=== PATIENT | female | born 1970 | race Caucasian/White ===

== ENCOUNTER 2017-11-09 02:40 | Emergency (ER) | payer SELFPAY ==
[2017-11-09 02:41] VITALS: BP 195/107; PULSE 84; RESP 16; TEMP 36.7; O2SAT 97; BMI 30.9
[2017-11-09 02:45] VITALS: BP 187/108
--- NOTE | 2017-11-09 02:47 | CT_ITS ---
STUDY: CT ABDOMEN AND PELVIS WITHOUT CONTRAST REASON FOR EXAM: Female, 47 years old. Increasing right flank and abdominal pain, with hematuria for 3 days. RADIATION DOSAGE (If Supplied By Facility): CTDIvol = ( 10.94 ) mGy, DLP = ( 544.12 ) mGycm TECHNIQUE: Transaxial images were obtained from the dome of the diaphragm to the symphysis pubis without oral contrast, and without intravenous contrast. Sagittal and coronal images were reconstructed. Individualized dose optimization techniques were used for this CT. COMPARISON: None. FINDINGS: The visualized lung bases are unremarkable. The visualized portions of the heart are within normal limits. Normal liver. There are several small gallstones. Normal spleen. Normal pancreas. 1.5 x 1.3 cm right adrenal nodule, attenuation -8 Hounsfield units compatible with an adrenal adenoma. Normal left adrenal gland. Normal right kidney. Normal left kidney. No hydronephrosis or urinary tract stones. Normal visualized stomach. Normal small intestine. Normal colon. There is non-visualization of the appendix. No secondary signs of acute appendicitis. Evaluation of the right lower quadrant is limited by streak artifact. Normal abdominal aorta. Normal inferior vena cava. Normal retroperitoneum. No intra-abdominal free air. Normal urinary bladder. Uterus grossly normal. No adnexal masses seen. Multiple vascular structures in the inguinal region bilaterally left greater than right suggestive of varices. Minimal degenerative changes of the lumbar spine. Mild convex left lumbar curvature. CT/Abdomen/Pelvis without Cont IMPRESSION: No acute findings in the abdomen or pelvis. No hydronephrosis or urinary tract stones. Minimal cholelithiasis. Right adrenal adenoma. Multiple vascular structures in the inguinal region bilaterally left greater than right suggestive of varices. This may be secondary to deep venous thrombus in the pelvic veins among other etiologies. No pelvic masses are identified. Consider follow-up abdomen and pelvis with intravenous contrast with delayed images of the pelvis including the inguinal regions. Electronically Signed: Hilario Trevino MD at 3:38 EST , Service support ,
[2017-11-09 02:55] LABS: Bacteria 0 SEEN /hpf (None Seen); Mucous, Urine 0 SEEN /hpf (<or=2+); Red Blood Cells-Urine 0 SEEN /hpf (0-5); White Blood Cells 0 SEEN /hpf (0-5)
[2017-11-09 02:58] LABS: Color, Urine Straw (Yellow); Glucose, Dipstick Normal (Normal); Ketone-Dipstick Negative (Negative); Leukocyte Esterase-Dipstick Negative /ul (Negative); Nitrite-Dipstick Negative (Negative); Occult Blood-Urine 25 /ul (Negative); Protein-Dipstick Negative (Negative); Specific Gravity, Urine 1.005 (1.002-1.030); Urine Bilirubin Dipstick Negative (Negative); Urine Clarity Clear (Clear); Urine Urobilinogen Normal (Normal)
[2017-11-09 03:00] VITALS: BP 168/103
[2017-11-09] MEDS: 0.9% Normal Saline 1,000 ML 250 ML IV (03:00)
[2017-11-09] MEDS: Ketorolac 30 MG/ML Syringe IV (03:00)
[2017-11-09] MEDS: Ondansetron 4 MG/2 ML Vial IV (03:00)
[2017-11-09 03:05] LABS: Squamous Epithelial Cells - UA 0-5 SEEN /hpf (5-10)
[2017-11-09 03:11] LABS: Absolute Lymphocyte Count 2.13 X10^3/ul (0.83-4.51); Absolute Neutrophil Count 4.9 X10^3/uL (2.0-7.7); Basophil# 0.03 X10^3/uL; Basophil% 0.4 % (0-1); Eosinophil# 0.05 X10^3/uL; Eosinophils% 0.7 % (0-5); Hematocrit 40.3 % (37-47); Hemoglobin 14.3 g/dl (12.0-15.0); Lymphocyte # 2.13 X10^3/ul (4.0); Lymphocyte % 27.7 % (19-41); Mean Corp Hgb Conc 35.5 g/gl (32-36); Mean Corpuscular Hgb 30.3 pg (27.0-32.0); Mean Corpuscular Volume 85.4 fL (81-99); Mean Platelet Vol. 10.3 fl (6.2-12.0); Monocyte# 0.52 X10^3/uL; Monocyte% 6.8 % (0-10); Neutrophil # 4.93 X10^3/uL (2.7-7.7); Neutrophil % 64.1 % (47-70); POSITIVE COUNT NO; POSITIVE DIFFERENTIAL NO; POSITIVE MORPHOLOGY NO; Platelet Count 249 K/mm3 (150-450); RBC Distribution Width CV 12.6 % (11.6-14.6); RBC Distribution Width SD 38.9 fl (35.1-43.9); Red Blood Count 4.72 M/mm3 (4.2-5.4); White Blood Count 7.7 K/mm3 (4.4-11.0)
[2017-11-09 03:30] LABS: AST(SGOT) 17 U/L (15-37); Alanine Aminotransfer ALT/SGPT 34 U/L (13-56); Albumin, Serum 3.7 g/dL (3.2-5.0); Alkaline Phosphatase 88 U/L (45-117); Anion Gap 9 (5-15); BUN 5 mg/dL (7-18); BUN/Creat Ratio 7.8 RATIO (10-20); Bilirubin, Direct 0.13 mg/dL (0.00-0.30); Calcium,Total 9.2 mg/dL (8.5-10.1); Chloride 106 mmol/L (98-107); Creatinine, Serum 0.64 mg/dL (0.55-1.02); EST Glomerular Filtration Rate 106 mL/min (>60); Est Glom Filt Rate - Afr Amer 128 mL/min (>60); Estimated Creatinine Clearance 94.85 ml/min; Globulin 4.2 g/dL (2.2-4.2); Glucose 119 mg/dL (70-110); Lipase 116 U/L (73-393); Potassium 3.4 mmol/L (3.5-5.1); Protein, Total 7.9 g/dL (6.4-8.2); Sodium Level 139 mmol/L (136-145)
[2017-11-09] MEDS: Dicyclomine 20 MG/2 ML Vial IM (04:03)
--- NOTE | 2017-11-09 04:09 | CT_ITS ---
STUDY: CT ABDOMEN AND PELVIS WITH CONTRAST REASON FOR EXAM: Female, 47 years old. Right-sided pain with hematuria for [address] Possible inguinal varices. RADIATION DOSAGE (If Supplied By Facility): CTDIvol = ( 15.06 ) mGy, DLP = ( 1778.82 ) mGycm TECHNIQUE: Transaxial images were obtained from the dome of the diaphragm to the symphysis pubis without oral contrast. 100ML ml of Isovue 300 contrast was administered. Sagittal and coronal images were reconstructed. Individualized dose optimization techniques were used for this CT. COMPARISON: Contrast CT abdomen and pelvis November 09, 2017 at 3:05 AM. FINDINGS: The visualized lung bases are unremarkable. The visualized portions of the heart are within normal limits. Normal liver. There are a few small gallstones noted previously. Normal spleen. Normal pancreas. Normal bilateral adrenal glands. Normal right kidney. Normal left kidney. Normal visualized stomach. Normal small intestine. Normal colon. There is non-visualization of the appendix. Normal abdominal aorta. Normal inferior vena cava. Normal retroperitoneum. Normal urinary bladder. Uterus grossly normal. No adnexal masses seen. Thinning of the anterior pelvic wall in the midline unchanged. Normal osseous structures. There are numerous varices within the inguinal region left much greater than right and along the anterior and medial margin of the thigh bilaterally. The inferior vena cava is visualized and appears patent. Deep venous thrombus is not seen within the pelvic veins although evaluation is limited as the contrast bolus is not within the pelvic veins. No pelvic sidewall lymphadenopathy. Masses identified within the pelvis. CT/Abdomen/Pelvis W IV Cont ONLY IMPRESSION: Multiple varices involving the inguinal region bilaterally left greater than right, as well as the periphery of the upper thigh, most likely secondary to venous insufficiency. This can be evaluated with ultrasound tailored for evaluation of venous insufficiency. Minimal cholelithiasis. No acute findings in the abdomen or pelvis.. Electronically Signed: Hilario Trevino MD at 5:38 EST , Service support ,
--- NOTE | 2017-11-09 05:45 | ED.DCSUM_ITS ---
- ER Visit Summary Date of Service: 11/09/17 Chief Complaint: Abdominal pain, hematuria History of Present Illness: The patient is a 47 F who presents with the above symptoms. She has had this for 2 days. She states that she started having some gross hematuria but now that the better but she still notices some blood in her urine. She denies dysuria. No history of kidney stones in the past. She denies any suprapubic abdominal pain but has abdominal pain higher in her abdomen. She has had no nausea or vomiting. It radiates up into her chest. She denies a fever. She took aspirin at home for her symptoms. Physical Examination: Vital signs reviewed. HEENT exam unremarkable. Heart is regular rate and rhythm without murmurs. Lungs are clear to auscultation. Abdomen is soft with mild diffuse tenderness to palpation. Extremities reveal no edema. Skin exam normal. Neurologic exam normal. Test Results: Laboratory studies are normal except for potassium 3.4 and glucose of 119. Urinalysis shows no blood or infection. Emergency Department Course and Treatment: Patient was given Toradol and Zofran. She was still having pain so she was given morphine and Bentyl. CAT scan without contrast reveals some questionable varices versus venous thrombosis down in the pelvis. Radiologist recommended a scan with IV contrast. This was obtained and it shows confirmation of the varices which is likely due to venous insufficiency. Patient currently feels better. Treatment Plan: She will be discharged home with Bentyl. I am unclear the etiology of her symptoms. Solid organs, appendix, gallbladder all seem to be unremarkable. No signs of kidney stones or UTI Disposition: Discharge Impression: Abdominal pain This note was generated with [employer] dictation software. It may contain incorrect words, spelling, and punctuation that were not noted in review of the chart prior to signing ED Disposition - Plan for ED Patient: Chief Complaint: Flank Pain Referrals: Jeffrey Marie MD [Primary Care Provider] -
--- NOTE | 2017-11-09 05:45 | ED.DEP ---
ED Disposition - Plan for ED Patient: Disposition: Home or Assisted Living Chief Complaint: Flank Pain Instructions: ED Flank Pain Uncertain Cause Prescriptions: Dicyclomine HCl [Bentyl] 20 mg PO TIDAC #20 cap Referrals: Jeffrey Marie MD [Primary Care Provider] -
[2017-11-09 07:10] VITALS: BP 172/101
[2017-11-09 07:22] VITALS: BP 153/101; PULSE 79; RESP 26; O2SAT 96
[2017-11-09 08:20] VITALS: BP 147/96; PULSE 76; RESP 21; O2SAT 93
== END 2017-11-09 08:21 | disposition home or self-care (01) ==
PROVIDERS: Emergency Provider Emergency Medicine; Family Provider Family Medicine; PCP Family Medicine
DX: R10.9 Unspecified abdominal pain (principal); R31.9 Hematuria, unspecified; I86.2 Pelvic varices
CPT/HCPCS: 74176; 80048; 80076; 81001; 83690; 84484; 85025; 96361; 96372; 96374; 96375; 99285; J7030; Q9967; J2405

== ENCOUNTER 2022-01-15 07:11 | Emergency (ER) | payer OTHER, SELFPAY ==
[2022-01-15 07:12] VITALS: BP 176/101; PULSE 83; RESP 16; TEMP 36.6; O2SAT 97; BMI 27.8
[2022-01-15 07:14] VITALS: BP 168/95; PULSE 83; RESP 16; TEMP 36.6; O2SAT 97
--- NOTE | 2022-01-15 07:27 | ED.VIS.GI ---
HPI HPI - GI History of Present Illness Chief Complaint: Abd Pain Informant: patient Abdominal Pain/Flank Pain Onset: Weeks (1) Context: Gradual Onset Timing: Continuous Quality: Aching Location: Diffuse Worsened by: Food Relieved by: Nothing Nausea/Vomiting/Emesis GI Symptom: Positive for Nausea and Vomiting Quality: Positive for Nonbilious; Negative for Blood streaks, Coffee ground and Hematemesis Diarrhea/Melena/Hematochezia GI Symptom: Negative for Diarrhea, Melena and Hematochezia Associated Symptoms Associated Symptoms: Negative for Dysuria, Frequency and Hematuria Narrative Narrative: Patient presents with abdominal pain that has been getting progressively worse over the past week. Patient states her pain is diffuse across her abdomen. Patient states it is worse with eating. Patient states nothing seems to help with it. Patient admits to some nausea and vomiting. Patient denies any diarrhea, melena, or hematochezia. Patient states she has been constipated. Patient tried enemas at home with no improvement. Patient denies any urinary complaints. Patient denies any fevers or chills. PFSH PFSH Medical History no medical history no medical history Home Medications magnesium citrate 300 ml PO X1 #1 bottle 01/15/22 [Rx Last Taken Unknown] Allergy/AdvReac Type Severity Reaction Status Date / Time No Known Allergies Allergy Verified 01/15/22 07:15 Surgical History Hx of cholecystectomy Social History Smoking Status: Never smoker ROS ROS ED Constitutional Constitutional ED: Denies chills or fever(s) Eyes Eyes: Denies blurry vision or change in vision ENT ENT ED: Denies rhinorrhea or sore throat Cardiovascular Cardiovascular: Denies chest pain or palpitations Respiratory/Chest Respiratory/Chest: Denies cough or dyspnea Gastrointestinal Gastrointestinal: Reports abdominal pain, constipation, nausea and vomiting; Denies diarrhea or melena Genitourinary Genitourinary ED: Denies dysuria or hematuria Musculoskeletal Musculoskeletal: Denies back pain or neck pain Integumentary Denies abscess or rash Neurologic Neurologic: Reports headache(s); Denies weakness Allergic/Immunologic Allergic/Immunologic ED: Denies mouth swelling or urticaria EXAM Physical Exam Const Vital Signs: 01/15/22 07:12 01/15/22 07:14 01/15/22 10:53 Temperature 97.9 F 97.9 F 98.1 F Temperature Source Oral Oral Oral Pulse Rate 83 83 78 Respiratory Rate 16 16 16 Blood Pressure 176/101 H 168/95 H 156/98 H Blood Pressure Mean 126 119 117 Pulse Ox 97 97 98 Oxygen Delivery Method Room Air Room Air Room Air 01/15/22 11:21 Temperature 98.1 F Temperature Source Oral Pulse Rate 78 Respiratory Rate 16 Blood Pressure 156/98 H Blood Pressure Mean 117 Pulse Ox 98 Oxygen Delivery Method Room Air Positive well nourished and well developed General Appearance ED: well developed and NAD HEENT Reports moist mucous membranes Neck supple and no JVD Resp normal respiratory effort and clear to auscultation bilaterally Cardio regular rate and regular rhythm GI Inspection: abdominal distention Auscultation: hypoactive bowel sounds Palpation: soft and tender epigastric, LLQ, RLQ, LUQ, RUQ, periumbilical and suprapubic; Negative for guarding or rebound tenderness present Neuro CN's II-XII intact bilaterally, moves all extremities and no sensory deficits noted Sensorium / Orientation: alert, oriented to person, oriented to place, oriented to time and orientation impaired Motor Exam: strength 5/5 throughout Psych mental status grossly normal MDM MDM MDM Narrative Medical decision making narrative: Patient was given IV fluids, morphine, and Zofran. CBC was within normal limits. Comprehensive metabolic profile showed a mild hypokalemia of 3.0. Urinalysis does not show any evidence of urinary tract infection or hematuria. CT scan of the abdomen pelvis was obtained. There is a very large amount of fecal material seen throughout the entire colon. There is no evidence of bowel obstruction. This was interpreted by the radiologist and reviewed by myself. Patient was given a soapsuds enema with minimal improvement. Patient was advised of her findings. Patient was instructed to drink plenty of fluids. Patient was given a prescription for magnesium citrate. Patient was also instructed to get [id number] MiraLAX to take as needed for constipation. Patient was instructed to follow-up with her primary care physician in 5 to 7 days. Patient and family understood and were agreeable with the plan. All questions were answered. Lab Data Attestation: I reviewed the patient's lab results. Labs: Laboratory Results - last 24 hr 01/15/22 01/15/22 01/15/22 07:25 07:25 08:08 WBC 6.6 RBC 4.41 Hgb 12.7 Hct 36.6 L MCV 83.0 MCH 28.8 MCHC 34.7 RDW Std Deviation 41.5 RDW Coeff of Jameel 13.6 Plt Count 273 MPV 9.7 Immature Gran % (Auto) 0.300 Neut % (Auto) 68.4 Lymph % (Auto) 20.6 [place] % (Auto) 9.9 Eos % (Auto) 0.5 Baso % (Auto) 0.3 Absolute Neuts (auto) 4.5 Absolute Lymphs (auto) 1.35 Nucleated RBC % 0 Reactive Lymphocytes RARE Sodium 138 Potassium 3.0 L Chloride 106 Carbon Dioxide 26.0 Anion Gap 6 BUN 10 Creatinine 0.47 L Estim Creat Clear Calc 123.66 Est GFR (MDRD) Af Amer 180 Est GFR (MDRD) Non-Af 149 BUN/Creatinine Ratio 21.3 H Glucose 106 Calcium 8.5 Total Bilirubin 0.40 AST 16 ALT 23 Alkaline Phosphatase 120 H Total Protein 6.9 Albumin 3.2 Globulin 3.7 Albumin/Globulin Ratio 0.9 Lipase 40 L Urine Color Yellow Urine Clarity Clear Urine pH 6.5 Ur Specific [place] 1.015 Urine Protein Negative Urine Glucose (UA) Normal Urine Ketones 15 H Urine Occult Blood Negative Urine Nitrite Negative Urine Bilirubin Negative Urine Urobilinogen Normal Ur Leukocyte Esterase Negative Urine RBC 0-5 SEEN Urine WBC 0 SEEN Ur Squamous Epith Cells 0-5 SEEN Urine Bacteria RARE Urine Mucus 0 SEEN Radiography Diagnostic Testing: Clinical Impression(s) from Imaging Studies Abdomen/Pelvis CT 01/15/22 07:30 IMPRESSION: A very large amount of fecal material is seen throughout the colon. The patient is status post cholecystectomy Electronically Signed: Joel Mills MD at 9:48 EDT , Discharge Plan Triage Chief Complaint: Abd Pain ED Provider: Chester Foster Dx/Rx/DC Orders Clinical Impression: Constipation, Abdominal pain Instructions: ED Constipation (Adult) Prescriptions: New magnesium citrate Solution 300 ml PO X1 Qty: 1 RF: 0 Primary Care Provider: Jeffrey Marie Referrals: Jeffrey Marie DO [Primary Care Provider] - 3-5 Days Activity Restrictions/Additional Instructions: You may also take [id number] MiraLAX as needed for constipation. Disposition Disposition: Home, Self Care Discharge Date/Time: 01/15/22 12:36
--- NOTE | 2022-01-15 07:30 | CT_ITS ---
STUDY: CT ABDOMEN AND PELVIS WITH CONTRAST REASON FOR EXAM: Female, 51 years old. One-week history of constipation. RADIATION DOSAGE (If Supplied By Facility): CTDIvol = ( 10.19 ) mGy, DLP = ( 536.25 ) mGycm TECHNIQUE: Transaxial images were obtained from the dome of the diaphragm to the symphysis pubis with oral contrast. Oral and amp; IV Gastrografin and amp; 100mL Isovue-300 was administered. Sagittal and coronal images were reconstructed. Individualized dose optimization techniques were used for this CT. COMPARISON: Comparison is made with prior examination dated 11/09/2017. FINDINGS: Minimal increased markings at the lung bases suggests a mild degree of atelectasis. The visualized portions of the heart are within normal limits. Normal liver. The patient is status post cholecystectomy. Normal spleen. Normal pancreas. Normal bilateral adrenal glands. Normal right kidney. Normal left kidney. There is a small hiatal hernia. Normal small intestine. A very large amount of fecal material is seen throughout the entire colon down to the rectum. Scattered sigmoid diverticula. The appendix is visualized and appears normal. Normal abdominal aorta. Normal inferior vena cava. Normal retroperitoneum. The urinary bladder is distended. Normal abdominal wall. Normal osseous structures. CT/Abdomen/Pelvis WITH Contrast IMPRESSION: A very large amount of fecal material is seen throughout the colon. The patient is status post cholecystectomy Electronically Signed: Joel Mills MD at 9:48 EDT ,
[2022-01-15] MEDS: Ondansetron 4 MG/2 ML Vial IV (07:38)
[2022-01-15] MEDS: 0.9% Normal Saline 1,000 ML 1000 ML IV (07:38)
[2022-01-15 07:40] LABS: Absolute Lymphocyte Count 1.35 X10^3/uL (0.83-4.51); Absolute Neutrophil Count 4.5 X10^3/uL (2.0-7.7); Basophil# 0.02 X10^3/uL; Basophil% 0.3 % (0-1); Eosinophil# 0.03 X10^3/uL; Eosinophils% 0.5 % (0-5); Hematocrit 36.6 % (37-47); Hemoglobin 12.7 g/dL (12.0-15.0); Lymphocyte # 1.35 X10^3/ul (0.83-4.51); Lymphocyte % 20.6 % (19-41); Mean Corp Hgb Conc 34.7 g/dL (32-36); Mean Corpuscular Hgb 28.8 pg (27.0-32.0); Mean Platelet Vol. 9.7 fl (6.2-12.0); Monocyte# 0.65 X10^3/uL; Monocyte% 9.9 % (0-10); NRBC Flagged by Analyzer 0 % (0-5); Neutrophil # 4.49 X10^3/uL (2.7-7.7); Neutrophil % 68.4 % (47-70); POSITIVE MORPHOLOGY YES; Platelet Count 273 K/mm3 (150-450); RBC Distribution Width CV 13.6 % (11.6-14.6); RBC Distribution Width SD 41.5 fl (35.1-43.9); Red Blood Count 4.41 M/mm3 (4.2-5.4); White Blood Count 6.6 K/mm3 (4.4-11.0)
[2022-01-15 07:42] LABS: Differential Indicated SCAN CRITERIA MET
[2022-01-15 07:56] LABS: ALB/GLOB Ratio 0.9 RATIO (0.9-2.4); AST(SGOT) 16 U/L (15-37); Alanine Aminotransfer ALT/SGPT 23 U/L (13-56); Albumin, Serum 3.2 g/dL (3.2-5.0); Alkaline Phosphatase 120 U/L (45-117); Anion Gap 6 (5-15); BUN 10 mg/dL (7-18); BUN/Creat Ratio 21.3 RATIO (10-20); Calcium,Total 8.5 mg/dL (8.5-10.1); Chloride 106 mmol/L (98-107); Creatinine, Serum 0.47 mg/dL (0.55-1.02); EST Glomerular Filtration Rate 149 mL/min (>60); Est Glom Filt Rate - Afr Amer 180 mL/min (>60); Estimated Creatinine Clearance 123.66 ml/min; Globulin 3.7 g/dL (2.2-4.2); Glucose 106 mg/dL (74-106); Lipase 40 U/L (73-393); Protein, Total 6.9 g/dL (6.4-8.2); Sodium Level 138 mmol/L (136-145)
[2022-01-15 08:12] LABS: Mucous, Urine 0 SEEN /hpf (<or=2+); White Blood Cells 0 SEEN /hpf (0-5)
[2022-01-15 08:15] LABS: Color, Urine Yellow (Yellow); Glucose, Dipstick Normal (Normal); Ketone-Dipstick 15 mg/dl (Negative); Leukocyte Esterase-Dipstick Negative /ul (Negative); Nitrite-Dipstick Negative (Negative); Occult Blood-Urine Negative /ul (Negative); Protein-Dipstick Negative (Negative); Specific Gravity, Urine 1.015 (1.002-1.030); Urine Bilirubin Dipstick Negative (Negative); Urine Clarity Clear (Clear); Urine Urobilinogen Normal (Normal); Urine pH 6.5 (5.0 - 8.0)
[2022-01-15 08:21] LABS: Bacteria RARE /hpf (None Seen); Red Blood Cells-Urine 0-5 SEEN /hpf (0-5); Squamous Epithelial Cells - UA 0-5 SEEN /hpf (5-10)
[2022-01-15 08:41] LABS: Reactive Lymphocyte RARE
[2022-01-15 10:53] VITALS: BP 156/98; PULSE 78; RESP 16; TEMP 36.7; O2SAT 98
[2022-01-15 11:21] VITALS: BP 156/98; PULSE 78; RESP 16; TEMP 36.7; O2SAT 98
== END 2022-01-15 12:36 | disposition home or self-care (01) ==
PROVIDERS: Emergency Provider Emergency Medicine; PCP Family Medicine; Visit Provider Emergency Medicine
DX: K59.00 Constipation, unspecified (principal); R10.9 Unspecified abdominal pain; R11.2 Nausea with vomiting, unspecified; E87.6 Hypokalemia; Z90.49 Acquired absence of other specified parts of digestive tract
CPT/HCPCS: 74177; 80053; 81001; 83690; 85025; 96361; 96374; 99285; Q9967; A4216; J2405

== ENCOUNTER 2022-02-17 20:34 | Inpatient (IN) | payer OTHER, SELFPAY ==
[2022-02-17 20:35] VITALS: BP 136/98; PULSE 98; RESP 16; TEMP 36.7; O2SAT 94; BMI 26.5
--- NOTE | 2022-02-17 20:55 | CT_ITS ---
STUDY: CT ABDOMEN AND PELVIS WITH CONTRAST REASON FOR EXAM: Female, 51 years old. Abdominal pain, edema of the legs RADIATION DOSAGE (If Supplied By Facility): CTDIvol = ( 14.06 ) mGy, DLP = ( 906.91 ) mGycm TECHNIQUE: Transaxial images were obtained from the dome of the diaphragm to the symphysis pubis with oral contrast. 100 mm ISOVUE 300 was administered. Sagittal and coronal images were reconstructed. Individualized dose optimization techniques were used for this CT. COMPARISON: None. FINDINGS: The visualized lung bases are unremarkable. The visualized portions of the heart are within normal limits. Normal liver. There is non-visualization of the gallbladder, which may be secondary to either contraction or a prior cholecystectomy. Normal spleen. Normal pancreas. Normal bilateral adrenal glands. Normal right kidney. Normal left kidney. There is a small hiatal hernia. No dilated loops of small bowel although some fecal content identified in the distal bowel. Diffuse distention throughout the colon with significant fecal residue involving the cecum, transverse colon, descending colon and rectosigmoid colon. There is non-visualization of the appendix. Normal abdominal aorta. Flat/nondistended inferior vena cava. Normal retroperitoneum. Normal urinary bladder. Trace free fluid in the right lower quadrant (image 88 series 2) Normal abdominal wall. No destructive bony process. CT/Abdomen/Pelvis WITH Contrast IMPRESSION: 1. Significant diffuse colonic fecal material throughout the colon, extending to the rectosigmoid colon. 2. Trace right lower quadrant free fluid. Electronically Signed: Eyad Wilkins MD ([place]) at 23:01 EDT ,
[2022-02-17 21:12] LABS: Bacteria 0 SEEN /hpf (None Seen); Mucous, Urine 0 SEEN /hpf (<or=2+); Red Blood Cells-Urine 0 SEEN /hpf (0-5); Squamous Epithelial Cells - UA 0 SEEN /hpf (5-10); White Blood Cells 0 SEEN /hpf (0-5)
[2022-02-17 21:15] LABS: Absolute Lymphocyte Count 2.42 X10^3/uL (0.83-4.51); Absolute Neutrophil Count 3.8 X10^3/uL (2.0-7.7); Basophil# 0.03 X10^3/uL; Basophil% 0.4 % (0-1); Eosinophil# 0.05 X10^3/uL; Eosinophils% 0.7 % (0-5); Hematocrit 34.9 % (37-47); Hemoglobin 11.7 g/dL (12.0-15.0); Lymphocyte # 2.42 X10^3/ul (0.83-4.51); Lymphocyte % 34.5 % (19-41); Mean Corp Hgb Conc 33.5 g/dL (32-36); Mean Corpuscular Hgb 28.2 pg (27.0-32.0); Mean Corpuscular Volume 84.1 fL (81-99); Mean Platelet Vol. 8.9 fl (6.2-12.0); Monocyte# 0.74 X10^3/uL; Monocyte% 10.5 % (0-10); NRBC Flagged by Analyzer 0 % (0-5); Neutrophil # 3.76 X10^3/uL (2.7-7.7); Neutrophil % 53.6 % (47-70); POSITIVE MORPHOLOGY YES; Platelet Count 366 K/mm3 (150-450); RBC Distribution Width CV 13.8 % (11.6-14.6); RBC Distribution Width SD 42.3 fl (35.1-43.9); Red Blood Count 4.15 M/mm3 (4.2-5.4)
[2022-02-17 21:21] LABS: Differential Indicated SCAN CRITERIA MET
[2022-02-17 21:31] LABS: Color, Urine Yellow (Yellow); Glucose, Dipstick Normal (Normal); Ketone-Dipstick Negative (Negative); Leukocyte Esterase-Dipstick Negative /ul (Negative); Nitrite-Dipstick Negative (Negative); Occult Blood-Urine Negative /ul (Negative); Protein-Dipstick Negative (Negative); Specific Gravity, Urine 1.005 (1.002-1.030); Urine Bilirubin Dipstick Negative (Negative); Urine Clarity Clear (Clear); Urine Urobilinogen Normal (Normal)
[2022-02-17 21:42] LABS: ALB/GLOB Ratio 0.8 RATIO (0.9-2.4); AST(SGOT) 38 U/L (15-37); Alanine Aminotransfer ALT/SGPT 53 U/L (13-56); Albumin, Serum 2.6 g/dL (3.2-5.0); Alkaline Phosphatase 132 U/L (45-117); Anion Gap 5 (5-15); BUN 9 mg/dL (7-18); BUN/Creat Ratio 15.8 RATIO (10-20); Calcium,Total 8.3 mg/dL (8.5-10.1); Chloride 99 mmol/L (98-107); Creatinine, Serum 0.57 mg/dL (0.55-1.02); EST Glomerular Filtration Rate 119 mL/min (>60); Est Glom Filt Rate - Afr Amer 144 mL/min (>60); Estimated Creatinine Clearance 97.68 ml/min; Globulin 3.1 g/dL (2.2-4.2); Glucose 119 mg/dL (74-106); Lipase 96 U/L (73-393); Potassium 2.9 mmol/L (3.5-5.1); Protein, Total 5.7 g/dL (6.4-8.2); Sodium Level 138 mmol/L (136-145)
[2022-02-17 21:56] LABS: Differential Comment SCANNED
[2022-02-17 22:44] VITALS: BP 154/98; PULSE 74; RESP 17; TEMP 36.8; O2SAT 98
--- NOTE | 2022-02-17 23:04 | EDS_ITS ---
HPI History of Present Illness Chief Complaint: Edema Informant: patient Narrative Narrative: 51-year-old female presenting to the emergency room with abdominal distention bilateral feet swelling. Patient was seen in the emergency room in January and had a tremendous amount of stool burden. She states that she went home and was able to have bowel movements. Now she states that she is distended not passing much gas and having very little bowel movement. She states that she has battled constipation for most of her life. She is otherwise a healthy individual takes a ARB for hypertension. She does not recall any recent [id number] medications. She does not recall any severe diarrhea earlier in the year [facility] Medical History (Updated 02/17/22 @ 23:[address] Mark Redd DO) Hypertension Home Medications telmisartan 40 mg PO DAILY 02/17/22 [History Last Taken Unknown] Allergy/AdvReac Type Severity Reaction Status Date / Time No Known Allergies Allergy Verified 02/17/22 20:42 Surgical History Hx of cholecystectomy Social History (Updated 02/17/22 @ 23:[address] Mark Redd DO) Smoking Status: Never smoker substance use type: does not use ROS ROS ED Constitutional Constitutional ED: Denies chills or weight loss Eyes Eyes: Denies change in vision or diplopia ENT ENT ED: Denies ear pain, rhinorrhea or sore throat Cardiovascular Cardiovascular: Denies chest pain, orthopnea, palpitations or racing heartbeat Respiratory/Chest Respiratory/Chest: Denies cough, dyspnea or orthopnea Gastrointestinal Gastrointestinal: Denies abdominal pain, diarrhea, nausea or vomiting Genitourinary Genitourinary ED: Denies dysuria, hematuria or urinary frequency Musculoskeletal Musculoskeletal: Denies arthralgias or myalgias Integumentary Denies abscess or rash Neurologic Neurologic: Denies headache(s) or weakness Psychiatric Psychiatric: Denies anxiety, depression, suicidal ideation or suicidal thoughts Endocrine Endocrinology: Denies polydipsia, polyphagia or polyuria Allergic/Immunologic Allergic/Immunologic ED: Denies mouth swelling, tongue swelling or urticaria EXAM Physical Exam Const Vital Signs: 02/17/22 20:35 02/17/22 21:30 02/17/22 22:44 Temperature 98.0 F 98.2 F Temperature Source Temporal Temporal Pulse Rate 98 74 Respiratory Rate 16 17 Respiratory Effort Normal Respiratory Pattern Normal Blood Pressure 136/98 H 154/98 H Blood Pressure Mean 110 116 Pulse Ox 94 98 Oxygen Delivery Method Room Air Room Air Positive well nourished and well developed General Appearance ED: well developed HEENT Reports normocephalic, head/scalp atraumatic, TM's clear and moist mucous membranes Negative for trauma Tympanic Membrane ED: Yes TM's clear Eyes PERRL and EOMs intact bilaterally Neck no lymphadenopathy, supple and no JVD Resp normal respiratory effort and clear to auscultation bilaterally Cardio regular rate, regular rhythm and no murmurs GI non-tender Inspection: abdominal distention Auscultation: hypoactive bowel sounds Palpation: soft Back/Spine no CVA tenderness and normal ROM Extremity normal to inspection General Extremety ED: Negative for edema General Extremity: Negative for edema Neuro oriented x3 and CN's II-XII intact bilaterally Sensorium / Orientation: alert Motor Exam: strength 5/5 throughout Psych mental status grossly normal Mood & Affect: Negative for depressed or tearful Skin no rashes or lesions noted and no wounds MDM MDM MDM Narrative Medical decision making narrative: Patient's white count is 7 with a hemoglobin of 11.7. Potassium 2.9 creatinine 0.57. Urinalysis is normal. CT of the abdomen pelvis with oral and IV contrast was obtained. This demonstrates significant gaseous distention of the colon. I reviewed her abdominal CT from January. I am concerned about megacolon. Discussed the case with Dr. Pathak from gastroenterology and her hospitalist Dr. Martini. Lab Data Attestation: I reviewed the patient's lab results. Labs: Laboratory Results - last 24 hr 02/17/22 02/17/22 02/17/22 21:01 21:04 21:04 WBC 7.0 RBC 4.15 L Hgb 11.7 L Hct 34.9 L MCV 84.1 MCH 28.2 MCHC 33.5 RDW Std Deviation 42.3 RDW Coeff of Jameel 13.8 Plt Count 366 MPV 8.9 Immature Gran % (Auto) 0.300 Neut % (Auto) 53.6 Lymph % (Auto) 34.5 [place] % (Auto) 10.5 H Eos % (Auto) 0.7 Baso % (Auto) 0.4 Absolute Neuts (auto) 3.8 Absolute Lymphs (auto) 2.42 Nucleated RBC % 0 Differential Comment SCANNED Sodium 138 Potassium 2.9 L Chloride 99 Carbon Dioxide 34.0 H Anion Gap 5 BUN 9 Creatinine 0.57 Estim Creat Clear Calc 97.68 Est GFR (MDRD) Af Amer 144 Est GFR (MDRD) Non-Af 119 BUN/Creatinine Ratio 15.8 Glucose 119 H Calcium 8.3 L Total Bilirubin 0.50 AST 38 H ALT 53 Alkaline Phosphatase 132 H Total Protein 5.7 L Albumin 2.6 L Globulin 3.1 Albumin/Globulin Ratio 0.8 L Lipase 96 Urine Color Yellow Urine Clarity Clear Urine pH 7.0 Ur Specific [place] 1.005 Urine Protein Negative Urine Glucose (UA) Normal Urine Ketones Negative Urine Occult Blood Negative Urine Nitrite Negative Urine Bilirubin Negative Urine Urobilinogen Normal Ur Leukocyte Esterase Negative Urine RBC 0 SEEN Urine WBC 0 SEEN Ur Squamous Epith Cells 0 SEEN Urine Bacteria 0 SEEN Urine Mucus 0 SEEN Radiography Diagnostic Testing: Clinical Impression(s) from Imaging Studies Abdomen/Pelvis CT 02/17/22 20:55 IMPRESSION: 1. Significant diffuse colonic fecal material throughout the colon, extending to the rectosigmoid colon. 2. Trace right lower quadrant free fluid. Electronically Signed: Eyad Wilkins MD ([place]) at 23:01 EDT Reading Location ID and State: [facility] / [place] , Service support , Discharge Plan Dx/Rx/DC Orders Clinical Impression: Acquired megacolon, Acute hypokalemia Disposition Disposition: Acute Care Hospital [facility]
[2022-02-17 23:22] VITALS: BP 152/96; PULSE 74; RESP 15; TEMP 36.6; O2SAT 98
[2022-02-17] MEDS: Morphine 4 MG/ML Syringe IV (23:28)
[2022-02-17] MEDS: Ondansetron 4 MG/2 ML Vial IV (23:28)
[2022-02-17 23:31] LABS: Magnesium 2.7 mg/dL (1.6-2.6)
--- NOTE | 2022-02-17 23:40 | HP.PCM_ITS ---
Documented by User: FINA Chaney 02/18/22 00:01 HPI - General General Date of Admission: 02/17/22 Date of Service: 02/17/22 Chief Complaint: Abdominal distention, pain HPI Narrative KAYCEE NELSON, is a 51 F who presents with complaints of constipation and abdominal distention. Patient states that this has been ongoing for months with intermittent constipation but the abdominal distention has gotten worse over the past 2 weeks. Patient states that she has discomfort. Patient also states that she has had increased lower extremity edema. Patient reports that she has a medical history that includes hypertension and insomnia. [facility] Medical History Hypertension Home Medications telmisartan 40 mg PO DAILY 02/17/22 [History Last Taken Unknown] Allergy/AdvReac Type Severity Reaction Status Date / Time No Known Allergies Allergy Verified 02/17/22 20:42 Surgical History Hx of cholecystectomy Social History Smoking Status: Never smoker substance use type: does not use ROS Constitutional Constitutional: Reports poor appetite and weight gain; Denies anorexia, chills, fatigue, fever(s) or malaise Cardiovascular Cardiovascular: Reports edema; Denies chest pain, palpitations or syncope Respiratory/Chest Respiratory/Chest: Denies cough, shortness of breath at rest, shortness of breath with exertion or wheezing Gastrointestinal Gastrointestinal: Reports abdominal pain, constipation and weight changes Genitourinary Genitourinary: Denies dysuria Musculoskeletal Musculoskeletal: Denies back pain, extremity pain, joint pain, joint stiffness or joint swelling Integumentary Integumentary: Denies dry skin Neurologic Neurologic: Denies abnormal gait, abnormal speech, confusion or dizziness Psychiatric Psychiatric: Denies anxiety or depression Endocrine Endocrinology: Denies change in body appearance Hematologic/Lymphatic Hematologic/Lymphatic: Denies anemia Vital Signs Vital Signs Vital Signs: 02/17/22 20:35 02/17/22 21:30 02/17/22 22:44 Temperature 98.0 F 98.2 F Temperature Source Temporal Temporal Pulse Rate 98 74 Respiratory Rate 16 17 Respiratory Effort Normal Respiratory Pattern Normal Blood Pressure 136/98 H 154/98 H Blood Pressure Mean 110 116 Pulse Ox 94 98 Oxygen Delivery Method Room Air Room Air Weight Weight: 150 lb Body Mass Index (BMI) 26.5 Physical Exam Const alert, oriented x3 and no apparent distress General Appearance: cooperative HEENT normocephalic and head/scalp atraumatic Eyes conjunctivae normal and no scleral icterus Neck supple General: trachea midline Resp normal respiratory effort, normal air movement and clear to auscultation bilaterally Cardio regular rate, regular rhythm, S1 normal heart sound, S2 normal heart sound and peripheral pulses 2+ throughout GI Inspection: abdominal distention Auscultation: hypoactive bowel sounds Palpation: tender Extremity normal capillary refill General Extremity: edema bilateral lower extremity Details: moderate and no tenderness to palpation of joints or extremities Skin General Skin Exam: no breakdown and turgor normal Lesions: no lesions Rashes: no rashes Neuro no focal motor deficits and no sensory deficits noted Motor Exam: general weakness Psych thought process normal, cooperative and affect normal Appearance: appropriate Results Lab / Micro Data Result Diagrams: 02/17/22 21:04 02/17/22 21:04 Labs: Laboratory Results - last 24 hr 02/17/22 21:01: Urine Color Yellow, Urine Clarity Clear, Urine pH 7.0, Ur Specific [place] 1.005, Urine Protein Negative, Urine Glucose (UA) Normal, Urine Ketones Negative, Urine Occult Blood Negative, Urine Nitrite Negative, Urine Bilirubin Negative, Urine Urobilinogen Normal, Ur Leukocyte Esterase Negative, Urine RBC 0 SEEN, Urine WBC 0 SEEN, Ur Squamous Epith Cells 0 SEEN, Urine Bacteria 0 SEEN, Urine Mucus 0 SEEN 02/17/22 21:04: WBC 7.0, RBC 4.15 L, Hgb 11.7 L, Hct 34.9 L, MCV 84.1, MCH 28.2, MCHC 33.5, RDW Std Deviation 42.3, RDW Coeff of Jameel 13.8, Plt Count 366, MPV 8.9, Immature Gran % (Auto) 0.300, Neut % (Auto) 53.6, Lymph % (Auto) 34.5, [place] % (Auto) 10.5 H, Eos % (Auto) 0.7, Baso % (Auto) 0.4, Absolute Neuts (auto) 3.8, Absolute Lymphs (auto) 2.42, Nucleated RBC % 0, Differential Comment SCANNED 02/17/22 21:04: Sodium 138, Potassium 2.9 L, Chloride 99, Carbon Dioxide 34.0 H, Anion Gap 5, BUN 9, Creatinine 0.57, Estim Creat Clear Calc 97.68, Est GFR (MDRD) Af Amer 144, Est GFR (MDRD) Non-Af 119, BUN/Creatinine Ratio 15.8, Glucose 119 H, Calcium 8.3 L, Total Bilirubin 0.50, AST 38 H, ALT 53, Alkaline Phosphatase 132 H, Total Protein 5.7 L, Albumin 2.6 L, Globulin 3.1, Albumin/Globulin Ratio 0.8 L, Lipase 96 02/17/22 21:04: Magnesium 2.7 H Radiology Impression Abdomen/Pelvis CT 02/17/22 20:55 IMPRESSION: 1. Significant diffuse colonic fecal material throughout the colon, extending to the rectosigmoid colon. 2. Trace right lower quadrant free fluid. Electronically Signed: Eyad Wilkins MD ([place]) at 23:01 EDT , Assessment & Plan Assessment/Plan (1) Acquired megacolon: (2) Acute hypokalemia: PLAN: 1. Acquired megacolon -Admit to ICU, plans for patient to receive neostigmine -Consult Dr. Pathak, case discussed with Dr. Pathak by ER physician -N.p.o. after midnight -Consult nutrition as patient has ongoing chronic constipation per dietary recommendations -Daily weights -CBC and BMP ordered daily -As needed Zofran and morphine ordered 2. Acute hypokalemia -Potassium chloride 40 mEq IV ordered -LR at 75 mL/h -BMP daily 3. Hypertension -Continue telmisartan -Vital signs per protocol 4. Insomnia -Continue as needed Ambien DVT prophylaxis-subcu Lovenox This patient was seen by Batool Whiting NP-C under the supervision of Dr. Martini. 28 minutes spent in clinical coordination of patient's plan of care. Documented by User: Dr. Rehan Martini MD 02/18/22 00:27 HPI - General General Date of Admission: 02/17/22 [facility] Medical History Hypertension Home Medications telmisartan 40 mg PO DAILY 02/17/22 [History Last Taken Unknown] Allergy/AdvReac Type Severity Reaction Status Date / Time No Known Allergies Allergy Verified 02/17/22 20:42 Surgical History Hx of cholecystectomy Social History Smoking Status: Never smoker substance use type: does not use Results Lab / Micro Data Result Diagrams: 02/17/22 21:04 02/17/22 21:04 Charges/Coding Addendum Addendum: Patient was seen and examined independently. I agree with assessment and plan by Batool Whiting NP-Paola. Patient reports 1 month history of progressively worsening abdominal distention; and swelling of her bilateral legs. She reports a decrease in amount of stool volume. Last day her bowels moved was on the same day of presentation. She reports abdominal pain and abdominal pressure. She reports some nausea and vomiting. Because of a distention of her belly she has not been eating. Emergency department doctor on this presentation discussed the case with a GI doctor. Of note patient was at the ED on 01/15/2022. CT scan of the abdomen and pelvis was obtained at that time. CT scan of the abdomen and pelvis at that time revealed large amount of fecal material seen to the entire colon. Patient was given soapsuds enema with minimal improvement. She was instructed drink plenty of fluids and she was discharged home with a new prescription of magnesium citrate. Physical exam: General: Well-nourished, well-developed. Head: Normocephalic, atraumatic, no tenderness Eyes: Vision is grossly intact. EOMI ENT, no trauma, no rhinorrhea Neck: Nontender, full range of motion, no spinal tenderness, deformities, step- off CVS: Regular rate and rhythm. S1-S2 present. No murmur, gallop or rub. Respiratory : clear to auscultation bilaterally, chest wall nontender, no wheezing Abdomen: Soft, distended, normal bowel sounds. : Deferred Back: Nontender, no CVA tenderness, no midline spinal tenderness, deformities, step-offs Extremities: Nontender full range of motion, no trauma. 2+ edema bilateral legs. Skin: Normal color, no trauma, abrasions Neuro: Alert, oriented, cranial nerves II through XII grossly intact. Psychiatry: Normal mood. Normal affect. Not depressed. Not anxious. Acquired megacolon Abdomen and pelvis CT on this presentation was visualized; independently interpreted and compared with abdomen and pelvis CT on 01/15/2022. Extensive extension of bowel noted on abdomen and pelvis CT of both presentations.. Stool burden on this presentation compared with a stool burden on abdomen and pelvis CT on 01/15/2022 appears less. Review of CMP showed alkaline phosphatase of 132. Of note her alkaline phosphatase of 01/15/2022 was 120 and on 11/09/2017 was 88. ED doctor discussed the case with GI doctor on-call who will consider neostigmine. Will admit patient to the intensive care unit as patient may be a candidate of neostigmine. Will consult GI to help with further management. In the meantime patient will be kept n.p.o. except with meds. Lactated Ringer's ordered. Will trend CBC and BMP. Acute hypokalemia Review of CMP showed a potassium of 2.9 and magnesium of 2.7. Potassium of 2.9 on presentation. IV replacement ordered. Lactated Ringer's ordered. Trend BMP. Hypertension Blood pressure is not within goal Home blood pressure medication continued. Trend blood pressure and adjust blood pressure medications. Bilateral lower extremity edema Likely secondary to being: SHRUTHI hos[place]ustin ordered. Time spent at the bedside in evaluating patient and discussing case with patient and family was 30 minutes. Visit Charges Inpatient E&M: 67697 Init Hosp L3
[2022-02-18] VITALS (36 sets, daily range): BP systolic 106–161; BP diastolic 83–110; PULSE 73–104; RESP 15–28; TEMP 36.1–36.7; O2SAT 86–100; BMI 25.7
[2022-02-18] MEDS: Potassium Chloride 10mEq/100mL 10 MEQ/100 ML IV.SOLN. 100 MEQ IV BOLUS ×8 (01:02→08:53)
[2022-02-18] MEDS: Lactated Ringers 1,000 ML 75 ML IV ×3 (01:02→20:04)
[2022-02-18] MEDS: Acetaminophen 325 MG Tablet 650 MG PO (01:03)
[2022-02-18] MEDS: Zolpidem Tartrate 5 MG Tablet PO ×2 (02:07→22:16)
[2022-02-18 04:26] LABS: Absolute Lymphocyte Count 1.97 X10^3/uL (0.83-4.51); Absolute Neutrophil Count 2.5 X10^3/uL (2.0-7.7); Basophil# 0.02 X10^3/uL; Basophil% 0.4 % (0-1); Eosinophil# 0.07 X10^3/uL; Eosinophils% 1.3 % (0-5); Hemoglobin 10.4 g/dL (12.0-15.0); Lymphocyte # 1.97 X10^3/ul (0.83-4.51); Lymphocyte % 37.8 % (19-41); Mean Corp Hgb Conc 33.5 g/dL (32-36); Mean Corpuscular Volume 83.6 fL (81-99); Monocyte# 0.65 X10^3/uL; Monocyte% 12.5 % (0-10); NRBC Flagged by Analyzer 0 % (0-5); Neutrophil # 2.48 X10^3/uL (2.7-7.7); Neutrophil % 47.6 % (47-70); POSITIVE MORPHOLOGY YES; Platelet Count 308 K/mm3 (150-450); RBC Distribution Width CV 13.9 % (11.6-14.6); RBC Distribution Width SD 42.5 fl (35.1-43.9); Red Blood Count 3.71 M/mm3 (4.2-5.4); White Blood Count 5.2 K/mm3 (4.4-11.0)
[2022-02-18 04:30] LABS: Differential Indicated SCAN CRITERIA MET
[2022-02-18 04:43] LABS: Anion Gap 2 (5-15); BUN 8 mg/dL (7-18); BUN/Creat Ratio 20.7 RATIO (10-20); Calcium,Total 7.9 mg/dL (8.5-10.1); Chloride 103 mmol/L (98-107); Creatinine, Serum 0.39 mg/dL (0.55-1.02); EST Glomerular Filtration Rate 187 mL/min (>60); Est Glom Filt Rate - Afr Amer 226 mL/min (>60); Estimated Creatinine Clearance 142.76 ml/min; Glucose 91 mg/dL (74-106); Potassium 3.1 mmol/L (3.5-5.1); Sodium Level 140 mmol/L (136-145)
[2022-02-18 05:02] LABS: Differential Comment SCANNED; Reactive Lymphocyte 1+
--- NOTE | 2022-02-18 07:14 | PN.HOSP_ITS ---
Subjective Subjective Has been distended for past month. No similar events. Minimal flatus. +BMs. Objective Data Objective Data Vital Signs: Vital Signs Temp Pulse Resp BP Pulse Ox 36.7 C 76 18 126/88 H 98 02/18/22 04:00 02/18/22 06:00 02/18/22 06:00 02/18/22 06:00 02/18/22 06:00 Oxygen Flow Rate (L/min) 2 Oxygen Delivery Method Room Air Weight: 65.9 kg Body Mass Index (BMI) 25.7 Intake & Output: Intake and Output for Last 24 Hours 02/16/22 02/17/22 02/18/22 23:59 23:59 23:59 Intake Total 420 / 420 Output Total 0 / 0 Balance 420 / 420 Lab / Micro Data Result Diagrams: 02/18/22 04:05 02/18/22 04:05 Labs: Laboratory Results - last 24 hr 02/17/22 21:01: Urine Color Yellow, Urine Clarity Clear, Urine pH 7.0, Ur Specific [place] 1.005, Urine Protein Negative, Urine Glucose (UA) Normal, Urine Ketones Negative, Urine Occult Blood Negative, Urine Nitrite Negative, Urine Bilirubin Negative, Urine Urobilinogen Normal, Ur Leukocyte Esterase Negative, Urine RBC 0 SEEN, Urine WBC 0 SEEN, Ur Squamous Epith Cells 0 SEEN, Urine Bacteria 0 SEEN, Urine Mucus 0 SEEN 02/17/22 21:04: WBC 7.0, RBC 4.15 L, Hgb 11.7 L, Hct 34.9 L, MCV 84.1, MCH 28.2, MCHC 33.5, RDW Std Deviation 42.3, RDW Coeff of Jameel 13.8, Plt Count 366, MPV 8.9, Immature Gran % (Auto) 0.300, Neut % (Auto) 53.6, Lymph % (Auto) 34.5, [place] % (Auto) 10.5 H, Eos % (Auto) 0.7, Baso % (Auto) 0.4, Absolute Neuts (auto) 3.8, Absolute Lymphs (auto) 2.42, Nucleated RBC % 0, Differential Comment SCANNED 02/17/22 21:04: Sodium 138, Potassium 2.9 L, Chloride 99, Carbon Dioxide 34.0 H, Anion Gap 5, BUN 9, Creatinine 0.57, Estim Creat Clear Calc 97.68, Est GFR (MDRD) Af Amer 144, Est GFR (MDRD) Non-Af 119, BUN/Creatinine Ratio 15.8, Glucose 119 H, Calcium 8.3 L, Total Bilirubin 0.50, AST 38 H, ALT 53, Alkaline Phosphatase 132 H, Total Protein 5.7 L, Albumin 2.6 L, Globulin 3.1, Albumin/Globulin Ratio 0.8 L, Lipase 96 02/17/22 21:04: Magnesium 2.7 H 02/18/22 04:05: WBC 5.2, RBC 3.71 L, Hgb 10.4 L, Hct 31.0 L, MCV 83.6, MCH 28.0, MCHC 33.5, RDW Std Deviation 42.5, RDW Coeff of Jameel 13.9, Plt Count 308, MPV 9.0, Immature Gran % (Auto) 0.400, Neut % (Auto) 47.6, Lymph % (Auto) 37.8, [place] % (Auto) 12.5 H, Eos % (Auto) 1.3, Baso % (Auto) 0.4, Absolute Neuts (auto) 2.5, Absolute Lymphs (auto) 1.97, Nucleated RBC % 0, Differential Comment SCANNED, Reactive Lymphocytes 1+ 02/18/22 04:05: Sodium 140, Potassium 3.1 L, Chloride 103, Carbon Dioxide 35.0 H , Anion Gap 2 L, BUN 8, Creatinine 0.39 L, Estim Creat Clear Calc 142.76, Est GFR (MDRD) Af Amer 226, Est GFR (MDRD) Non-Af 187, BUN/Creatinine Ratio 20.7 H, Glucose 91, Calcium 7.9 L Radiography Diagnostic Testing: Radiology Impression Abdomen/Pelvis CT 02/17/22 20:55 IMPRESSION: 1. Significant diffuse colonic fecal material throughout the colon, extending to the rectosigmoid colon. 2. Trace right lower quadrant free fluid. Electronically Signed: Eyad Wilkins MD ([place]) at 23:01 EDT , Physical Exam Const alert and no apparent distress Resp normal respiratory effort, no retractions, no use of accessory muscles and clear to auscultation bilaterally Cardio regular rate, regular rhythm, S1 normal heart sound and S2 normal heart sound GI normal to inspection, nondistended, normoactive bowel sounds, soft to palpation, non-tender and non-distended Neuro Sensorium / Orientation: awake and alert Psych affect normal Assessment & Plan Assessment/Plan (1) Acquired megacolon: (2) Acute hypokalemia: PLAN: 1. diffuse colonic distention * noted diffuse colonic fecal material throughout the colon * etiology: colonic pseudoobstruction v volvulus * GI on consult. * FABIO Anthony Friend. May need flexible sigmoidoscopy. He recommends NGT. Hold on neostigmine at this time. * Continue IVF and NPO. 2. hypokalemia * ongoing * magnesium 2.7 * replace 3. HTN, * likely essential * essential * continue losartan when able to take oral. 4. VTE prophylaxis: LMWH FABIO pt's at bedside. Keep in ICU for now in case needs neostigmine. Charges/Coding Visit Charges Inpatient E&M: 83198 Subs Hosp L2
--- NOTE | 2022-02-18 09:10 | CASEMGMT ---
NEPTALI RODAS Assessment: Face to Face with pt for initial transition planning/care coordination assessment. RN ADRIANNA introduced self and role at [facility], pt voices understanding and consents to assessment. Pt is A/O x4 and answers all questions appropriately at this time. Pt sitting up in the chair in no distress with at bedside. Care providers, pharmacy, and demographics verified/updated. Admitting Dx: acquired megacolon PCP:Cynthia Specialists:Pt denies. Preferred Pharmacy: [facility] Retail Insurance: Self Pay Prescription Benefit: no LW/HPOA: Pt denies having a LW/DPOA and denies need for info regarding AD. LNOK: Juan Goldberg, Living Arrangements: Pt lives with and 8 children in a two story house with 3 steps to enter. Pt reports she is I in ADL's and denies concerns at home. Transportation: Pt hires drivers for transportation. DME/HHC/SNF: Pt has crutches and a cane at home. Pt does not use any AD. Pt denies hx of HHC or SNF stays. Pt states no concerns with going home at time of dc. Pt designates her to discuss dc planning with when he is present at the hospital as they have no phone. Pt does not currently have therapy ordered. Pt is aware that if she starts to feel weak to notify nurse mononitrotoluene operator CM. Pt states no further concerns/needs. CM to follow. Advised pt to ask CM if any further question/concerns/needs arise, voices understanding. Pt Goal: Home Plan: Home
[2022-02-18] MEDS: Losartan Potassium 50 MG Tablet PO (09:24)
--- NOTE | 2022-02-18 11:05 | RAD_ITS ---
STUDY: X-RAY - ABDOMEN/PELVIS REASON FOR EXAM: Female, 51 years old. NGT placement TECHNIQUE: AP supine and decubitus views of the abdomen and pelvis. COMPARISON: None. FINDINGS: The tip of the nasogastric tube is coiled in the body of the stomach. Gaseous distention of the colon. RAD/Abdomen Single View (Portable) IMPRESSION: The tip of the nasogastric tube is coiled in the body of the stomach. Gaseous distention of the colon. Electronically Signed: Joel Mills MD at 12:02 EDT ,
--- NOTE | 2022-02-18 12:00 | PCM.CONS.GEN ---
Assessment & Plan Assessment/Plan (1) Acquired megacolon: PLAN: The differential diagnosis does include a sigmoid stricture secondary to cancer, inflammatory stricture or chronic diverticulitis. I do not think she has Farwell syndrome or chronic intestinal pseudoobstruction. She has no history of inflammatory bowel disease. She should undergo a decompressive colonoscopy. She was explained alternatives, risk, benefits including not withstanding bleeding, infection, sepsis, perforation, need for emergent surgery . Should have an ASA of 1. HPI Consult Data Date of Consult: 02/18/22 HPI Narrative HPI Narrative: KAYCEE NELSON, is a 51 F who presented to the ED on 01/15/2022 with abdominal pain that has been getting progressively worse over a week. Patient states her pain is diffuse across her abdomen. Patient states it is worse with eating. Patient states nothing seems to help with it. Patient admits to some nausea and vomiting. Patient denies any diarrhea, melena, or hematochezia. Patient states she has been constipated. Patient tried enemas at home with no improvement. Patient denies any urinary complaints. Patient denies any fevers or chills. Comprehensive metabolic profile showed a mild hypokalemia of 3.0. Urinalysis does not show any evidence of urinary tract infection or hematuria. CT scan of the abdomen pelvis was obtained. There was a very large amount of fecal material seen throughout the entire colon. There is no evidence of bowel obstruction. This was interpreted by the radiologist and reviewed by myself. Patient was given a soapsuds enema with minimal improvement. Patient was advised of her findings. Patient was instructed to drink plenty of fluids. Patient was given a prescription for magnesium citrate. Patient was also instructed to get hsim-ssg-gooyjeh MiraLAX to take as needed for constipation. Patient was instructed to follow-up with her primary care physician in 5 to 7 days. She comes back into the hospital today with worsening abdominal distention and not had a bowel movement for several days. Her CT scan of the abdomen pelvis in the ED is very large and shows possible megacolon. She denies any recent infections. She has no history of C. difficile. She has no history of ulcerative colitis. Only past medical history is chronic idiopathic constipation in which she does take some bris-svg-njaunaj medicines for. [facility] Medical History Hypertension Home Medications telmisartan 40 mg PO DAILY 02/17/22 [History Last Taken Unknown] Allergy/AdvReac Type Severity Reaction Status Date / Time No Known Allergies Allergy Verified 02/17/22 20:42 Surgical History Hx of cholecystectomy Social History Smoking Status: Never smoker substance use type: does not use ROS Gastrointestinal Gastrointestinal: Reports abdominal pain and bloating Physical Exam Const alert General Appearance: cooperative Orientation / Consciousness: oriented to person HEENT hearing grossly normal bilaterally Head and Scalp: normal to inspection Face and Sinus: face symmetric Nose: external nose normal Mouth: oral and palatal mucosa normal Eyes conjunctivae normal General Eye: normal appearance of both eyes Neck full ROM General: normal visual inspection Lymph Lymphatic: no lymphadenopathy noted Chest inspection of chest normal and palpation of chest normal Chest: symmetrical chest wall rise Resp normal respiratory effort Effort and Inspection: able to speak in complete sentences Cardio regular rate GI non-distended GI Narrative: Severely distended abdomen Percussion: normal to percussion Rectal Exam: deferred Neuro Speech: speech normal Gait (Neuro): normal gait Medical Records Data Medical Nutrition Assessment Dietitian: Malnutrition Criteria Met Start: 02/18/22 10:47 Freq: Status: Active Protocol: Document 02/18/22 10:47 (Rec: 02/18/22 10:47 [id number]) Nutrition Malnutrition Evidence of Malnutrition Exists Yes Malnutrition (moderate): Acute Illness/Injury Evidenced By Suboptimal Energy Intake ( Moderate),Weight Loss ( Moderate) Clinical Problem Acute Disease or Injury Related Malnutrition Etiology moderate, acute malnutrition r /t inadequate energy intake d/ t GI dysfunction Signs/Symptoms as evidenced by estimated PO intake meeting <75% of estimated energy needs >7 days ; mild muscle wasting observed in clavicles, mild loss of body fat in orbital, triceps per physical exam Status Active Problem Recommendation Dietitian Recommendations/Changes recommend advance diet as tolerated to transitional; gradually increase fluids/ fiber as tolerated. Lab / Micro Data Result Diagrams: 02/18/22 04:05 02/18/22 04:05 Labs: Laboratory Results - last 24 hr 02/17/22 21:01: Urine Color Yellow, Urine Clarity Clear, Urine pH 7.0, Ur Specific [place] 1.005, Urine Protein Negative, Urine Glucose (UA) Normal, Urine Ketones Negative, Urine Occult Blood Negative, Urine Nitrite Negative, Urine Bilirubin Negative, Urine Urobilinogen Normal, Ur Leukocyte Esterase Negative, Urine RBC 0 SEEN, Urine WBC 0 SEEN, Ur Squamous Epith Cells 0 SEEN, Urine Bacteria 0 SEEN, Urine Mucus 0 SEEN 02/17/22 21:04: WBC 7.0, RBC 4.15 L, Hgb 11.7 L, Hct 34.9 L, MCV 84.1, MCH 28.2, MCHC 33.5, RDW Std Deviation 42.3, RDW Coeff of Jameel 13.8, Plt Count 366, MPV 8.9, Immature Gran % (Auto) 0.300, Neut % (Auto) 53.6, Lymph % (Auto) 34.5, [place] % (Auto) 10.5 H, Eos % (Auto) 0.7, Baso % (Auto) 0.4, Absolute Neuts (auto) 3.8, Absolute Lymphs (auto) 2.42, Nucleated RBC % 0, Differential Comment SCANNED 02/17/22 21:04: Sodium 138, Potassium 2.9 L, Chloride 99, Carbon Dioxide 34.0 H, Anion Gap 5, BUN 9, Creatinine 0.57, Estim Creat Clear Calc 97.68, Est GFR (MDRD) Af Amer 144, Est GFR (MDRD) Non-Af 119, BUN/Creatinine Ratio 15.8, Glucose 119 H, Calcium 8.3 L, Total Bilirubin 0.50, AST 38 H, ALT 53, Alkaline Phosphatase 132 H, Total Protein 5.7 L, Albumin 2.6 L, Globulin 3.1, Albumin/Globulin Ratio 0.8 L, Lipase 96 02/17/22 21:04: Magnesium 2.7 H 02/18/22 04:05: WBC 5.2, RBC 3.71 L, Hgb 10.4 L, Hct 31.0 L, MCV 83.6, MCH 28.0, MCHC 33.5, RDW Std Deviation 42.5, RDW Coeff of Jameel 13.9, Plt Count 308, MPV 9.0, Immature Gran % (Auto) 0.400, Neut % (Auto) 47.6, Lymph % (Auto) 37.8, [place] % (Auto) 12.5 H, Eos % (Auto) 1.3, Baso % (Auto) 0.4, Absolute Neuts (auto) 2.5, Absolute Lymphs (auto) 1.97, Nucleated RBC % 0, Differential Comment SCANNED, Reactive Lymphocytes 1+ 02/18/22 04:05: Sodium 140, Potassium 3.1 L, Chloride 103, Carbon Dioxide 35.0 H, Anion Gap 2 L, BUN 8, Creatinine 0.39 L, Estim Creat Clear Calc 142.76, Est GFR (MDRD) Af Amer 226, Est GFR (MDRD) Non-Af 187, BUN/Creatinine Ratio 20.7 H, Glucose 91, Calcium 7.9 L Micro: Microbiology 02/18/22 15:20 Nasal Secretion SARS-CoV-2 Antigen (Rapid) - Final Radiology Impression Abdomen/Pelvis CT 02/17/22 20:55 IMPRESSION: 1. Significant diffuse colonic fecal material throughout the colon, extending to the rectosigmoid colon. 2. Trace right lower quadrant free fluid. Electronically Signed: Eyad Wilkins MD ([place]) at 23:01 EDT , KUB X-Ray 02/18/22 11:05 IMPRESSION: The tip of the nasogastric tube is coiled in the body of the stomach. Gaseous distention of the colon. Electronically Signed: Joel Mills MD at 12:02 EDT , Charges/Coding Visit Charges Inpatient E&M: 03515 Init Hosp L2
--- NOTE | 2022-02-18 16:15 | NURSING ---
Patient left unit to endo for colonoscopy
--- NOTE | 2022-02-18 20:06 | OP.CCLET_ITS ---
07/10/2022 Jeffrey Marie Re : Colonoscopy procedure for Gisela Goldberg Dear Cynthia This procedure was performed on Friday, February 18, 2022. My impressions and recommendations are as follows: Impressions : - Preparation of the colon was poor. - Hemorrhoids found on perianal exam. - Stricture in the sigmoid colon. Dilated. - Stool in the entire examined colon. - No specimens collected. Recommendations : - Return patient to [facility] for [facility] care. - NPO. - Continue present medications. - Repeat colonoscopy in 2 days to evaluate the response to therapy. My findings are described in the full procedure note, which is enclosed. If I can be of further assistance, please feel free to contact me at . Sincerely, Malcom Pathak, 02/18/2022 8:06:24 PM This report has been signed electronically.
--- NOTE | 2022-02-18 20:06 | OP.COLON_ITS ---
Patient Name: Gisela Goldberg Procedure Date: 02/18/2022 6:35 PM Date of : 1970 Age: 51 Procedure: Colonoscopy Indications: Therapeutic procedure Providers: Malcom Pathak DO Medicines: Monitored Anesthesia Care Patient Profile: This is a 51 year old female. Refer to note in patient chart for documentation of history and physical. Last Colonoscopy: none. The patient's first colonoscopy is today. Complications: No immediate complications. Procedure: Pre-Anesthesia Assessment: - Prior to the procedure, a History and Physical was performed, and patient medications and allergies were reviewed. The risks and benefits of the procedure and the sedation options and risks were discussed with the patient. All questions were answered and informed consent was obtained. Patient identification and proposed procedure were verified by the physician in the pre-procedure area. Mental Status Examination: alert and oriented. Airway Examination: normal oropharyngeal airway and neck mobility. Respiratory Examination: clear to auscultation. CV Examination: normal. Prophylactic Antibiotics: The patient does not require prophylactic antibiotics. Prior Anticoagulants: The patient has taken no previous anticoagulant or antiplatelet agents. After reviewing the risks and benefits, the patient was deemed in satisfactory condition to undergo the procedure. The anesthesia plan was to use moderate sedation / analgesia (conscious sedation). Immediately prior to administration of medications, the patient was re-assessed for adequacy to receive sedatives. The heart rate, respiratory rate, oxygen saturations, blood pressure, adequacy of pulmonary ventilation, and response to care were monitored throughout the procedure. The physical status of the patient was re-assessed after the procedure. After I obtained informed consent, the scope was passed under direct vision. Throughout the procedure, the patient's blood pressure, pulse, and oxygen saturations were monitored continuously. The colonoscope was introduced through the anus and advanced to the cecum, identified by appendiceal orifice and ileocecal valve. The colonoscopy was performed with moderate difficulty due to bowel stenosis. The patient tolerated the procedure well. The quality of the bowel preparation was poor. Scope In: 6:59:11 PM Scope Out: 7:35:26 PM Total Procedure Duration Time 0 hours 36 minutes 15 seconds Findings: Hemorrhoids were found on perianal exam. An indeterminant stricture severe stenosis measuring 3 cm (in length) was found in the sigmoid colon and was traversed after dilation. A TTS dilator was passed through the scope. Dilation with an 18-19-20 mm colonic balloon dilator was performed. The dilation site was examined and showed complete resolution of luminal narrowing. Estimated blood loss was minimal. A large amount of stool was found in the entire colon, precluding visualization. A colonic decompression tube was placed. Impression: - Preparation of the colon was poor. - Hemorrhoids found on perianal exam. - Stricture in the sigmoid colon. Dilated. - Stool in the entire examined colon. - No specimens collected. Recommendation: - [facility]. - NPO. - Continue present medications. - Repeat colonoscopy in 2 days to evaluate the response to therapy. Procedure Code(s): --- Professional --- 29415, Colonoscopy, flexible; with decompression (for pathologic distention) (eg, volvulus, megacolon), including placement of decompression tube, when performed 15779, Colonoscopy, flexible; with transendoscopic balloon dilation CPT copyright 2017 [employer]. All rights reserved. The codes documented in this report are preliminary and upon health informatics advisor review may be revised to meet current compliance requirements. Malcom Pathak DO 02/18/2022 8:06:24 PM This report has been signed electronically. Number of Addenda: 1 Note Initiated On: 02/18/2022 6:35 PM Addendum Number: 1 Addendum Date: 07/10/2022 6:23:13 AM MAC was used as sedation for this procedure. Malcom Pathak DO 07/10/2022 6:23:17 AM This report has been signed electronically.
[2022-02-18] MEDS: 0.9% Saline Lock 10 ML Syringe IV (21:33)
[2022-02-18] MEDS: Morphine 2 MG/ML Syringe IV (21:34)
[2022-02-18] MEDS: Ondansetron 4 MG/2 ML Vial IV (21:34)
[2022-02-19] VITALS (15 sets, daily range): BP systolic 118–145; BP diastolic 90–109; PULSE 93–115; RESP 15–28; TEMP 36–36.7; O2SAT 94–100
[2022-02-19] MEDS: Morphine 2 MG/ML Syringe IV ×3 (01:49→14:04)
[2022-02-19 03:47] LABS: Absolute Lymphocyte Count 2.86 X10^3/uL (0.83-4.51); Absolute Neutrophil Count 5.5 X10^3/uL (2.0-7.7); Basophil# 0.04 X10^3/uL; Basophil% 0.4 % (0-1); Eosinophil# 0.05 X10^3/uL; Eosinophils% 0.5 % (0-5); Hematocrit 37.1 % (37-47); Hemoglobin 12.4 g/dL (12.0-15.0); Lymphocyte # 2.86 X10^3/ul (0.83-4.51); Lymphocyte % 30.8 % (19-41); Mean Corp Hgb Conc 33.4 g/dL (32-36); Mean Corpuscular Hgb 28.4 pg (27.0-32.0); Mean Corpuscular Volume 84.9 fL (81-99); Mean Platelet Vol. 9.1 fl (6.2-12.0); Monocyte# 0.79 X10^3/uL; Monocyte% 8.5 % (0-10); NRBC Flagged by Analyzer 0 % (0-5); Neutrophil # 5.53 X10^3/uL (2.7-7.7); Neutrophil % 59.6 % (47-70); Platelet Count 320 K/mm3 (150-450); RBC Distribution Width CV 14.4 % (11.6-14.6); RBC Distribution Width SD 44.7 fl (35.1-43.9); Red Blood Count 4.37 M/mm3 (4.2-5.4); White Blood Count 9.3 K/mm3 (4.4-11.0)
[2022-02-19 04:05] LABS: Anion Gap 9 (5-15); BUN 9 mg/dL (7-18); BUN/Creat Ratio 29.9 RATIO (10-20); Calcium,Total 8.3 mg/dL (8.5-10.1); Chloride 106 mmol/L (98-107); EST Glomerular Filtration Rate 249 mL/min (>60); Est Glom Filt Rate - Afr Amer 301 mL/min (>60); Estimated Creatinine Clearance 177.44 ml/min; Glucose 63 mg/dL (74-106); Potassium 3.2 mmol/L (3.5-5.1); Sodium Level 143 mmol/L (136-145)
[2022-02-19] MEDS: Potassium Chloride 10mEq/100mL 10 MEQ/100 ML IV.SOLN. 100 MEQ IV BOLUS ×4 (05:51→13:01)
[2022-02-19] MEDS: Dextrose 10%-Water 250 ML 999 ML IV (05:51)
[2022-02-19] MEDS: Potassium Chloride 40 MEQ in Dext 5%-0.45% NS 1,000 ML 75 MEQ IV ×2 (05:51→20:04)
[2022-02-19 06:40] LABS: Bedside Glucose 112 mg/dL (74-106)
--- NOTE | 2022-02-19 07:24 | PN.HOSP_ITS ---
Subjective Subjective Colonic stricture noted on colonoscopy yesterday. Rectal decompression started. Objective Data Objective Data Vital Signs: Vital Signs Temp Pulse Resp BP Pulse Ox 36.2 C L 94 23 H 137/97 H 96 02/19/22 04:00 02/19/22 07:00 02/19/22 07:00 02/19/22 07:00 02/19/22 07:00 Oxygen Flow Rate (L/min) 1 Oxygen Delivery Method Room Air Weight: 65.4 kg Body Mass Index (BMI) 25.7 Intake & Output: Intake and Output for Last 24 Hours 02/17/22 02/18/22 02/19/22 23:59 23:59 23:59 Intake Total 2721.25 / 3016.25 983.75 / 983.75 Output Total 0 / 0 Balance 2721.25 / 3016.25 958.75 / 958.75 Medical Nutrition Assessment Dietitian: Malnutrition Criteria Met Start: 02/18/22 10:47 Freq: Status: Active Protocol: Document 02/18/22 10:47 AG (Rec: 02/18/22 10:47 [id number]) Nutrition Malnutrition Evidence of Malnutrition Exists Yes Malnutrition (moderate): Acute Illness/Injury Evidenced By Suboptimal Energy Intake ( Moderate),Weight Loss ( Moderate) Clinical Problem Acute Disease or Injury Related Malnutrition Etiology moderate, acute malnutrition r /t inadequate energy intake d/ t GI dysfunction Signs/Symptoms as evidenced by estimated PO intake meeting <75% of estimated energy needs >7 days ; mild muscle wasting observed in clavicles, mild loss of body fat in orbital, triceps per physical exam Status Active Problem Recommendation Dietitian Recommendations/Changes recommend advance diet as tolerated to transitional; gradually increase fluids/ fiber as tolerated. Lab / Micro Data Result Diagrams: 02/19/22 03:30 02/19/22 03:30 Labs: Laboratory Results - last 24 hr 02/19/22 03:30: WBC 9.3, RBC 4.37, Hgb 12.4, Hct 37.1, MCV 84.9, MCH 28.4, MCHC 33.4, RDW Std Deviation 44.7 H, RDW Coeff of Jameel 14.4, Plt Count 320, MPV 9.1, Immature Gran % (Auto) 0.200, Neut % (Auto) 59.6, Lymph % (Auto) 30.8, Overton % (Auto) 8.5, Eos % (Auto) 0.5, Baso % (Auto) 0.4, Absolute Neuts (auto) 5.5, Absolute Lymphs (auto) 2.86, Nucleated RBC % 0 02/19/22 03:30: Sodium 143, Potassium 3.2 L, Chloride 106, Carbon Dioxide 28.0, Anion Gap 9, BUN 9, Creatinine 0.30 L, Estim Creat Clear Calc 177.44, Est GFR (MDRD) Af Amer 301, Est GFR (MDRD) Non-Af 249, BUN/Creatinine Ratio 29.9 H, Glucose 63 L, Calcium 8.3 L 02/19/22 06:26: POC Glucose 112 H Micro: Microbiology 02/18/22 15:20 Nasal Secretion SARS-CoV-2 Antigen (Rapid) - Final Radiography Diagnostic Testing: Radiology Impression KUB X-Ray 02/18/22 11:05 IMPRESSION: The tip of the nasogastric tube is coiled in the body of the stomach. Gaseous distention of the colon. Electronically Signed: Joel Mills MD at 12:02 EDT , Assessment & Plan Assessment/Plan (1) Acquired megacolon: (2) Acute hypokalemia: (3) Rectal stricture: PLAN: 1. rectal stricture causing diffuse colonic distention * noted diffuse colonic fecal material throughout the colon * FABIO Pathak. He initiated rectal decompression. He is unsure if this due to cancer or other etiology at present. He spoke with Dr. Leigh as patient may require collectomy. Since no pseudoobstruction, no neostigmine is needed. * Continue IVF and NPO. 2. hypokalemia * ongoing * magnesium 2.7 * replace 3. HTN, * likely essential * essential * resume losartan when able to take oral. 4. VTE prophylaxis: LMWH TF to GMF.
--- NOTE | 2022-02-19 11:13 | PCM.HP.STD ---
[facility] - General General Date of Admission: 02/17/22 Chief Complaint: Abdominal distention, pain HPI Narrative KAYCEE NELSON, is a 51 F who presents to [facility] with complaints of severe constipation, abdominal bloating, and abdominal pain. She was evaluated by gastroenterology out of concern for possible Fernanda's, but patient did not respond to medical therapies and was taken for unprepped colonoscopy yesterday. During this procedure, she was found to have an approximately 3 cm stricture of the sigmoid colon. A consult was placed to surgery during this procedure for consideration of partial colectomy. Patient presents a lifelong history of constipation, but this has been particularly worse over the last 2 years. She states that she has normally been able to achieve at least 1 small runny bowel movement today taking a number of promotility agents. Unfortunately, this discomfort has led to a decrease in her nutrition and a weight loss of approximately 30 pounds over this time. She denies any personal history of other GI diagnoses. She also denies any family history of colon cancer, inflammatory bowel disease, or diverticulitis. [facility] Medical History Hypertension Home Medications telmisartan 40 mg PO DAILY 02/17/22 [History Last Taken Unknown] Allergy/AdvReac Type Severity Reaction Status Date / Time No Known Allergies Allergy Verified 02/17/22 20:42 Surgical History Hx of cholecystectomy Social History Smoking Status: Never smoker substance use type: does not use Vital Signs Vital Signs Vital Signs: 02/18/22 12:00 02/18/22 13:00 02/18/22 14:00 Temperature 97.9 F Temperature Source Temporal Pulse Rate 88 84 83 Pulse Strength Respiratory Rate 20 H 25 H 28 H Respiratory Effort Normal Non-Labored Respiratory Depth Normal Respiratory Pattern Normal Blood Pressure 134/98 H Blood Pressure [BP] 147/98 H 140/99 H Blood Pressure Mean 110 Blood Pressure Mean [BP] 114 112 Blood Pressure Source Monitor Blood Pressure Source [BP] Monitor Monitor Blood Pressure Position Sitting Blood Pressure Position [BP] Sitting Sitting Blood Pressure Location Right Arm Blood Pressure Location [BP] Right Arm Right Arm Baseline BP Pulse Ox 97 98 98 Oxygen Delivery Method Room Air Room Air Room Air Oxygen Flow Rate (L/min) 02/18/22 15:00 02/18/22 15:47 02/18/22 16:00 Temperature 97.0 F L Temperature Source Temporal Pulse Rate 82 93 91 Pulse Strength Respiratory Rate 21 H 23 H 24 H Respiratory Effort Normal Non-Labored Respiratory Depth Normal Respiratory Pattern Normal Blood Pressure 141/102 H Blood Pressure [BP] 151/101 H 150/105 H Blood Pressure Mean 115 Blood Pressure Mean [BP] 117 120 Blood Pressure Source Monitor Blood Pressure Source [BP] Monitor Monitor Blood Pressure Position Sitting Blood Pressure Position [BP] Sitting Semi-Fowlers Blood Pressure Location Right Arm Blood Pressure Location [BP] Right Arm Right Arm Baseline BP Pulse Ox 98 94 99 Oxygen Delivery Method Room Air Room Air Room Air Oxygen Flow Rate (L/min) 02/18/22 19:58 02/18/22 20:05 02/18/22 20:10 Temperature 97.5 F L Temperature Source Temporal Pulse Rate 97 93 94 Pulse Strength Respiratory Rate 16 16 16 Respiratory Effort Respiratory Depth Respiratory Pattern Normal Blood Pressure 140/105 H 142/101 H 144/105 H Blood Pressure [BP] Blood Pressure Mean 116 114 118 Blood Pressure Mean [BP] Blood Pressure Source Monitor Monitor Monitor Blood Pressure Source [BP] Blood Pressure Position Semi-Fowlers Semi-Fowlers Semi-Fowlers Blood Pressure Position [BP] Blood Pressure Location Right Arm Right Arm Right Arm Blood Pressure Location [BP] Baseline BP 141/102 141/102 141/102 Pulse Ox 96 96 97 Oxygen Delivery Method Room Air Room Air Room Air Oxygen Flow Rate (L/min) 02/18/22 20:15 02/18/22 20:35 02/18/22 20:40 Temperature 97.3 F L 97.7 F L Temperature Source Temporal Temporal Pulse Rate 92 93 104 H Pulse Strength Respiratory Rate 16 21 H Respiratory Effort Normal Non-Labored Respiratory Depth Normal Respiratory Pattern Normal Blood Pressure 137/108 H Blood Pressure [BP] 138/110 H Blood Pressure Mean 117 Blood Pressure Mean [BP] 119 Blood Pressure Source Monitor Blood Pressure Source [BP] Monitor Blood Pressure Position Semi-Fowlers Blood Pressure Position [BP] Semi-Fowlers Blood Pressure Location Right Arm Blood Pressure Location [BP] Right Arm Baseline BP 141/102 Pulse Ox 97 94 Oxygen Delivery Method Room Air Room Air Oxygen Flow Rate (L/min) 02/18/22 21:00 02/18/22 21:45 02/18/22 22:00 Temperature Temperature Source Pulse Rate 101 H 91 Pulse Strength Normal (2+) Respiratory Rate 15 19 H Respiratory Effort Respiratory Depth Respiratory Pattern Blood Pressure Blood Pressure [BP] 152/101 H 137/105 H Blood Pressure Mean Blood Pressure Mean [BP] 118 115 Blood Pressure Source Blood Pressure Source [BP] Monitor Monitor Blood Pressure Position Blood Pressure Position [BP] Semi-Fowlers Semi-Fowlers Blood Pressure Location Blood Pressure Location [BP] Right Arm Right Arm Baseline BP Pulse Ox 99 86 100 Oxygen Delivery Method Room Air Room Air Nasal Cannula Oxygen Flow Rate (L/min) 2 02/18/22 23:00 02/19/22 00:00 02/19/22 01:00 Temperature 96.9 F L Temperature Source Temporal Pulse Rate 94 94 97 Pulse Strength Respiratory Rate 19 H 20 H 21 H Respiratory Effort Normal Non-Labored Respiratory Depth Normal Respiratory Pattern Normal Blood Pressure 118/94 H Blood Pressure [BP] 106/91 H 118/94 H 133/101 H Blood Pressure Mean 102 Blood Pressure Mean [BP] 96 102 111 Blood Pressure Source Monitor Blood Pressure Source [BP] Monitor Monitor Monitor Blood Pressure Position Semi-Fowlers Blood Pressure Position [BP] Semi-Fowlers Semi-Fowlers Semi-Fowlers Blood Pressure Location Right Arm Blood Pressure Location [BP] Right Arm Right Arm Right Arm Baseline BP Pulse Ox 99 99 96 Oxygen Delivery Method Nasal Cannula Nasal Cannula Nasal Cannula Oxygen Flow Rate (L/min) 2 1 1 02/19/22 02:00 02/19/22 03:00 02/19/22 04:00 Temperature 97.1 F L Temperature Source Temporal Pulse Rate 95 99 102 H Pulse Strength Respiratory Rate 22 H 15 28 H Respiratory Effort Normal Non-Labored Respiratory Depth Normal Respiratory Pattern Normal Blood Pressure Blood Pressure [BP] 122/90 H 139/109 H 145/106 H Blood Pressure Mean Blood Pressure Mean [BP] 100 119 119 Blood Pressure Source Blood Pressure Source [BP] Monitor Monitor Monitor Blood Pressure Position Blood Pressure Position [BP] Semi-Fowlers Semi-Fowlers Semi-Fowlers Blood Pressure Location Blood Pressure Location [BP] Right Arm Right Arm Right Arm Baseline BP Pulse Ox 96 97 96 Oxygen Delivery Method Room Air Room Air Room Air Oxygen Flow Rate (L/min) 02/19/22 05:00 02/19/22 06:00 02/19/22 07:00 Temperature Temperature Source Pulse Rate 95 95 94 Pulse Strength Respiratory Rate 19 H 21 H 23 H Respiratory Effort Respiratory Depth Respiratory Pattern Blood Pressure Blood Pressure [BP] 136/100 H 135/100 H 137/97 H Blood Pressure Mean Blood Pressure Mean [BP] 112 111 110 Blood Pressure Source Blood Pressure Source [BP] Monitor Monitor Monitor Blood Pressure Position Blood Pressure Position [BP] Semi-Fowlers Semi-Fowlers Semi-Fowlers Blood Pressure Location Blood Pressure Location [BP] Right Arm Right Arm Right Arm Baseline BP Pulse Ox 95 96 96 Oxygen Delivery Method Room Air Room Air Room Air Oxygen Flow Rate (L/min) 02/19/22 08:00 02/19/22 08:49 02/19/22 09:58 Temperature 96.8 F L 97.3 F L Temperature Source Temporal Temporal Pulse Rate 93 100 Pulse Strength Normal (2+) Respiratory Rate 26 H 20 H Respiratory Effort Normal Non-Labored Respiratory Depth Normal Respiratory Pattern Tachypnea Blood Pressure 128/99 H 145/100 H Blood Pressure [BP] Blood Pressure Mean 108 115 Blood Pressure Mean [BP] Blood Pressure Source Monitor Monitor Blood Pressure Source [BP] Blood Pressure Position Semi-Fowlers Sitting Blood Pressure Position [BP] Blood Pressure Location Right Arm Left Arm Blood Pressure Location [BP] Baseline BP Pulse Ox 94 95 Oxygen Delivery Method Room Air Room Air Oxygen Flow Rate (L/min) Weight Weight: 144 lb 2.917 oz Body Mass Index (BMI) 25.7 Results Medical Records Data Medical Nutrition Assessment Dietitian: Malnutrition Criteria Met Start: 02/18/22 10:47 Freq: Status: Active Protocol: Document 02/19/22 09:31 AG (Rec: 02/19/22 09:32 [id number]) Nutrition Malnutrition Evidence of Malnutrition Exists Yes Malnutrition (moderate): Acute Illness/Injury Evidenced By Suboptimal Energy Intake ( Moderate),Weight Loss ( Moderate) Clinical Problem Acute Disease or Injury Related Malnutrition Etiology moderate, acute malnutrition r /t inadequate energy intake d/ t GI dysfunction Signs/Symptoms as evidenced by estimated PO intake meeting <75% of estimated energy needs >7 days ; mild muscle wasting observed in clavicles, mild loss of body fat in orbital, triceps per physical exam Status Active Problem Recommendation Dietitian Recommendations/Changes recommend advance diet as tolerated to transitional; gradually increase fluids/ fiber as tolerated. Lab / Micro Data Result Diagrams: 02/19/22 03:30 02/19/22 03:30 Labs: Laboratory Results - last 24 hr 02/19/22 03:30: WBC 9.3, RBC 4.37, Hgb 12.4, Hct 37.1, MCV 84.9, MCH 28.4, MCHC 33.4, RDW Std Deviation 44.7 H, RDW Coeff of Jameel 14.4, Plt Count 320, MPV 9.1, Immature Gran % (Auto) 0.200, Neut % (Auto) 59.6, Lymph % (Auto) 30.8, Anderson % (Auto) 8.5, Eos % (Auto) 0.5, Baso % (Auto) 0.4, Absolute Neuts (auto) 5.5, Absolute Lymphs (auto) 2.86, Nucleated RBC % 0 02/19/22 03:30: Sodium 143, Potassium 3.2 L, Chloride 106, Carbon Dioxide 28.0, Anion Gap 9, BUN 9, Creatinine 0.30 L, Estim Creat Clear Calc 177.44, Est GFR (MDRD) Af Amer 301, Est GFR (MDRD) Non-Af 249, BUN/Creatinine Ratio 29.9 H, Glucose 63 L, Calcium 8.3 L 02/19/22 06:26: POC Glucose 112 H Micro: Microbiology 02/18/22 15:20 Nasal Secretion SARS-CoV-2 Antigen (Rapid) - Final Radiology Impression KUB X-Ray 02/18/22 11:05 IMPRESSION: The tip of the nasogastric tube is coiled in the body of the stomach. Gaseous distention of the colon. Electronically Signed: Joel Mills MD at 12:02 EDT ,
--- NOTE | 2022-02-19 11:39 | CON.PCM.SX_ITS ---
Assessment & Plan Assessment/Plan (1) Acquired megacolon: (2) Colonic stricture: PLAN: Patient is a 51-year-old female who was admitted with signs and symptoms of megacolon felt to be secondary to possible Fernanda's versus distal colonic obstruction. She was taken for emergent colonoscopy yesterday and found to have a distal colonic stricture. Surgery was consulted for consideration of possible resection. Unfortunately, given the inability to bowel prep the patient, little else was seen during the exam aside from the stricture. Following dilation of the stricture, patient had profuse diarrhea. She reports that she feels much better today. On exam, patient has persistent abdominal distention, but denies any significant tenderness. Given her age, history of unintentional weight loss, and unexplained stricture, I like to rule out a neoplastic etiology. I have woken with GI, and the plan will be to allow patient further colonic decompression before initiating a bowel prep and hopefully completing a full colonoscopy. Tentative plan would be to perform this investigation with biopsies of the strictured area and possible stent placement. Given the patient's premorbid malnutrition, it would be ideal to work to improve this issue before a bowel resection is undertaken. With these objectives, it may be best to undertake this definitive management on an outpatient basis. Plan has been discussed with patient as well and she is in agreement but wishes to have a discussion to include her . HPI Consult Data Date of Consult: 02/19/22 HPI Narrative HPI Narrative: KAYCEE NELSON, is a 51 F who presents to [facility] with complaints of severe constipation, abdominal bloating, and abdominal pain. She was evaluated by gastroenterology out of concern for possible Dundas's, but patient did not respond to medical therapies and was taken for unprepped colonoscopy yesterday. During this procedure, she was found to have an approximately 3 cm stricture of the sigmoid colon. A consult was placed to surgery during this procedure for consideration of partial colectomy. Patient presents a lifelong history of constipation, but this has been particularly worse over the last 2 years. She states that she has normally been able to achieve at least 1 small runny bowel movement today taking a number of promotility agents. Unfortunately, this discomfort has led to a decrease in her nutrition and a weight loss of approximately 30 pounds over this time. She denies any personal history of other GI diagnoses. She also denies any family history of colon cancer, inflammatory bowel disease, or diverticulitis. Patient's prior abdominal surgical history includes laparoscopic cholecystectomy. Additional pertinent history includes 10 childbirths. [facility] Medical History Hypertension Home Medications telmisartan 40 mg PO DAILY 02/17/22 [History Last Taken Unknown] Allergy/AdvReac Type Severity Reaction Status Date / Time No Known Allergies Allergy Verified 02/17/22 20:42 Surgical History Hx of cholecystectomy Social History Smoking Status: Never smoker substance use type: does not use Physical Exam Const alert, oriented x3 and no apparent distress HEENT HEENT Narrative: Nasogastric tube in place Resp normal respiratory effort GI GI Narrative: Distended, thin abdominal wall, no obvious herniation, but there is some eventration of the rectus muscles. It is possible to palpate patient's abdominal viscera through her abdominal wall. She has no tenderness with palpation. She is soft. Medical Records Data Medical Nutrition Assessment Dietitian: Malnutrition Criteria Met Start: 02/18/22 10:47 Freq: Status: Active Protocol: Document 02/19/22 09:31 (Rec: 02/19/22 09:32 [id number]) Nutrition Malnutrition Evidence of Malnutrition Exists Yes Malnutrition (moderate): Acute Illness/Injury Evidenced By Suboptimal Energy Intake ( Moderate),Weight Loss ( Moderate) Clinical Problem Acute Disease or Injury Related Malnutrition Etiology moderate, acute malnutrition r /t inadequate energy intake d/ t GI dysfunction Signs/Symptoms as evidenced by estimated PO intake meeting <75% of estimated energy needs >7 days ; mild muscle wasting observed in clavicles, mild loss of body fat in orbital, triceps per physical exam Status Active Problem Recommendation Dietitian Recommendations/Changes recommend advance diet as tolerated to transitional; gradually increase fluids/ fiber as tolerated. Lab / Micro Data Result Diagrams: 02/19/22 03:30 02/19/22 03:30 Labs: Laboratory Results - last 24 hr 02/19/22 03:30: WBC 9.3, RBC 4.37, Hgb 12.4, Hct 37.1, MCV 84.9, MCH 28.4, MCHC 33.4, RDW Std Deviation 44.7 H, RDW Coeff of Jameel 14.4, Plt Count 320, MPV 9.1, Immature Gran % (Auto) 0.200, Neut % (Auto) 59.6, Lymph % (Auto) 30.8, Mcpherson % (Auto) 8.5, Eos % (Auto) 0.5, Baso % (Auto) 0.4, Absolute Neuts (auto) 5.5, Absolute Lymphs (auto) 2.86, Nucleated RBC % 0 02/19/22 03:30: Sodium 143, Potassium 3.2 L, Chloride 106, Carbon Dioxide 28.0, Anion Gap 9, BUN 9, Creatinine 0.30 L, Estim Creat Clear Calc 177.44, Est GFR (MDRD) Af Amer 301, Est GFR (MDRD) Non-Af 249, BUN/Creatinine Ratio 29.9 H, Glucose 63 L, Calcium 8.3 L 02/19/22 06:26: POC Glucose 112 H Micro: Microbiology 02/18/22 15:20 Nasal Secretion SARS-CoV-2 Antigen (Rapid) - Final Radiology Impression KUB X-Ray 02/18/22 11:05 IMPRESSION: The tip of the nasogastric tube is coiled in the body of the stomach. Gaseous distention of the colon. Electronically Signed: Joel Mills MD at 12:02 EDT , Charges/Coding Visit Charges Inpatient E&M: 08497 Init Hosp L2
--- NOTE | 2022-02-19 11:52 | PCM.PN.HOSP ---
Documented by User: Chico JOSE 02/19/22 12:23 Subjective Subjective Patient is a 51-year-old female resting in a chair with NG tube inserted, alert and orient x3. Patient reports slight improvement in her distention, although distention is still pronounced. Does not appear in acute distress. Objective Data Objective Data Vital Signs: Vital Signs Temp Pulse Resp BP Pulse Ox 97.3 F L 100 20 H 145/100 H 95 02/19/22 09:58 02/19/22 09:58 02/19/22 09:58 02/19/22 09:58 02/19/22 09:58 Oxygen Flow Rate (L/min) 1 Oxygen Delivery Method Room Air Weight: 144 lb 2.917 oz Body Mass Index (BMI) 25.7 Intake & Output: Intake and Output for Last 24 Hours 02/17/22 02/18/22 02/19/22 23:59 23:59 23:59 Intake Total 2721.25 / 3016.25 1183.75 / 1183.75 Output Total 0 / 0 Balance 2721.25 / 3016.25 1158.75 / 1158.75 Medical Nutrition Assessment Dietitian: Malnutrition Criteria Met Start: 02/18/22 10:47 Freq: Status: Active Protocol: Document 02/19/22 09:31 AG (Rec: 02/19/22 09:32 [id number]) Nutrition Malnutrition Evidence of Malnutrition Exists Yes Malnutrition (moderate): Acute Illness/Injury Evidenced By Suboptimal Energy Intake ( Moderate),Weight Loss ( Moderate) Clinical Problem Acute Disease or Injury Related Malnutrition Etiology moderate, acute malnutrition r /t inadequate energy intake d/ t GI dysfunction Signs/Symptoms as evidenced by estimated PO intake meeting <75% of estimated energy needs >7 days ; mild muscle wasting observed in clavicles, mild loss of body fat in orbital, triceps per physical exam Status Active Problem Recommendation Dietitian Recommendations/Changes recommend advance diet as tolerated to transitional; gradually increase fluids/ fiber as tolerated. Lab / Micro Data Result Diagrams: 02/19/22 03:30 02/19/22 03:30 Labs: Laboratory Results - last 24 hr 02/19/22 03:30: WBC 9.3, RBC 4.37, Hgb 12.4, Hct 37.1, MCV 84.9, MCH 28.4, MCHC 33.4, RDW Std Deviation 44.7 H, RDW Coeff of Jameel 14.4, Plt Count 320, MPV 9.1, Immature Gran % (Auto) 0.200, Neut % (Auto) 59.6, Lymph % (Auto) 30.8, [place] % (Auto) 8.5, Eos % (Auto) 0.5, Baso % (Auto) 0.4, Absolute Neuts (auto) 5.5, Absolute Lymphs (auto) 2.86, Nucleated RBC % 0 02/19/22 03:30: Sodium 143, Potassium 3.2 L, Chloride 106, Carbon Dioxide 28.0, Anion Gap 9, BUN 9, Creatinine 0.30 L, Estim Creat Clear Calc 177.44, Est GFR (MDRD) Af Amer 301, Est GFR (MDRD) Non-Af 249, BUN/Creatinine Ratio 29.9 H, Glucose 63 L, Calcium 8.3 L 02/19/22 06:26: POC Glucose 112 H Micro: Microbiology 02/18/22 15:20 Nasal Secretion SARS-CoV-2 Antigen (Rapid) - Final Radiography Diagnostic Testing: Radiology Impression KUB X-Ray 02/18/22 11:05 IMPRESSION: The tip of the nasogastric tube is coiled in the body of the stomach. Gaseous distention of the colon. Electronically Signed: Joel Mills MD at 12:02 EDT , Physical Exam Const alert, oriented x3 and no apparent distress HEENT head/scalp atraumatic HEENT Narrative: NG tube inserted Head and Scalp: normocephalic Eyes PERRL, EOMs intact bilaterally and conjunctivae normal Neck no lymphadenopathy, supple and no JVD Resp normal air movement and no retractions Effort and Inspection: tachypneic and labored Cardio regular rate, regular rhythm and no JVD GI Inspection: abdominal distention Auscultation: absent bowel sounds Palpation: firm Extremity normal to inspection, full ROM and no clubbing, cyanosis or edema Skin no rashes or lesions noted, no wounds and skin turgor normal Neuro CN's II-XII intact bilaterally Psych affect normal Assessment & Plan Assessment/Plan (1) Acquired megacolon: (2) Acute hypokalemia: PLAN: Day 3 Discharge planning: To be determined. 1) diffuse colonic distention GI and general surgery are consulted. Patient was noted to have 3 cm stricture in the sigmoid colon on colonoscopy. Consult placed for general surgery for possible colectomy. Continue IV fluids and maintain n.p.o. status at this time. 2) hypokalemia Potassium currently 3.2, replaced, continue to monitor. 3) HTN Hold losartan due to n.p.o. status, IV metoprolol ordered with hold parameters. DVT prophylaxis - Lovenox. Patient seen by Chico Charles PA-C, under the supervision of Dr. Lennon. Time spent on patient care: 10 minutes. Documented by User: Dr. Chester Lennon, 02/19/22 12:33 Subjective Subjective Feeling better. Objective Data Lab / Micro Data Result Diagrams: 02/19/22 03:30 02/19/22 03:30 Physical Exam Const alert and no apparent distress Resp normal respiratory effort, no retractions, no use of accessory muscles and clear to auscultation bilaterally Cardio regular rate, regular rhythm, S1 normal heart sound and S2 normal heart sound GI normal to inspection, nondistended, normoactive bowel sounds GI Narrative: distended soft. Assessment & Plan Assessment/Plan (1) Colonic stricture: PLAN: 1. colonic stricture DW Dr. Pathak, recommends surgery consult NGT in place with decompressive rectal tube Greater than 30 minutes reviewing data, documents, discussing with patient and Gastroenterology. Charges/Coding Visit Charges Inpatient E&M: 27281 Subs Hosp L3
[2022-02-19] MEDS: Metoprolol Tartrate 5 MG/5 ML Vial IV ×2 (16:37→21:13)
[2022-02-19] MEDS: 0.9% Saline Lock 10 ML Syringe IV ×2 (16:37→21:14)
--- NOTE | 2022-02-19 18:55 | PCM.PROGNOTE ---
Subjective Subjective Toxic megacolon status post decompressive colonoscopy. NG tube remains in. She has had multiple bowel movements today. Objective Data Objective Data Vital Signs: Vital Signs Temp Pulse Resp BP Pulse Ox 97.8 F 115 H 16 124/92 H 100 02/19/22 16:35 02/19/22 16:37 02/19/22 16:35 02/19/22 16:37 02/19/22 16:51 Oxygen Flow Rate (L/min) 1 Oxygen Delivery Method Room Air Weight: 144 lb 2.917 oz Body Mass Index (BMI) 25.7 Intake & Output: Intake and Output for Last 24 Hours 02/17/22 02/18/22 02/19/22 23:59 23:59 23:59 Intake Total 2721.25 / 3016.25 1443.75 / 1443.75 Output Total 0 / 0 Balance 2721.25 / 3016.25 1418.75 / 1418.75 Medical Nutrition Assessment Dietitian: Malnutrition Criteria Met Start: 02/18/22 10:47 Freq: Status: Active Protocol: Document 02/19/22 09:31 AG (Rec: 02/19/22 09:32 [id number]) Nutrition Malnutrition Evidence of Malnutrition Exists Yes Malnutrition (moderate): Acute Illness/Injury Evidenced By Suboptimal Energy Intake ( Moderate),Weight Loss ( Moderate) Clinical Problem Acute Disease or Injury Related Malnutrition Etiology moderate, acute malnutrition r /t inadequate energy intake d/ t GI dysfunction Signs/Symptoms as evidenced by estimated PO intake meeting <75% of estimated energy needs >7 days ; mild muscle wasting observed in clavicles, mild loss of body fat in orbital, triceps per physical exam Status Active Problem Recommendation Dietitian Recommendations/Changes recommend advance diet as tolerated to transitional; gradually increase fluids/ fiber as tolerated. Lab / Micro Data Result Diagrams: 02/19/22 03:30 02/19/22 03:30 Labs: Laboratory Results - last 24 hr 02/19/22 03:30: WBC 9.3, RBC 4.37, Hgb 12.4, Hct 37.1, MCV 84.9, MCH 28.4, MCHC 33.4, RDW Std Deviation 44.7 H, RDW Coeff of Jameel 14.4, Plt Count 320, MPV 9.1, Immature Gran % (Auto) 0.200, Neut % (Auto) 59.6, Lymph % (Auto) 30.8, [place] % (Auto) 8.5, Eos % (Auto) 0.5, Baso % (Auto) 0.4, Absolute Neuts (auto) 5.5, Absolute Lymphs (auto) 2.86, Nucleated RBC % 0 02/19/22 03:30: Sodium 143, Potassium 3.2 L, Chloride 106, Carbon Dioxide 28.0, Anion Gap 9, BUN 9, Creatinine 0.30 L, Estim Creat Clear Calc 177.44, Est GFR (MDRD) Af Amer 301, Est GFR (MDRD) Non-Af 249, BUN/Creatinine Ratio 29.9 H, Glucose 63 L, Calcium 8.3 L 02/19/22 06:26: POC Glucose 112 H Micro: Microbiology 02/18/22 15:20 Nasal Secretion SARS-CoV-2 Antigen (Rapid) - Final Physical Exam Const alert General Appearance: cooperative Orientation / Consciousness: oriented to person HEENT hearing grossly normal bilaterally Head and Scalp: normal to inspection Face and Sinus: face symmetric Nose: external nose normal Mouth: oral and palatal mucosa normal Eyes conjunctivae normal General Eye: normal appearance of both eyes Neck full ROM General: normal visual inspection Lymph Lymphatic: no lymphadenopathy noted Chest inspection of chest normal and palpation of chest normal Chest: symmetrical chest wall rise Resp normal respiratory effort Effort and Inspection: able to speak in complete sentences Cardio regular rate GI non-distended Percussion: normal to percussion Rectal Exam: deferred Neuro Speech: speech normal Assessment & Plan Assessment/Plan (1) Colonic stricture: PLAN: Plan is for colonoscopy tomorrow. She can be prep via NG tube. We will perform biopsies tomorrow. If the stricture can be dilated she may be able to go home tomorrow. The plan is for possible colonic stent placement. Patient will need to become more nutritionally sound prior to her undergoing surgery after talking with surgical service. Patient is okay with this plan. (2) Acquired megacolon: PLAN: Acquired megacolon secondary to colonic stricture. The diffuse diagnosis does include colorectal malignancy. Hopefully we will have some answers for her tomorrow. Charges/Coding Visit Charges Inpatient E&M: 30564 Subs Hosp L2
[2022-02-19] MEDS: Electrolyte Solution/Peg's 4000 ML PO (20:07)
[2022-02-19] MEDS: Acetaminophen 325 MG Tablet 650 MG PO (20:54)
[2022-02-20] VITALS (13 sets, daily range): BP systolic 89–123; BP diastolic 59–90; PULSE 87–99; RESP 16–20; TEMP 36.4–37.3; O2SAT 97–98; BMI 23.5
--- NOTE | 2022-02-20 | COLBX_PTH ---
PATIENT: KAYCEE NELSON LOC: [facility] U#:[id number] AGE/SX: 51/F ROOM: [facility] RE02/17/[address]: Dr. Chester Lennon DO : 1970 BED: 1 DIS: 02/21/2022 SPEC #: [id number] RECD: 02/20/22 17:24 STATUS: ANDRY REShari #: [id number] MAXINE: 02/20/22 00:[address]: Malcom Pathak DEPT: SURGICAL PATHOLOGY RECD BY: Edgar Enriquez ENTERED: 02/23/22 08:14 SP TYPE: COLON BX OTHR DR: DO Dr. Rehan Gomez MD Dr. Michael Bortz, MD Dr. Nolan Byler, Tissues: A - SPLENIC FLEXURE B - Sigmoid colon biopsy Procedures: Surgery Specimen Level IV Comments: @ Ordering doctor for SUIV edited from to @ by WOO at 02/23/22 1359 @ Submitting doctor edited from to @ by GUSTAVOOD at 02/23/22 1359 HEADER OPERATION: Colonoscopy with biopsy (MAC), removal of NG tube PRE-OP DIAGNOSIS: Colonic stricture, acquired megacolon TISSUE SUBMITTED: A ? Ulcer at splenic flexure biopsy, B ? Rectosigmoid mass biopsy MICROSCOPIC DIAGNOSIS A. Ulcer at splenic flexure, biopsy: Fragments of colonic mucosa with ulceration, acute and chronic inflammation and granulation tissue reaction. 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 B. Rectosigmoid mass, biopsy: Moderately differentiated invasive adenocarcinoma. See comment. SJ:tianna 02/24/2022 COMMENT B. Immunohistochemistry ([id number]) for microsatellite instability (mismatch repair of protein) will be performed and the results will be reported separately. Case has been reviewed in consultation with Dr. Marc who concurs with the above diagnosis. IDC:AM MICROSCOPIC DESCRIPTION Slides are reviewed. GROSS DESCRIPTION A - Received in fixative is one container labeled with the patient's name and designated ulcer at splenic flexure biopsy. The specimen consists of multiple irregular fragments of light gillis soft tissue that in aggregate measure 0.8 x 0.3 x 0.1 cm. The specimen is totally submitted in one cassette. B - Received in fixative is one container labeled with the patient's name and designated rectosigmoid mass biopsy. The specimen consists of multiple irregular fragments of light gillis soft tissue that in aggregate measure 1.5 x 0.5 x 0.1 cm. The specimen is totally submitted in one cassette. / SJ:rg 02/23/2022 TC:0 CPT: 64815 x2
--- NOTE | 2022-02-20 | IMM_PTH ---
PATIENT: KAYCEE NELSON LOC: [facility] U#:[id number] AGE/SX: 51/F ROOM: [facility] RE02/17/[address]: Dr. Chester Lennon DO : 1970 BED: 1 DIS: 02/21/2022 SPEC #: [id number] RECD: 02/24/22 11:46 STATUS: ANDRY REQ #: [id number] MAXINE: 02/20/22 00:[address]: Ra Zohsaan DEPT: IMMUNOHISTOCHEMISTRY RECD BY: Loree Ignacio ENTERED: 02/24/22 11:48 SP TYPE: IMMUNO OTHR DR: DO Dr. Rehan Gomez MD Dr. Michael Bortz, MD Dr. Nolan Byler, DO Tissues: B - Rectosigmoid junction Procedures: MSH2 (add) MLH-1 (add) MSH6 (add) Anti-PMS2 (add) KELLER-2 (add) KI-67 (add) P53 (add) HER-2-SHANTAL (initial) PHYSICIAN [facility] INSTIT[facility] [address] [address] SPECIMEN INFORMATION: Tissue Source: B ? Rectosigmoid mass biopsy Clinical Info: Colonic stricture, acquired megacolon Specimen Number: [id number] CPT code: 31749, 34608 x7 METHODOLOGY: Deparaffinized sections of prefer/formalin-fixed tissue or PAP/DQ stained slides are incubated with monoclonal/polyclonal antibodies/oligonucleotide probes. Localization is made via biotin free immunoperoxidase method. Appropriate controls are performed and reacted as expected. Results on target cell population are indicated in the following table: RESULTS: ANTIBODY / CLONE RESULT Her-2neu (CB11) negative (0) KELLER-2 (SP21) positive MLH-1 (M1) positive MSH2 (25D12) positive MSH6 (44) positive PMS2 (NWP9526) positive Ki-67 (30-9) positive, high P53 (DO-7) negative These tests were developed and their performance characteristics determined by [facility]. They may not have been cleared or approved by the U.S. Food and Drug Administration. The FDA has determined that such clearance or approval is not necessary. The above immunohistochemical/dualISH markers are ordered and reviewed by the Pathologist. INTERPRETATION: B. Rectosigmoid mass, biopsy: Invasive adenocarcinoma. Result of Microsatellite Instability Study: Negative (no loss of mismatch protein; no microsatellite instability detected). SJ:tianna 02/25/2022
[2022-02-20] MEDS: Ondansetron 4 MG/2 ML Vial IV (03:17)
[2022-02-20] MEDS: 0.9% Saline Lock 10 ML Syringe IV ×2 (03:17→06:54)
--- NOTE | 2022-02-20 05:55 | EKG12_ITS ---
Test Reason : PRE OP Blood Pressure : / mmHG Vent. Rate : 090 BPM Atrial Rate : 090 BPM P-R Int : 150 ms QRS Dur : 084 ms QT Int : 378 ms P-R-T Axes : 068 061 107 degrees QTc Int : 462 ms Normal sinus rhythm T wave abnormality, consider lateral ischemia Abnormal ECG No previous ECGs available Confirmed by TORREY PEARSON, KRISTYN ([id number]), editor in chief IVÁN EDGAR ([id number]) on 02/20/2022 1:05:34 PM Referred By: MICHAEL Confirmed By:KRISTYN HIRSCH MD
[2022-02-20] MEDS: Metoprolol Tartrate 5 MG/5 ML Vial IV (06:54)
[2022-02-20] MEDS: Morphine 2 MG/ML Syringe IV (06:55)
[2022-02-20 06:58] LABS: Anion Gap 5 (5-15); BUN 5 mg/dL (7-18); BUN/Creat Ratio 16.3 RATIO (10-20); Calcium,Total 8.2 mg/dL (8.5-10.1); Chloride 104 mmol/L (98-107); Creatinine, Serum 0.31 mg/dL (0.55-1.02); EST Glomerular Filtration Rate 244 mL/min (>60); Est Glom Filt Rate - Afr Amer 295 mL/min (>60); Glucose 110 mg/dL (74-106); Magnesium 1.9 mg/dL (1.6-2.6); Sodium Level 138 mmol/L (136-145)
[2022-02-20] MEDS: Potassium Chloride 10mEq/100mL 10 MEQ/100 ML IV.SOLN. 100 MEQ IV BOLUS ×4 (08:09→11:44)
[2022-02-20] MEDS: Potassium Chloride 40 MEQ in Dext 5%-0.45% NS 1,000 ML 75 MEQ IV ×2 (09:16→22:02)
--- NOTE | 2022-02-20 11:34 | PCM.PN.SRG ---
Subjective Subjective Patient seen and examined during AM rounds. She is found sitting out of bed in a chair reading a newspaper. She describes success with her bowel prep overnight and reports her output is now clear. She reports further improvement in her abdominal symptoms. Objective Data Objective Data Vital Signs: Vital Signs Temp Pulse Resp BP Pulse Ox 98.0 F 93 18 123/90 H 97 02/20/22 09:15 02/20/22 09:15 02/20/22 09:15 02/20/22 09:15 02/20/22 09:15 Oxygen Flow Rate (L/min) 1 Oxygen Delivery Method Room Air Weight: 132 lb 15.02 oz Body Mass Index (BMI) 23.5 Intake & Output: Intake and Output for Last 24 Hours 02/18/22 02/19/22 02/20/22 23:59 23:59 23:59 Intake Total 2721.25 / 3016.25 2723.75 / 2723.75 1250 / 1250 Output Total 0 / 0 25 / 25 Balance 2721.25 / 3016.25 2698.75 / 2698.75 1250 / 1250 Medical Nutrition Assessment Dietitian: Malnutrition Criteria Met Start: 02/18/22 10:47 Freq: Status: Active Protocol: Document 02/19/22 09:31 AG (Rec: 02/19/22 09:32 [id number]) Nutrition Malnutrition Evidence of Malnutrition Exists Yes Malnutrition (moderate): Acute Illness/Injury Evidenced By Suboptimal Energy Intake ( Moderate),Weight Loss ( Moderate) Clinical Problem Acute Disease or Injury Related Malnutrition Etiology moderate, acute malnutrition r /t inadequate energy intake d/ t GI dysfunction Signs/Symptoms as evidenced by estimated PO intake meeting <75% of estimated energy needs >7 days ; mild muscle wasting observed in clavicles, mild loss of body fat in orbital, triceps per physical exam Status Active Problem Recommendation Dietitian Recommendations/Changes recommend advance diet as tolerated to transitional; gradually increase fluids/ fiber as tolerated. Lab / Micro Data Result Diagrams: 02/19/22 03:30 02/20/22 06:00 Labs: Laboratory Results - last 24 hr 02/20/22 06:00: Sodium 138, Potassium 3.0 L, Chloride 104, Carbon Dioxide 29.0, Anion Gap 5, BUN 5 L, Creatinine 0.31 L, Estim Creat Clear Calc 179.60, Est GFR (MDRD) Af Amer 295, Est GFR (MDRD) Non-Af 244, BUN/Creatinine Ratio 16.3, Glucose 110 H, Calcium 8.2 L, Magnesium 1.9 Micro: Microbiology 02/18/22 15:20 Nasal Secretion SARS-CoV-2 Antigen (Rapid) - Final Physical Exam Const no apparent distress Resp normal respiratory effort GI GI Narrative: Significant improvement in abdominal distention, soft, nontender to palpation Assessment & Plan Assessment/Plan (1) Acquired megacolon: (2) Colonic stricture: PLAN: Patient is a 51-year-old female who was admitted with signs and symptoms of megacolon felt to be secondary to possible [place]'s versus distal colonic obstruction. She was taken for emergent colonoscopy and found to have a distal colonic stricture. Surgery was consulted for consideration of possible resection. Unfortunately, given the inability to bowel prep the patient, little else was seen during the exam aside from the stricture. Following dilation of the stricture, patient has experienced significant colonic decompression. Case was discussed with gastroenterology and she is due to go for a formal colonoscopy exam today. Objectives of today's exam include biopsies of the stricture site as well as possible colonic stenting. Once these pathology results are known and patient is able to improve her nutrition, we will plan for resection and reanastomosis. Should patient discharge today or tomorrow, I would like to see her back in follow-up in the next week or two post hospital discharge to discuss further.
--- NOTE | 2022-02-20 14:26 | CHAPLAIN ---
Type of Pastoral Visit _x__ Initial Visit ___ Follow-up Visit ___ On-call Visit ___ General Patient Visit ___ Spiritual Assessment ___ Family Conference ___ Bereavement ___ Rapid Response ___ Code Blue ___ Other (describe below) Pastoral Care Referral From _x__ Patient ___ Family ___ Nurse ___ Physician ___ Agate Setter ___ Shirt Ironer Supervisor ___ Other (describe below) Sacrament/Intervention ___ Active listening ___ Anointing ___ Taoist ___ Bereavement ___ Communion ___ Makayla exploration ___ ___ Life review _x__ Prayer ___ Reconciliation ___ Sacrament of Sick _x__ Supportive presence ___ Wedding ___ Other (describe below) Pastoral Comments patient was getting back into bed after taking a walk in hallway; spouse and sister are in room with patient; pt is welcoming but quiet; spouse and pt do welcome a prayer; no other needs at this time; pt will soon go for colonoscopy
--- NOTE | 2022-02-20 15:11 | PN.HOSP_ITS ---
Subjective Subjective Feels well. Abdomen much less distended. Objective Data Objective Data Vital Signs: Vital Signs Temp Pulse Resp BP Pulse Ox 36.7 C 93 18 123/90 H 97 02/20/22 09:15 02/20/22 09:15 02/20/22 09:15 02/20/22 09:15 02/20/22 09:15 Oxygen Flow Rate (L/min) 1 Oxygen Delivery Method Room Air Weight: 60.3 kg Body Mass Index (BMI) 23.5 Intake & Output: Intake and Output for Last 24 Hours 02/18/22 02/19/22 02/20/22 23:59 23:59 23:59 Intake Total 2721.25 / 3016.25 2723.75 / 2723.75 1450 / 1450 Output Total 0 / 0 25 Balance 2721.25 / 3016.25 2698.75 / 2698.75 1450 / 1450 Medical Nutrition Assessment Dietitian: Malnutrition Criteria Met Start: 02/18/22 10:47 Freq: Status: Active Protocol: Document 02/19/22 09:31 (Rec: 02/19/22 09:32 [id number]) Nutrition Malnutrition Evidence of Malnutrition Exists Yes Malnutrition (moderate): Acute Illness/Injury Evidenced By Suboptimal Energy Intake ( Moderate),Weight Loss ( Moderate) Clinical Problem Acute Disease or Injury Related Malnutrition Etiology moderate, acute malnutrition r /t inadequate energy intake d/ t GI dysfunction Signs/Symptoms as evidenced by estimated PO intake meeting <75% of estimated energy needs >7 days ; mild muscle wasting observed in clavicles, mild loss of body fat in orbital, triceps per physical exam Status Active Problem Recommendation Dietitian Recommendations/Changes recommend advance diet as tolerated to transitional; gradually increase fluids/ fiber as tolerated. Lab / Micro Data Result Diagrams: 02/19/22 03:30 02/20/22 06:00 Labs: Laboratory Results - last 24 hr 02/20/22 06:00: Sodium 138, Potassium 3.0 L, Chloride 104, Carbon Dioxide 29.0, Anion Gap 5, BUN 5 L, Creatinine 0.31 L, Estim Creat Clear Calc 179.60, Est GFR (MDRD) Af Amer 295, Est GFR (MDRD) Non-Af 244, BUN/Creatinine Ratio 16.3, Glucose 110 H, Calcium 8.2 L, Magnesium 1.9 Micro: Microbiology 02/18/22 15:20 Nasal Secretion SARS-CoV-2 Antigen (Rapid) - Final Physical Exam Const alert and no apparent distress Resp normal respiratory effort, no retractions, no use of accessory muscles and clear to auscultation bilaterally Cardio regular rate, regular rhythm, S1 normal heart sound and S2 normal heart sound GI normal to inspection, nondistended, normoactive bowel sounds GI Narrative: Hypoactive bowel sounds. Abdomen is extremely soft and nontender. Assessment & Plan Assessment/Plan (1) Colonic stricture: PLAN: 1. Colonic stricture Patient for repeat colonoscopy to see if there is any mass that may be causing that. Any kind of stenting will be at the discretion of the material control associate. General surgery following but no urgent surgery at this time. Depending on the patient's course that timing will be determined. 2. Acquired megacolon Secondary to above Abdomen much softer today. Continue with NG tube for decompression. 3. VTE prophylaxis with SCDs. 4. Hypokalemia Continue with replacement Charges/Coding Visit Charges Inpatient E&M: 49821 Subs Hosp L2
--- NOTE | 2022-02-20 16:47 | OP.CCLET_ITS ---
07/10/2022 Jeffrey Marie Re : Colonoscopy procedure for Gisela Goldberg Dear Cynthia This procedure was performed on Sunday, February 20, 2022. My impressions and recommendations are as follows: Impressions : - Preparation of the colon was fair. - Hemorrhoids found on perianal exam. - Likely malignant partially obstructing tumor in the proximal sigmoid colon. Biopsied. - Stricture in the recto-sigmoid colon and in the sigmoid colon. Dilated. - Mucosal ulceration. Biopsied. Recommendations : - Discharge patient to home. - Resume previous diet. - Continue present medications. - Await pathology results. - Repeat colonoscopy is recommended for surveillance. The colonoscopy date will be determined after pathology results from today's exam become available for review. My findings are described in the full procedure note, which is enclosed. If I can be of further assistance, please feel free to contact me at . Sincerely, Malcom Pathak, 02/20/2022 4:46:57 PM This report has been signed electronically.
--- NOTE | 2022-02-20 16:47 | OP.COLON_ITS ---
Patient Name: Gisela Goldberg Procedure Date: 02/20/2022 3:58 PM Date of : 1970 Age: 51 Procedure: Colonoscopy Indications: Therapeutic procedure for known colon mass Providers: Malcom Pathak DO Medicines: Monitored Anesthesia Care Patient Profile: This is a 51 year old female. Refer to note in patient chart for documentation of history and physical. Last Colonoscopy: date unknown. Complications: No immediate complications. Procedure: Pre-Anesthesia Assessment: - Prior to the procedure, a History and Physical was performed, and patient medications and allergies were reviewed. The patient is competent. The risks and benefits of the procedure and the sedation options and risks were discussed with the patient. All questions were answered and informed consent was obtained. Patient identification and proposed procedure were verified by the physician in the pre-procedure area. Mental Status Examination: alert and oriented. Airway Examination: normal oropharyngeal airway and neck mobility. Respiratory Examination: clear to auscultation. CV Examination: normal. Prophylactic Antibiotics: The patient does not require prophylactic antibiotics. Prior Anticoagulants: The patient has taken no previous anticoagulant or antiplatelet agents. After reviewing the risks and benefits, the patient was deemed in satisfactory condition to undergo the procedure. The anesthesia plan was to use moderate sedation / analgesia (conscious sedation). Immediately prior to administration of medications, the patient was re-assessed for adequacy to receive sedatives. The heart rate, respiratory rate, oxygen saturations, blood pressure, adequacy of pulmonary ventilation, and response to care were monitored throughout the procedure. The physical status of the patient was re-assessed after the procedure. After I obtained informed consent, the scope was passed under direct vision. Throughout the procedure, the patient's blood pressure, pulse, and oxygen saturations were monitored continuously. The Colonoscope was introduced through the anus and advanced to the cecum, identified by appendiceal orifice and ileocecal valve. The colonoscopy was performed without difficulty. The patient tolerated the procedure well. The quality of the bowel preparation was fair. Scope In: 4:10:21 PM Scope Withdrawal Time 0 hours 11 minutes 49 seconds Scope Out: 4:34:24 PM Total Procedure Duration Time 0 hours 24 minutes 3 seconds Findings: Hemorrhoids were found on perianal exam. An ulcerated partially obstructing large mass was found in the proximal sigmoid colon. The mass was circumferential. The mass measured three cm in length. In addition, its diameter measured five mm. No bleeding was present. This was biopsied with a cold forceps for histology. Verification of patient identification for the specimen was done. Estimated blood loss was minimal. A malignant-appearing, intrinsic severe stenosis measuring 3 cm (in length) x 5 mm (inner diameter) was found in the recto-sigmoid colon and in the sigmoid colon and was traversed after dilation. A TTS dilator was passed through the scope. Dilation with a 13.5-14.5-15.5 mm colonic balloon dilator was performed. The dilation site was examined following endoscope reinsertion and showed complete resolution of luminal narrowing. Estimated blood loss was minimal. Discontinuous areas of nonbleeding ulcerated mucosa with no stigmata of recent bleeding were present at the splenic flexure. Biopsies were taken with a cold forceps for histology. Verification of patient identification for the specimen was done. Estimated blood loss was minimal. Impression: - Preparation of the colon was fair. - Hemorrhoids found on perianal exam. - Likely malignant partially obstructing tumor in the proximal sigmoid colon. Biopsied. - Stricture in the recto-sigmoid colon and in the sigmoid colon. Dilated. - Mucosal ulceration. Biopsied. Recommendation: - Discharge patient to home. - Resume previous diet. - Continue present medications. - Await pathology results. - Repeat colonoscopy is recommended for surveillance. The colonoscopy date will be determined after pathology results from today's exam become available for review. Procedure Code(s): --- Professional --- 14694, Colonoscopy, flexible; with transendoscopic balloon dilation 52396, Colonoscopy, flexible; with biopsy, single or multiple CPT copyright 2017 [employer]. All rights reserved. The codes documented in this report are preliminary and upon quality control review may be revised to meet current compliance requirements. Malcom Pathak DO 02/20/2022 4:46:57 PM This report has been signed electronically. Number of Addenda: 1 Note Initiated On: 02/20/2022 3:58 PM Addendum Number: 1 Addendum Date: 07/10/2022 6:22:51 AM MAC was used as sedation for this procedure. Malcom Pathak DO 07/10/2022 6:22:55 AM This report has been signed electronically.
[2022-02-21 03:30] VITALS: BP 102/72; PULSE 93; RESP 18; TEMP 37.1; O2SAT 98
[2022-02-21 05:33] VITALS: BP 106/77; PULSE 92; RESP 18; TEMP 37.1; O2SAT 99
[2022-02-21 05:39] VITALS: BP 106/77; PULSE 92
[2022-02-21 05:51] LABS: Anion Gap 7 (5-15); BUN 5 mg/dL (7-18); BUN/Creat Ratio 12.5 RATIO (10-20); Calcium,Total 7.8 mg/dL (8.5-10.1); Chloride 112 mmol/L (98-107); EST Glomerular Filtration Rate 179 mL/min (>60); Est Glom Filt Rate - Afr Amer 216 mL/min (>60); Estimated Creatinine Clearance 139.19 ml/min; Glucose 132 mg/dL (74-106); Potassium 2.6 mmol/L (3.5-5.1); Sodium Level 144 mmol/L (136-145)
[2022-02-21] MEDS: Potassium Chloride 10mEq/100mL 10 MEQ/100 ML IV.SOLN. 100 MEQ IV BOLUS ×4 (06:18→09:58)
--- NOTE | 2022-02-21 08:00 | PCM.PN.SRG ---
Subjective Subjective Patient sitting up in chair Objective Data Objective Data Abdomen soft Vital Signs: Vital Signs Temp Pulse Resp BP Pulse Ox 98.7 F 92 18 106/77 99 02/21/22 05:33 02/21/22 05:39 02/21/22 05:33 02/21/22 05:39 02/21/22 05:33 Oxygen Flow Rate (L/min) 1 Oxygen Delivery Method Room Air Weight: 130 lb 1.164 oz Body Mass Index (BMI) 23.5 Intake & Output: Intake and Output for Last 24 Hours 02/19/22 02/20/22 02/21/22 23:59 23:59 23:59 Intake Total 2723.75 / 2723.75 2407.5 / 2407.5 320 / 320 Output Total 25 / 25 Balance 2698.75 / 2698.75 2407.5 / 2407.5 320 / 320 Medical Nutrition Assessment Dietitian: Malnutrition Criteria Met Start: 02/18/22 10:47 Freq: Status: Active Protocol: Document 02/19/22 09:31 AG (Rec: 02/19/22 09:32 [id number]) Nutrition Malnutrition Evidence of Malnutrition Exists Yes Malnutrition (moderate): Acute Illness/Injury Evidenced By Suboptimal Energy Intake ( Moderate),Weight Loss ( Moderate) Clinical Problem Acute Disease or Injury Related Malnutrition Etiology moderate, acute malnutrition r /t inadequate energy intake d/ t GI dysfunction Signs/Symptoms as evidenced by estimated PO intake meeting <75% of estimated energy needs >7 days ; mild muscle wasting observed in clavicles, mild loss of body fat in orbital, triceps per physical exam Status Active Problem Recommendation Dietitian Recommendations/Changes recommend advance diet as tolerated to transitional; gradually increase fluids/ fiber as tolerated. Lab / Micro Data Result Diagrams: 02/19/22 03:30 02/21/22 04:41 Labs: Laboratory Results - last 24 hr 02/21/22 04:41: Sodium 144, Potassium 2.6 L*, Chloride 112 H, Carbon Dioxide 25.0, Anion Gap 7, BUN 5 L, Creatinine 0.40 L, Estim Creat Clear Calc 139.19, Est GFR (MDRD) Af Amer 216, Est GFR (MDRD) Non-Af 179, BUN/Creatinine Ratio 12.5, Glucose 132 H, Calcium 7.8 L Micro: Microbiology 02/18/22 15:20 Nasal Secretion SARS-CoV-2 Antigen (Rapid) - Final Assessment & Plan Assessment/Plan (1) Colonic stricture: PLAN: Anticipate discharge today.
[2022-02-21 08:38] VITALS: BP 112/82; PULSE 99; RESP 12; TEMP 36.6; O2SAT 98
[2022-02-21] MEDS: Potassium Chloride Oral Tablet 20 MEQ 40 MEQ PO (09:58)
--- NOTE | 2022-02-21 11:36 | PCM.DC ---
Discharge Instructions Diet Discharge Diet: No restrictions Activity Discharge Activity: Return to Normal Activity Weight Bearing Status: Weight bearing as tolerated Dressing / Incision Call your doctor if you observe: Fever of 101 or Higher, Numbness or Tingling, Shortness of breath, Dizziness, Chest pain, Increased palpitations (irregular heartbeat) and Calf discomfort Follow Up Care Please Follow Up With: Primary care provider When: Within the next two weeks. Test Results: Test results from this visit will be discussed in further detail at your follow-up appointment, if applicable. Discharge Plan Admission Admit Date/Time: 02/17/22 23:41 Primary Reason for Your Visit: Abdominal distention Attending Provider: Chester Lennon Primary Care Provider: Jeffrey Marie Consulting Providers: Rehan Martini ; Jeff Leigh Discharge Orders/Prescriptions Prescriptions: New potassium chloride [Klor-Con M20] 20 mEq Tablet,Er Particles/Crystals 40 meq PO DAILY Qty: 60 RF: 0 Continued telmisartan 40 mg Tablet 40 mg PO DAILY RF: 0 Referrals / Follow Up: Jeffrey Marie DO [Primary Care Provider] - Within 2 Weeks Malcom Pathak DO [STAFF PHYSICIAN] - See Referral Note (Establish appointment with Dr. Pathak for biopsy results and possible repeat colonoscopy. ) Disposition Disposition (needs filled in before D/C Order can be placed): Home, Self Care
[2022-02-21 12:05] LABS: Anion Gap 5 (5-15); BUN 4 mg/dL (7-18); BUN/Creat Ratio 11.1 RATIO (10-20); Calcium,Total 7.9 mg/dL (8.5-10.1); Chloride 112 mmol/L (98-107); Creatinine, Serum 0.36 mg/dL (0.55-1.02); EST Glomerular Filtration Rate 202 mL/min (>60); Est Glom Filt Rate - Afr Amer 245 mL/min (>60); Estimated Creatinine Clearance 154.65 ml/min; Glucose 110 mg/dL (74-106); Potassium 3.2 mmol/L (3.5-5.1); Sodium Level 142 mmol/L (136-145)
[2022-02-21 13:53] LABS: Anion Gap 5 (5-15); BUN 6 mg/dL (7-18); BUN/Creat Ratio 15.1 RATIO (10-20); Calcium,Total 7.6 mg/dL (8.5-10.1); Chloride 113 mmol/L (98-107); EST Glomerular Filtration Rate 181 mL/min (>60); Est Glom Filt Rate - Afr Amer 219 mL/min (>60); Estimated Creatinine Clearance 139.19 ml/min; Glucose 125 mg/dL (74-106); Potassium 3.1 mmol/L (3.5-5.1); Sodium Level 143 mmol/L (136-145)
[2022-02-21 14:07] VITALS: BP 108/73; PULSE 94; RESP 16; TEMP 36.8; O2SAT 94
[2022-02-21 14:08] VITALS: BP 108/73; PULSE 87
--- NOTE | 2022-02-21 15:19 | DS.PCM_ITS ---
Documented by User: Chico JOSE 02/21/22 15:33 Providers Date of Admission: 02/17/22 Date of Discharge: 02/21/22 Primary Care Physician: Dr. Jeffrey Marie, Consultations 02/18/22 00:10 Consult: Gastroenterology Routine Consulting Provider: Carol Fernández Reason for Consult: Megacolon EMERGENT Consult: No Notified: Yes Date Notified: 02/17/22 Time Notified: 23:42 Method of Notification: ED Physician Initiated 02/19/22 07:18 Consult: General Surgery Routine Consulting Provider: Jeff Leigh Reason for Consult: colonic stricture EMERGENT Consult: No Notified: Yes Date Notified: 02/19/22 Time Notified: 07:18 Method of Notification: Text Reason For Visit: AQUIRED MEGACOLON Diagnosis Discharge Diagnosis (1) Colonic stricture: Status: Acute Code(s): K56.699 - Other intestinal obstruction unspecified as to partial versus complete obstruction Medications at Discharge Home Medications telmisartan 40 mg PO DAILY 02/17/22 potassium chloride [Klor-Con M20] 40 meq PO DAILY #60 tab 02/21/22 Hospital Course Procedures Colonoscopy and EGD Summary of Care Provided Minutes Spent on Discharge: 20 Hospital Course: Patient is a 51-year-old female who was admitted to [facility] on 02/17/2022 for evaluation and management of constipation with severe abdominal distention. Hospital course and management as below. 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 Patient was observed to have a partially obstructing tumor in the proximal colon and a stricture in the rectosigmoid colon. Tumor in the proximal colon was biopsied, stricture in the rectosigmoid colon was relieved by dilatation. NG tube that was placed on admission, it was subsequently removed and patient tolerated advancement of diet. Will discharge with outpatient follow-up with Dr. Pathak. 2) toxic megacolon Secondary to #1, resolved. On day of discharge patient was able to tolerate a regular diet and abdomen was soft and nontender to palpation. Outpatient follow-up as above. 3) hypokalemia On day of discharge patient's potassium was noted to be 2.6. Patient's potassium was replaced via IV, and upon recheck was 3.2. Patient was provided outpatient potassium supplementation and is to follow-up with her primary care provider to monitor electrolytes. 4) HTN Continue home telmisartan. Patient seen by Chico Charles PA-C, under the supervision of Dr. Lennon. Time spent on patient care: 20 minutes. Physical Exam Narrative Patient is a 51-year-old female currently resting in bed, alert and orient x3. Patient has had NG tube removed and is tolerating advancement of diet well. Denies development of any new symptoms overnight. Const alert, oriented x3 and no apparent distress HEENT normocephalic, head/scalp atraumatic and hearing grossly normal bilaterally Eyes PERRL, EOMs intact bilaterally and conjunctivae normal Neck no lymphadenopathy, supple and no JVD Resp normal respiratory effort, no retractions and no use of accessory muscles Cardio regular rate, regular rhythm and no JVD GI normal to inspection, nondistended, normoactive bowel sounds, soft to palpation and non-tender GI Narrative: Patient reports tolerating advancement of diet well. Extremity normal to inspection, full ROM and no clubbing, cyanosis or edema Skin no rashes or lesions noted, no wounds and skin turgor normal Neuro CN's II-XII intact bilaterally Psych affect normal Weight / BMI Weight Weight: 130 lb 1.164 oz Body Mass Index (BMI) 23.5 ABG / Lab / Microbiology Data Result Diagrams: 02/19/22 03:30 02/21/22 13:20 Laboratory: Laboratory Results - last 24 hr 02/21/22 04:41: Sodium 144, Potassium 2.6 L*, Chloride 112 H, Carbon Dioxide 25.0, Anion Gap 7, BUN 5 L, Creatinine 0.40 L, Estim Creat Clear Calc 139.19, Est GFR (MDRD) Af Amer 216, Est GFR (MDRD) Non-Af 179, BUN/Creatinine Ratio 12.5, Glucose 132 H, Calcium 7.8 L 02/21/22 11:22: Sodium 142, Potassium 3.2 L, Chloride 112 H, Carbon Dioxide 25.0, Anion Gap 5, BUN 4 L, Creatinine 0.36 L, Estim Creat Clear Calc 154.65, Est GFR (MDRD) Af Amer 245, Est GFR (MDRD) Non-Af 202, BUN/Creatinine Ratio 11.1, Glucose 110 H, Calcium 7.9 L 02/21/22 13:20: Sodium 143, Potassium 3.1 L, Chloride 113 H, Carbon Dioxide 25.0, Anion Gap 5, BUN 6 L, Creatinine 0.40 L, Estim Creat Clear Calc 139.19, Est GFR (MDRD) Af Amer 219, Est GFR (MDRD) Non-Af 181, BUN/Creatinine Ratio 15.1, Glucose 125 H, Calcium 7.6 L Microbiology: Microbiology 02/18/22 15:20 Nasal Secretion SARS-CoV-2 Antigen (Rapid) - Final D/C Instructions Discharge Diet: No restrictions Weight Bearing Status: Weight bearing as tolerated Call your doctor if you observe: Fever of 101 or Higher, Numbness or Tingling, Shortness of breath, Dizziness, Chest pain, Increased palpitations (irregular heartbeat) and Calf discomfort Please Follow Up With: Primary care provider When: Within the next two weeks. Meaningful Use Info Meaningful Use Diagnoses (Choose all that apply): None applicable Discharge Plan Admission Admit Date/Time: 02/17/22 23:41 Primary Reason for Your Visit: Abdominal distention Attending Provider: Chester Lennon Primary Care Provider: Jeffrey Marie Consulting Providers: Rehan Martini ; Jeff Leigh Discharge Orders/Prescriptions Prescriptions: New potassium chloride [Klor-Con M20] 20 mEq Tablet,Er Particles/Crystals 40 meq PO DAILY Qty: 60 RF: 0 Continued telmisartan 40 mg Tablet 40 mg PO DAILY RF: 0 Referrals / Follow Up: Jeffrey Marie DO [Primary Care Provider] - Within 2 Weeks Malcom Pathak DO [STAFF PHYSICIAN] - See Referral Note (Establish appointment with Dr. Pathak for biopsy results and possible repeat colonoscopy. ) Disposition Disposition (needs filled in before D/C Order can be placed): Home, Self Care Documented by User: Dr. Chester Lennon DO 02/21/22 16:35 Providers Date of Admission: 02/17/22 Reason For Visit: AQUIRED MEGACOLON Medications at Discharge Home Medications telmisartan 40 mg PO DAILY 02/17/22 potassium chloride [Klor-Con M20] 40 meq PO DAILY #60 tab 02/21/22 Hospital Course Operations None Procedures Colonoscopy Summary of Care Provided Minutes Spent on Discharge: 32 Hospital Course: Patient seen and examined independently. Data and vitals reviewed. I agree with the above note by the physician assistant softball coach. This is a 51-year-old Sh[employer] female presents with abdominal distention. Had been seen earlier and had a profound distention but had not gotten any better. Was initially concern to be a volvulus the patient underwent a colonoscopy on noted hemorrhoids and a stricture in the sigmoid colon. Patient was seen by general surgery and would want to get more information before commencing with any kind of colectomy or partial colectomy. Repeat colonoscopy again showed hemorrhoids and what looked to be a likely malignant partial obstructing tumor in the proximal sigmoid colon that was biopsied. While patient was here she did have NG tube as well as rectal decompression but her abdomen is much less distended. Patient is overall feeling well and plan is for the patient to be discharged. Patient follow-up gastroenterology and then with general surgery down the road. Physical Exam Const alert Resp normal respiratory effort, no retractions, no use of accessory muscles and clear to auscultation bilaterally Cardio regular rate, regular rhythm, S1 normal heart sound and S2 normal heart sound GI normal to inspection, nondistended, normoactive bowel sounds Neuro Sensorium / Orientation: awake and alert ABG / Lab / Microbiology Data Result Diagrams: 02/19/22 03:30 02/21/22 13:20 Discharge Plan Admission Admit Date/Time: 02/17/22 23:41 Primary Reason for Your Visit: Abdominal distention Attending Provider: Chester Lennon Primary Care Provider: Jeffrey Marie Consulting Providers: Rehan Martini ; Jeff Leigh Discharge Orders/Prescriptions Prescriptions: New potassium chloride [Klor-Con M20] 20 mEq Tablet,Er Particles/Crystals 40 meq PO DAILY Qty: 60 RF: 0 Continued telmisartan 40 mg Tablet 40 mg PO DAILY RF: 0 Referrals / Follow Up: Jeffrey Marie DO [Primary Care Provider] - Within 2 Weeks Malcom Pathak DO [STAFF PHYSICIAN] - See Referral Note (Establish appointment with Dr. Pathak for biopsy results and possible repeat colonoscopy. ) Disposition Disposition (needs filled in before D/C Order can be placed): Home, Self Care Charges/Coding Visit Charges Inpatient E&M: 69587 Disch Hosp
== END 2022-02-21 14:44 | disposition home or self-care (01) | DRG 389 ==
LOC: ED 23:04 → ICU 23:48 → PCU 02-19 10:37
PROVIDERS: Internal Medicine Gastroenterology; Nurse Practitioner Family; Admitting Provider Hospitalist; Emergency Provider Emergency Medicine; PCP Family Medicine
PROC: 0DJD8ZZ Inspection of Lower Intestinal Tract, Via Natural or Artificial Opening Endoscopic (ICD-10-PCS; CPT 45378; principal; 2022-02-18 16:55)
DX: K56.699 Other intestinal obstruction unspecified as to partial versus complete obstruction (principal); E44.0 Moderate protein-calorie malnutrition; K59.31 Toxic megacolon; K63.3 Ulcer of intestine; C19 Malignant neoplasm of rectosigmoid junction; E87.6 Hypokalemia; I10 Essential (primary) hypertension; K64.4 Residual hemorrhoidal skin tags; Z79.899 Other long term (current) drug therapy; G47.00 Insomnia, unspecified; Z68.23 Body mass index [BMI] 23.0-23.9, adult
CPT/HCPCS: 36415; 74018; 74177; 80048; 80053; 81001; 82962; 83690; 83735; 85025; 87426; 88305; 88341; 88342; 93005; 97802; 99251; 99284; J7120; Q9967; A4216; C1769; G0463; J2405; J7799

== ENCOUNTER 2022-03-06 10:12 | Inpatient (IN) | payer OTHER, SELFPAY ==
[2022-03-06] VITALS (11 sets, daily range): BP systolic 139–166; BP diastolic 91–98; PULSE 87–102; RESP 16–21; TEMP 36.2–37.3; O2SAT 95–100; BMI 23.6; BMI 23.3
--- NOTE | 2022-03-06 10:35 | EX.ED.DYSGE1 ---
HPI History of Present Illness Chief Complaint: Constipation Informant: patient Narrative Narrative: Patient presents from radiology secondary to recurrent bowel dilatation. Patient was in the hospital February 17 to the with what appeared to be megacolon on imaging. She was decompressed by Dr. Pathak. Colonoscopy revealed a partially obstructing tumor in the proximal colon and a stricture in the rectosigmoid colon. Biopsy revealed invasive adenocarcinoma. She was seen by surgery earlier this week who felt that patient should be seen by a colorectal surgeon due to the location of the rectosigmoid lesion. In the meantime patient has now developed recurrent abdominal distention. She did have a small bowel movement this morning. Dr. Pathak had her come in today for an x-ray which reveals distended bowel again. [facility] Medical History Colon cancer Hypertension Home Medications telmisartan 40 mg PO DAILY 02/17/22 [History Last Taken Unknown] potassium chloride [Klor-Con M20] 40 meq PO DAILY #60 tab 02/21/22 [Rx Last Taken Unknown] Allergy/AdvReac Type Severity Reaction Status Date / Time No Known Allergies Allergy Verified 03/06/22 10:13 Surgical History Hx of cholecystectomy Social History Smoking Status: Never smoker alcohol intake: never substance use type: does not use ROS ROS ED Constitutional Constitutional ED: Denies chills or fever(s) Eyes Eyes: Denies change in vision ENT ENT ED: Denies sore throat Cardiovascular Cardiovascular: Denies chest pain Respiratory/Chest Respiratory/Chest: Denies cough or dyspnea Gastrointestinal Gastrointestinal: Reports abdominal pain and constipation; Denies diarrhea, nausea or vomiting Genitourinary Genitourinary ED: Denies dysuria Musculoskeletal Musculoskeletal: Denies back pain Integumentary Denies rash Neurologic Neurologic: Denies headache(s) or weakness Allergic/Immunologic Allergic/Immunologic ED: Denies urticaria EXAM Physical Exam Const Vital Signs: 03/06/22 10:14 Temperature 98.6 F Temperature Source Temporal Pulse Rate 94 Respiratory Rate 17 Blood Pressure 139/97 H Blood Pressure Mean 111 Pulse Ox 96 Oxygen Delivery Method Room Air Positive well nourished and well developed General Appearance ED: well developed HEENT Reports moist mucous membranes Eyes PERRL and EOMs intact bilaterally Neck supple Chest Wall inspection of chest normal and palpation of chest normal Resp normal respiratory effort and clear to auscultation bilaterally Cardio regular rate and regular rhythm GI GI Narrative: Abdomen is soft and distended. Hyperactive bowel sounds noted. No focal tenderness. Palpation: soft Psych mental status grossly normal Skin no rashes or lesions noted MDM MDM MDM Narrative Medical decision making narrative: Lab work obtained. X-ray obtained earlier today is reviewed. Lab Data Attestation: I reviewed the patient's lab results. Labs: Laboratory Results - last 24 hr 03/06/22 03/06/22 10:45 10:45 WBC 5.6 RBC 3.73 L Hgb 10.7 L Hct 32.9 L MCV 88.2 MCH 28.7 MCHC 32.5 RDW Std Deviation 52.0 H RDW Coeff of Jameel 16.2 H Plt Count 417 MPV 9.2 Immature Gran % (Auto) 0.200 Neut % (Auto) 55.7 Lymph % (Auto) 33.9 Grant % (Auto) 8.4 Eos % (Auto) 1.1 Baso % (Auto) 0.7 Absolute Neuts (auto) 3.1 Absolute Lymphs (auto) 1.89 Nucleated RBC % 0 Sodium 140 Potassium 2.9 L Chloride 105 Carbon Dioxide 30.0 Anion Gap 5 BUN 6 L Creatinine 0.38 L Estim Creat Clear Calc 146.51 Est GFR (MDRD) Af Amer 231 Est GFR (MDRD) Non-Af 191 BUN/Creatinine Ratio 15.8 Glucose 95 Calcium 9.6 Treatment and Re-Evaluation Narrative: Dr. Pathak had initially recommended transferring the patient to a tertiary facility where colorectal surgery could be involved in her care. At this time patient is refusing transfer and states she just wants to stay here to be decompressed and will follow up for surgery at a later time. She understands that this delay could lead to further progression of her cancer. Lab work is reviewed and does reveal low potassium at 2.9. This we replaced IV. I did speak with Dr. Pathak and advised him of the patient's wishes. I will speak with hospitalist for admission. Discharge Plan Triage Chief Complaint: Constipation ED Provider: Michelle Zamora Dx/Rx/DC Orders Clinical Impression: Colon distention, Colon cancer Prescriptions: No Action telmisartan 40 mg Tablet 40 mg PO DAILY RF: 0 potassium chloride [Klor-Con M20] 20 mEq Tablet,Er Particles/Crystals 40 meq PO DAILY Qty: 60 RF: 0 Primary Care Provider: Jeffrey Marie Referrals: Jeffrey Marie DO [Primary Care Provider] - Disposition Disposition: Acute Care Hospital [facility]
[2022-03-06 10:55] LABS: Absolute Lymphocyte Count 1.89 X10^3/uL (0.83-4.51); Absolute Neutrophil Count 3.1 X10^3/uL (2.0-7.7); Basophil# 0.04 X10^3/uL; Basophil% 0.7 % (0-1); Eosinophil# 0.06 X10^3/uL; Eosinophils% 1.1 % (0-5); Hematocrit 32.9 % (37-47); Hemoglobin 10.7 g/dL (12.0-15.0); Lymphocyte # 1.89 X10^3/ul (0.83-4.51); Lymphocyte % 33.9 % (19-41); Mean Corp Hgb Conc 32.5 g/dL (32-36); Mean Corpuscular Hgb 28.7 pg (27.0-32.0); Mean Corpuscular Volume 88.2 fL (81-99); Mean Platelet Vol. 9.2 fl (6.2-12.0); Monocyte# 0.47 X10^3/uL; Monocyte% 8.4 % (0-10); NRBC Flagged by Analyzer 0 % (0-5); Neutrophil # 3.11 X10^3/uL (2.7-7.7); Neutrophil % 55.7 % (47-70); Platelet Count 417 K/mm3 (150-450); RBC Distribution Width CV 16.2 % (11.6-14.6); Red Blood Count 3.73 M/mm3 (4.2-5.4); White Blood Count 5.6 K/mm3 (4.4-11.0)
[2022-03-06 11:07] LABS: Anion Gap 5 (5-15); BUN 6 mg/dL (7-18); BUN/Creat Ratio 15.8 RATIO (10-20); Calcium,Total 9.6 mg/dL (8.5-10.1); Chloride 105 mmol/L (98-107); Creatinine, Serum 0.38 mg/dL (0.55-1.02); EST Glomerular Filtration Rate 191 mL/min (>60); Est Glom Filt Rate - Afr Amer 231 mL/min (>60); Estimated Creatinine Clearance 146.51 ml/min; Glucose 95 mg/dL (74-106); Potassium 2.9 mmol/L (3.5-5.1); Sodium Level 140 mmol/L (136-145)
--- NOTE | 2022-03-06 11:27 | HP.PCM.HOS_ITS ---
HPI - General General Date of Admission: 03/06/22 Date of Service: 03/06/22 Chief Complaint: Abdominal distention ongoing for 2 days HPI Narrative KAYCEE NELSON, is a 51 F who presents with the above. Patient was recently discharged on after admission for megacolon with an initial concern for acute loop syndrome and found to have a distal sigmoid colon stricture, that was dilated. Patient had followed up with general surgery in the outpatient and was referred to colorectal surgery. Patient and her said their first choice was to see a surgeon in [place]. Their appointment is on March 16. Patient stated that since her discharge, she is done fairly well. She however ate some broccoli 2 days prior to admission. She started noticing abdominal distention. She has abdominal discomfort. She has not passed gas in 2 days. Denied any fever or chills. She denied any nausea or vomiting. Vitals in the ED showed blood pressure 139/97, heart rate 94, respiratory 17, temperature 98.6 F, oxygen saturation 96% on room air. WBC count is 5.6, hemoglobin 10.7, platelet count 417, sodium 140, potassium 2.9, chloride 105, 30, BUN 6, creatinine 0.38, magnesium 2.2. [facility] Medical History Colon cancer Hypertension Home Medications telmisartan 40 mg PO DAILY 02/17/22 [History Last Taken 03/04/22] potassium chloride [Klor-Con M20] 40 meq PO DAILY #60 tab 02/21/22 [Rx Last Taken 03/04/22] Allergy/AdvReac Type Severity Reaction Status Date / Time No Known Allergies Allergy Verified 03/06/22 10:13 Surgical History Hx of cholecystectomy Social History Smoking Status: Never smoker alcohol intake: never substance use type: does not use ROS ROS Narrative Constitutional: Denies: Anorexia, Chills, Fever, Night Sweats, Weight Change Eyes: Denies: Blurred vision, Cataracts, Conjunctivae Inflammation, Pain, Redness, Vision Change HEENT: Denies: Difficulty Hearing, Difficulty Swallowing, Head Aches, Hearing Changes, Sinus Congestion, Sinus Drainage Cardiovascular: Denies: Chest Pain, Orthopnea, Palpitations Respiratory: Denies: Cough, Shortness of breath at rest, Sputum production Gastrointestinal: See HPI Genitourinary: Denies: Dysuria Musculoskeletal: Denies: Joint Pain, Joint stiffness, Joint swelling, Joint Tenderness Skin: Denies: Rash, Wounds Neurological: Denies: Numbness, Tingling, Focal weakness Vital Signs Vital Signs Vital Signs: 03/06/22 10:14 Temperature 98.6 F Temperature Source Temporal Pulse Rate 94 Respiratory Rate 17 Blood Pressure 139/97 H Blood Pressure Mean 111 Pulse Ox 96 Oxygen Delivery Method Room Air Weight Weight: 60.5 kg Body Mass Index (BMI) 23.6 Physical Exam Narrative Physical exam: General: Alert, Oriented x3, Cooperative, No apparent distress, frail HEENT: Atraumatic Oral: Moist Mucosa Neck: Supple Lungs: Clear to auscultation Cardiovascular: HS I+II, regular, no murmurs Abdomen: Distended, nontender, bowel Sounds hypoactive, Soft, Non Tender Extremities: No edema Skin: No rashes, No breakdown Neurological: Grossly intact Psych/Mental Status: Appropriate Results Lab / Micro Data Result Diagrams: 03/06/22 10:45 03/06/22 10:45 Labs: Laboratory Results - last 24 hr 03/06/22 10:45: WBC 5.6, RBC 3.73 L, Hgb 10.7 L, Hct 32.9 L, MCV 88.2, MCH 28.7, MCHC 32.5, RDW Std Deviation 52.0 H, RDW Coeff of Jameel 16.2 H, Plt Count 417, MPV 9.2, Immature Gran % (Auto) 0.200, Neut % (Auto) 55.7, Lymph % (Auto) 33.9, [place] % (Auto) 8.4, Eos % (Auto) 1.1, Baso % (Auto) 0.7, Absolute Neuts (auto) 3.1, Absolute Lymphs (auto) 1.89, Nucleated RBC % 0 03/06/22 10:45: Sodium 140, Potassium 2.9 L, Chloride 105, Carbon Dioxide 30.0, Anion Gap 5, BUN 6 L, Creatinine 0.38 L, Estim Creat Clear Calc 146.51, Est GFR (MDRD) Af Amer 231, Est GFR (MDRD) Non-Af 191, BUN/Creatinine Ratio 15.8, Glucose 95, Calcium 9.6 Assessment & Plan Assessment/Plan (1) Colon distention: (2) Colon cancer: QUALIFIERS: Colon location: descending Qualified Code(s): 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 Acute onset of obstipation secondary to moderately differentiated invasive adenocarcinoma Patient presented with bowel obstruction Admit to PCU, keep n.p.o., IV fluids, GI consulted from the ED for decompressive colonoscopy Patient has a planned follow-up in [place] to see colorectal surgery 2. Hypokalemia, potassium 2.9, magnesium 2.2 Replace potassium, recheck in a.m. 3. Hypertension, slightly uncontrolled, home telmisartan on hold Continue to monitor vitals, hydralazine as needed 4. DVT PPx- Heparin SC Charges/Coding Visit Charges Inpatient E&M: 90276 Init Hosp L3
[2022-03-06 11:42] LABS: Magnesium 2.2 mg/dL (1.6-2.6)
[2022-03-06] MEDS: Potassium Chloride 10mEq/100mL 10 MEQ/100 ML IV.SOLN. 100 MEQ IV BOLUS ×4 (11:55→16:31)
--- NOTE | 2022-03-06 12:11 | CASEMGMT ---
Readmission chart review: 02/17-02/21/22 Acquired megacolon 03/06/22-current Pt presented to [facility] ED on 02/17/22 for bilat foot edema and large distended abd. Pt was admitted for Acquired megacolon and hypokalemia. GI was consulted and performed a decompressive colonoscopy with a f/u 2 days later in which he found a likely malignant partially obstrucing tumor in the proximal sigmoid colon-biopsied and a stricture in the recto-sigmoid coin and the sigmoid colon-dilated. Dr. Leigh was also consulted and pt had f/u appt scheduled for 03/03/22. Biopsy showed invasive adenocarcinoma and Dr. Leigh recommended pt to f/u with colorectal surgeon at tertiary facility d/t same and location of the cancer. Pt wanted to look into going to [facility] in [place] but referral was also made to [facility] locally. Dr Pathak ordered OP x-ray for pt's increased abd pain/distention and pt returned to [facility] ED on 03/06/22 s/p OP x-ray today, which revealed distended bowel again. Dr. Pathak recommended that pt be transferred from [facility] ED today to tertiary center for colorectal surgeon consult but pt declined transfer despite the risks that this delay could lead to further progression of her cancer. Pt states would like to f/u with surgeon later and just have Dr. Pathak complete another decompression. Pt has family support and went home without concerns last time. CM to follow. Sarah GUNDERSON CM
[2022-03-06] MEDS: 0.9% Normal Saline 1,000 ML 100 ML IV ×2 (13:12→21:20)
--- NOTE | 2022-03-06 18:17 | CON.PCM_ITS ---
Assessment & Plan Assessment/Plan (1) Colon distention: PLAN: Colonic distention secondary to likely plugging of the colonic stricture secondary to stool burden. She will undergo decompressive colonoscopy. Hopefully this will be enough to have her be able to present to her surgery evaluation on March 16. She was explained alternatives, risk, benefits including not withstanding bleeding, infection, sepsis, perforation, need for emergency or . She have an ASA of 1. (2) Colon cancer: QUALIFIERS: Colon location: descending Qualified Code(s): C18.6 - Malignant neoplasm of descending colon PLAN: She has not been staged with CEA or CT scan of the chest abdomen pelvis. She does not want any further work-up at the hospital at this time. HPI Consult Data Date of Consult: 03/06/22 HPI Narrative HPI Narrative: KAYCEE NELSON, is a 51 F who presents with distention. She recently was discharged from the hospital after being diagnosed with large bowel obstruction secondary to a rectosigmoid colonic stricture from colon cancer. S he said that she has been eat a lot of fiber and was going to the bathroom normal up until yesterday. She has a scheduled appointment for colorectal surgeon on March 16 in [facility] the surgeon's name is Dr. Thompson Pelaez at the [address] Originally she presented to the ED on 01/15/2022 with abdominal pain that has been getting progressively worse over a week. Patient states her pain is diffuse across her abdomen. Patient states it is worse with eating. Patient states nothing seems to help with it. Patient admits to some nausea and vomiting. Patient denies any diarrhea, melena, or hematochezia. Patient states she has been constipated. Patient tried enemas at home with no improvement. Patient denies any urinary complaints. Patient denies any fevers or chills. Comprehensive metabolic profile showed a mild hypokalemia of 3.0. Urinalysis does not show any evidence of urinary tract infection or hematuria. CT scan of the abdomen pelvis was obtained. There was a very large amount of fecal material seen throughout the entire colon. There is no evidence of bowel obstruction. This was interpreted by the radiologist and reviewed by myself. Patient was given a soapsuds enema with minimal improvement. Patient was advised of her findings. Patient was instructed to drink plenty of fluids. Patient was given a prescription for magnesium citrate. Patient was also instructed to get [id number] MiraLAX to take as needed for constipation. Patient was instructed to follow-up with her primary care physician in 5 to 7 days. She comes back into the hospital today with worsening abdominal distention and not had a bowel movement for several days. Her CT scan of the abdomen pelvis in the ED is very large and shows possible megacolon. She denies any recent infections. She has no history of C. difficile. She has no history of ulcerative colitis. Only past medical history is chronic idiopathic constipation. [facility] Medical History Colon cancer Hypertension Home Medications telmisartan 40 mg PO DAILY 02/17/22 [History Last Taken 03/04/22] potassium chloride [Klor-Con M20] 40 meq PO DAILY #60 tab 02/21/22 [Rx Last Taken 03/04/22] Allergy/AdvReac Type Severity Reaction Status Date / Time No Known Allergies Allergy Verified 03/06/22 10:13 Surgical History Hx of cholecystectomy Social History Smoking Status: Never smoker alcohol intake: never substance use type: does not use ROS Gastrointestinal Gastrointestinal: Reports constipation Physical Exam Const alert General Appearance: cooperative Orientation / Consciousness: oriented to person HEENT hearing grossly normal bilaterally Head and Scalp: normal to inspection Face and Sinus: face symmetric Nose: external nose normal Mouth: oral and palatal mucosa normal Eyes conjunctivae normal General Eye: normal appearance of both eyes Neck full ROM General: normal visual inspection Lymph Lymphatic: no lymphadenopathy noted Chest inspection of chest normal and palpation of chest normal Chest: symmetrical chest wall rise Resp normal respiratory effort Effort and Inspection: able to speak in complete sentences Cardio regular rate GI non-distended Percussion: normal to percussion Rectal Exam: deferred Neuro Speech: speech normal Gait (Neuro): normal gait Medical Records Data Medical Nutrition Assessment Dietitian: Malnutrition Criteria Met Start: 03/06/22 14:58 Freq: Status: Active Protocol: Document 03/06/22 14:58 PRISCA (Rec: 03/06/22 14:58 PRISCA [id number]) Nutrition Malnutrition Evidence of Malnutrition Exists Yes Malnutrition (severe): Acute Illness/Injury Evidenced By Suboptimal Energy Intake ( Severe),Weight Loss (Severe), Physical Changes (Moderate) Clinical Problem Acute Disease or Injury Related Malnutrition Etiology severe malnutrition related to inadequate intake d/t GI dysfunction Signs/Symptoms as evidence by <50% po intake of estimated nutritional needs > 1 month, 13.5% wt loss x <2 months and muscle/fat wasting orbitals/buccal/temporal areas, clavicles, acromion process, arms. Status Active Problem Recommendation Dietitian Recommendations/Changes Rec BRENDAN to Transitional w/ gradual increase of fiber/ fluids as tolerated Rec 120 ml ensure enlive with medpass 4x/day when medically able - pt prefers strawberry flavor Lab / Micro Data Result Diagrams: 03/06/22 10:45 03/06/22 10:45 Labs: Laboratory Results - last 24 hr 03/06/22 10:45: WBC 5.6, RBC 3.73 L, Hgb 10.7 L, Hct 32.9 L, MCV 88.2, MCH 28.7, MCHC 32.5, RDW Std Deviation 52.0 H, RDW Coeff of Jameel 16.2 H, Plt Count 417, MPV 9.2, Immature Gran % (Auto) 0.200, Neut % (Auto) 55.7, Lymph % (Auto) 33.9, [place] % (Auto) 8.4, Eos % (Auto) 1.1, Baso % (Auto) 0.7, Absolute Neuts (auto) 3.1, Absolute Lymphs (auto) 1.89, Nucleated RBC % 0 03/06/22 10:45: Sodium 140, Potassium 2.9 L, Chloride 105, Carbon Dioxide 30.0, Anion Gap 5, BUN 6 L, Creatinine 0.38 L, Estim Creat Clear Calc 146.51, Est GFR (MDRD) Af Amer 231, Est GFR (MDRD) Non-Af 191, BUN/Creatinine Ratio 15.8, Gluc ose 95, Calcium 9.6 03/06/22 10:45: Magnesium 2.2 Charges/Coding Visit Charges Inpatient E&M: 05035 Init Hosp L2
[2022-03-06] MEDS: Acetaminophen 325 MG Tablet 650 MG PO (21:16)
[2022-03-06] MEDS: Heparin Injection (Vial) 5,000 UNIT/ML VIAL 5000 UNIT SC (21:20)
[2022-03-07] VITALS (10 sets, daily range): BP systolic 134–143; BP diastolic 86–95; PULSE 89–101; RESP 18–20; TEMP 36.5–37.1; O2SAT 95–97
[2022-03-07] MEDS: Acetaminophen 325 MG Tablet 650 MG PO ×2 (04:18→20:34)
[2022-03-07 05:58] LABS: Absolute Lymphocyte Count 1.61 X10^3/uL (0.83-4.51); Absolute Neutrophil Count 3.3 X10^3/uL (2.0-7.7); Basophil# 0.05 X10^3/uL; Basophil% 0.9 % (0-1); Eosinophil# 0.08 X10^3/uL; Eosinophils% 1.5 % (0-5); Hemoglobin 11.1 g/dL (12.0-15.0); Lymphocyte # 1.61 X10^3/ul (0.83-4.51); Lymphocyte % 29.6 % (19-41); Mean Corp Hgb Conc 32.6 g/dL (32-36); Mean Corpuscular Hgb 28.5 pg (27.0-32.0); Mean Corpuscular Volume 87.4 fL (81-99); Mean Platelet Vol. 9.1 fl (6.2-12.0); Monocyte# 0.38 X10^3/uL; NRBC Flagged by Analyzer 0 % (0-5); Neutrophil # 3.31 X10^3/uL (2.7-7.7); Neutrophil % 60.8 % (47-70); Platelet Count 397 K/mm3 (150-450); RBC Distribution Width CV 15.9 % (11.6-14.6); RBC Distribution Width SD 51.1 fl (35.1-43.9); Red Blood Count 3.89 M/mm3 (4.2-5.4); White Blood Count 5.4 K/mm3 (4.4-11.0)
[2022-03-07] MEDS: 0.9% Normal Saline 1,000 ML 100 ML IV ×2 (06:05→17:24)
[2022-03-07 06:29] LABS: ALB/GLOB Ratio 0.8 RATIO (0.9-2.4); AST(SGOT) 28 U/L (15-37); Alanine Aminotransfer ALT/SGPT 66 U/L (13-56); Albumin, Serum 2.9 g/dL (3.2-5.0); Alkaline Phosphatase 148 U/L (45-117); Anion Gap 7 (5-15); BUN 8 mg/dL (7-18); BUN/Creat Ratio 23.5 RATIO (10-20); Calcium,Total 9.2 mg/dL (8.5-10.1); Chloride 109 mmol/L (98-107); Creatinine, Serum 0.34 mg/dL (0.55-1.02); EST Glomerular Filtration Rate 215 mL/min (>60); Est Glom Filt Rate - Afr Amer 261 mL/min (>60); Estimated Creatinine Clearance 163.75 ml/min; Globulin 3.8 g/dL (2.2-4.2); Glucose 79 mg/dL (74-106); Magnesium 2.1 mg/dL (1.6-2.6); Potassium 4.5 mmol/L (3.5-5.1); Protein, Total 6.7 g/dL (6.4-8.2); Sodium Level 139 mmol/L (136-145)
--- NOTE | 2022-03-07 09:28 | PCM.PROGNOTE ---
Subjective Subjective Patient underwent a decompressive colonoscopy. She is doing well. She does not have any abdominal pain. Objective Data Objective Data Vital Signs: Vital Signs Temp Pulse Resp BP Pulse Ox 98.2 F 97 18 140/95 H 95 03/07/22 05:59 03/07/22 07:37 03/07/22 05:59 03/07/22 05:59 03/07/22 07:20 Oxygen Delivery Method Room Air Weight: 136 lb 7.458 oz Body Mass Index (BMI) 23.3 Intake & Output: Intake and Output for Last 24 Hours 03/05/22 03/06/22 03/07/22 23:59 23:59 23:59 Intake Total 1213.33 / 1453.33 1628.3333 / 1628.3333 Balance 1213.33 / 1453.33 1628.3333 / 1628.3333 Medical Nutrition Assessment Dietitian: Malnutrition Criteria Met Start: 03/06/22 14:58 Freq: Status: Active Protocol: Document 03/06/22 14:58 SLA (Rec: 03/06/22 14:58 SLA [id number]) Nutrition Malnutrition Evidence of Malnutrition Exists Yes Malnutrition (severe): Acute Illness/Injury Evidenced By Suboptimal Energy Intake ( Severe),Weight Loss (Severe), Physical Changes (Moderate) Clinical Problem Acute Disease or Injury Related Malnutrition Etiology severe malnutrition related to inadequate intake d/t GI dysfunction Signs/Symptoms as evidence by <50% po intake of estimated nutritional needs > 1 month, 13.5% wt loss x <2 months and muscle/fat wasting orbitals/buccal/temporal areas, clavicles, acromion process, arms. Status Active Problem Recommendation Dietitian Recommendations/Changes Rec BRENDAN to Transitional w/ gradual increase of fiber/ fluids as tolerated Rec 120 ml ensure enlive with medpass 4x/day when medically able - pt prefers strawberry flavor Lab / Micro Data Result Diagrams: 03/07/22 05:51 03/07/22 05:51 Labs: Laboratory Results - last 24 hr 03/06/22 10:45: WBC 5.6, RBC 3.73 L, Hgb 10.7 L, Hct 32.9 L, MCV 88.2, MCH 28.7, MCHC 32.5, RDW Std Deviation 52.0 H, RDW Coeff of Jameel 16.2 H, Plt Count 417, MPV 9.2, Immature Gran % (Auto) 0.200, Neut % (Auto) 55.7, Lymph % (Auto) 33.9, [place] % (Auto) 8.4, Eos % (Auto) 1.1, Baso % (Auto) 0.7, Absolute Neuts (auto) 3.1, Absolute Lymphs (auto) 1.89, Nucleated RBC % 0 03/06/22 10:45: Sodium 140, Potassium 2.9 L, Chloride 105, Carbon Dioxide 30.0, Anion Gap 5, BUN 6 L, Creatinine 0.38 L, Estim Creat Clear Calc 146.51, Est GFR (MDRD) Af Amer 231, Est GFR (MDRD) Non-Af 191, BUN/Creatinine Ratio 15.8, Glucose 95, Calcium 9.6 03/06/22 10:45: Magnesium 2.2 03/07/22 05:51: WBC 5.4, RBC 3.89 L, Hgb 11.1 L, Hct 34.0 L, MCV 87.4, MCH 28.5, MCHC 32.6, RDW Std Deviation 51.1 H, RDW Coeff of Jameel 15.9 H, Plt Count 397, MPV 9.1, Immature Gran % (Auto) 0.200, Neut % (Auto) 60.8, Lymph % (Auto) 29.6, Russell % (Auto) 7.0, Eos % (Auto) 1.5, Baso % (Auto) 0.9, Absolute Neuts (auto) 3.3, Absolute Lymphs (auto) 1.61, Nucleated RBC % 0 03/07/22 05:51: Sodium 139, Potassium 4.5, Chloride 109 H, Carbon Dioxide 23.0, Anion Gap 7, BUN 8, Creatinine 0.34 L, Estim Creat Clear Calc 163.75, Est GFR (MDRD) Af Amer 261, Est GFR (MDRD) Non-Af 215, BUN/Creatinine Ratio 23.5 H, Glucose 79, Calcium 9.2, Magnesium 2.1, Total Bilirubin 0.50, AST 28, ALT 66 H, Alkaline Phosphatase 148 H, Total Protein 6.7, Albumin 2.9 L, Globulin 3.8, Albumin/Globulin Ratio 0.8 L Physical Exam Const alert General Appearance: cooperative Orientation / Consciousness: oriented to person HEENT hearing grossly normal bilaterally Head and Scalp: normal to inspection Face and Sinus: face symmetric Nose: external nose normal Mouth: oral and palatal mucosa normal Eyes conjunctivae normal General Eye: normal appearance of both eyes Neck full ROM General: normal visual inspection Lymph Lymphatic: no lymphadenopathy noted Chest inspection of chest normal and palpation of chest normal Chest: symmetrical chest wall rise Resp normal respiratory effort Effort and Inspection: able to speak in complete sentences Cardio regular rate GI non-distended Percussion: normal to percussion Rectal Exam: deferred Neuro Speech: speech normal Gait (Neuro): normal gait Assessment & Plan Assessment/Plan (1) Colon cancer: QUALIFIERS: Colon location: descending Qualified Code(s): C18.6 - Malignant neoplasm of descending colon PLAN: She has a scheduled appointment on March 16 to see colorectal surgeon and [facility]. She was instructed not to take in any fiber and to stay on a full liquid diet along with taking stool softeners at least twice a day. (2) Colon distention: PLAN: She will need to take a prep today to clean out all the stool that still remains in her colon. She will need Levaquin and Flagyl for 7 days along with 20 mg of prednisone to decrease the swelling at the colonic stricture site. Charges/Coding Visit Charges Inpatient E&M: 26321 Subs Hosp L2
[2022-03-07] MEDS: Bisacodyl 5 MG Tablet 20 MG PO (09:37)
[2022-03-07] MEDS: Heparin Injection (Vial) 5,000 UNIT/ML VIAL 5000 UNIT SC ×2 (09:37→20:33)
--- NOTE | 2022-03-07 09:52 | PCM.PN.HOSP ---
Subjective Subjective Follow-up on bowel obstruction secondary malignant appearing, extrinsic severe stenosis: Patient was seen and examined. She underwent decompressive colonoscopy; findings showed malignant appearing intrinsic severe stenosis measuring 3 cm x 3 mm in the rectosigmoid colon. This was dilated. Extensive amounts of liquid to semiliquid stool was found in the entire colon. Discussed with GI, patient would have IV antibiotics, and undergo bowel prep. Objective Data Objective Data Vital Signs: Vital Signs Temp Pulse Resp BP Pulse Ox 98.2 F 95 18 141/90 H 95 03/07/22 09:49 03/07/22 09:49 03/07/22 09:49 03/07/22 09:49 03/07/22 09:49 Oxygen Delivery Method Room Air Weight: 61.9 kg Body Mass Index (BMI) 23.3 Intake & Output: Intake and Output for Last 24 Hours 03/05/22 03/06/22 03/07/22 23:59 23:59 23:59 Intake Total 1213.33 / 1453.33 1628.3333 / 1628.3333 Balance 1213.33 / 1453.33 1628.3333 / 1628.3333 Medical Nutrition Assessment Dietitian: Malnutrition Criteria Met Start: 03/06/22 14:58 Freq: Status: Active Protocol: Document 03/06/22 14:58 [facility] (Rec: 03/06/22 14:58 [facility] [id number]) Nutrition Malnutrition Evidence of Malnutrition Exists Yes Malnutrition (severe): Acute Illness/Injury Evidenced By Suboptimal Energy Intake ( Severe),Weight Loss (Severe), Physical Changes (Moderate) Clinical Problem Acute Disease or Injury Related Malnutrition Etiology severe malnutrition related to inadequate intake d/t GI dysfunction Signs/Symptoms as evidence by <50% po intake of estimated nutritional needs > 1 month, 13.5% wt loss x <2 months and muscle/fat wasting orbitals/buccal/temporal areas, clavicles, acromion process, arms. Status Active Problem Recommendation Dietitian Recommendations/Changes Rec BRENDAN to Transitional w/ gradual increase of fiber/ fluids as tolerated Rec 120 ml ensure enlive with medpass 4x/day when medically able - pt prefers strawberry flavor Lab / Micro Data Result Diagrams: 03/07/22 05:51 03/07/22 05:51 Labs: Laboratory Results - last 24 hr 03/06/22 10:45: WBC 5.6, RBC 3.73 L, Hgb 10.7 L, Hct 32.9 L, MCV 88.2, MCH 28.7, MCHC 32.5, RDW Std Deviation 52.0 H, RDW Coeff of Jameel 16.2 H, Plt Count 417, MPV 9.2, Immature Gran % (Auto) 0.200, Neut % (Auto) 55.7, Lymph % (Auto) 33.9, [place] % (Auto) 8.4, Eos % (Auto) 1.1, Baso % (Auto) 0.7, Absolute Neuts (auto) 3.1, Absolute Lymphs (auto) 1.89, Nucleated RBC % 0 03/06/22 10:45: Sodium 140, Potassium 2.9 L, Chloride 105, Carbon Dioxide 30.0, Anion Gap 5, BUN 6 L, Creatinine 0.38 L, Estim Creat Clear Calc 146.51, Est GFR (MDRD) Af Amer 231, Est GFR (MDRD) Non-Af 191, BUN/Creatinine Ratio 15.8, Glucose 95, Calcium 9.6 03/06/22 10:45: Magnesium 2.2 03/07/22 05:51: WBC 5.4, RBC 3.89 L, Hgb 11.1 L, Hct 34.0 L, MCV 87.4, MCH 28.5, MCHC 32.6, RDW Std Deviation 51.1 H, RDW Coeff of Jameel 15.9 H, Plt Count 397, MPV 9.1, Immature Gran % (Auto) 0.200, Neut % (Auto) 60.8, Lymph % (Auto) 29.6, [place] % (Auto) 7.0, Eos % (Auto) 1.5, Baso % (Auto) 0.9, Absolute Neuts (auto) 3.3, Absolute Lymphs (auto) 1.61, Nucleated RBC % 0 03/07/22 05:51: Sodium 139, Potassium 4.5, Chloride 109 H, Carbon Dioxide 23.0, Anion Gap 7, BUN 8, Creatinine 0.34 L, Estim Creat Clear Calc 163.75, Est GFR (MDRD) Af Amer 261, Est GFR (MDRD) Non-Af 215, BUN/Creatinine Ratio 23.5 H, Glucose 79, Calcium 9.2, Magnesium 2.1, Total Bilirubin 0.50, AST 28, ALT 66 H, Alkaline Phosphatase 148 H, Total Protein 6.7, Albumin 2.9 L, Globulin 3.8, Albumin/Globulin Ratio 0.8 L Physical Exam Narrative Physical exam: General: Alert, Oriented x3, Cooperative, No apparent distress, frail HEENT: Atraumatic Oral: Moist Mucosa Neck: Supple Lungs: Clear to auscultation Cardiovascular: HS I+II, regular, no murmurs Abdomen: Distended, but improved, nontender, bowel Sounds hypoactive, Soft, Non Tender Extremities: No edema Skin: No rashes, No breakdown Neurological: Grossly intact Psych/Mental Status: Appropriate Const Orientation / Consciousness: lethargic Assessment & Plan Assessment/Plan (1) Colon distention: (2) Colon cancer: QUALIFIERS: Colon location: descending Qualified Code(s): 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 Acute onset of obstipation secondary to moderate to severe stenosis from moderately differentiated invasive adenocarcinoma Status post decompressive colonoscopy (03/07/22) Continue on full liquid diet, continue with bowel prep with bisacodyl and GoLytely Continue with prophylactic antibiotics 2. Hypokalemia, resolved, recheck in a.m. 3. Hypertension, better controlled, continue to hold home telmisartan 4. DVT PPx- Heparin SC Charges/Coding Visit Charges Inpatient E&M: 27622 Subs Hosp L2
[2022-03-07] MEDS: metroNIDAZOLE 500 MG/100 ML BAG 100 MG IV ×3 (10:11→20:33)
[2022-03-07] MEDS: levoFLOXacin IV 500 MG/100 ML BAG 100 MG IV (11:22)
[2022-03-08 02:30] VITALS: BP 114/86; PULSE 86; RESP 20; TEMP 36.9; O2SAT 96
[2022-03-08 03:00] VITALS: PULSE 84
[2022-03-08] MEDS: 0.9% Normal Saline 1,000 ML 100 ML IV (04:29)
[2022-03-08] MEDS: metroNIDAZOLE 500 MG/100 ML BAG 100 MG IV (04:29)
[2022-03-08 06:16] LABS: Absolute Lymphocyte Count 2.25 X10^3/uL (0.83-4.51); Absolute Neutrophil Count 1.8 X10^3/uL (2.0-7.7); Basophil# 0.03 X10^3/uL; Basophil% 0.6 % (0-1); Eosinophil# 0.16 X10^3/uL; Eosinophils% 3.4 % (0-5); Hematocrit 32.3 % (37-47); Hemoglobin 10.5 g/dL (12.0-15.0); Lymphocyte # 2.25 X10^3/ul (0.83-4.51); Lymphocyte % 47.9 % (19-41); Mean Corp Hgb Conc 32.5 g/dL (32-36); Mean Corpuscular Hgb 28.8 pg (27.0-32.0); Mean Corpuscular Volume 88.7 fL (81-99); Mean Platelet Vol. 9.3 fl (6.2-12.0); Monocyte# 0.48 X10^3/uL; Monocyte% 10.2 % (0-10); NRBC Flagged by Analyzer 0 % (0-5); Neutrophil # 1.77 X10^3/uL (2.7-7.7); Neutrophil % 37.7 % (47-70); Platelet Count 391 K/mm3 (150-450); RBC Distribution Width CV 15.8 % (11.6-14.6); RBC Distribution Width SD 51.3 fl (35.1-43.9); Red Blood Count 3.64 M/mm3 (4.2-5.4); White Blood Count 4.7 K/mm3 (4.4-11.0)
[2022-03-08 06:49] LABS: ALB/GLOB Ratio 0.9 RATIO (0.9-2.4); AST(SGOT) 20 U/L (15-37); Alanine Aminotransfer ALT/SGPT 52 U/L (13-56); Albumin, Serum 2.8 g/dL (3.2-5.0); Alkaline Phosphatase 119 U/L (45-117); Anion Gap 6 (5-15); BUN 5 mg/dL (7-18); BUN/Creat Ratio 13.4 RATIO (10-20); Calcium,Total 9.2 mg/dL (8.5-10.1); Chloride 111 mmol/L (98-107); Creatinine, Serum 0.37 mg/dL (0.55-1.02); EST Glomerular Filtration Rate 194 mL/min (>60); Est Glom Filt Rate - Afr Amer 234 mL/min (>60); Estimated Creatinine Clearance 150.47 ml/min; Globulin 3.2 g/dL (2.2-4.2); Glucose 101 mg/dL (74-106); Sodium Level 141 mmol/L (136-145)
[2022-03-08 07:00] VITALS: PULSE 86
[2022-03-08 07:20] VITALS: O2SAT 98
--- NOTE | 2022-03-08 07:24 | PCM.DC ---
Discharge Instructions Diet Discharge Diet: - (full liquid diet) Activity Discharge Activity: Return to Normal Activity Weight Bearing Status: Weight bearing as tolerated Follow Up Care Test Results: Test results from this visit will be discussed in further detail at your follow-up appointment, if applicable. Discharge Plan Admission Admit Date/Time: 03/06/22 11:20 Primary Reason for Your Visit: Acute intestinal obstruction Attending Provider: Keyana Mack Primary Care Provider: Jeffrey Marie Instructions Additional Instructions / Restrictions: Continue on a full liquid diet. Continue to take all your medications as prescribed. Complete your antibiotics. Discharge Orders/Prescriptions Prescriptions: Continued telmisartan 40 mg Tablet 40 mg PO DAILY RF: 0 potassium chloride [Klor-Con M20] 20 mEq Tablet,Er Particles/Crystals 40 meq PO DAILY Qty: 60 RF: 0 docusate sodium [Colace] 100 mg capsule 100 mg PO BID Qty: 60 RF: 0 prednisone 20 mg tablet 20 mg PO DAILY Qty: 7 RF: 0 levofloxacin 500 mg tablet 500 mg PO DAILY Qty: 7 RF: 0 Discontinued levofloxacin 500 mg tablet 500 mg PO DAILY Qty: 7 RF: 0 Referrals / Follow Up: Jeffrey Marie DO [Primary Care Provider] - In 1 Week Disposition Disposition (needs filled in before D/C Order can be placed): Home, Self Care
--- NOTE | 2022-03-08 07:32 | DS.PCM_ITS ---
Providers Date of Admission: 03/06/22 Date of Discharge: 03/08/22 Primary Care Physician: Dr. Jeffrey Marie, Consultations 03/06/22 12:26 Consult: Gastroenterology Routine Consulting Provider: [facility] Reason for Consult: Bowel obstruction EMERGENT Consult: No MD Notified: Yes Date Notified: 03/06/22 Time Notified: 12:37 Method of Notification: Text Reason For Visit: COLONIC DISTENSION,COLON CR,HYPOKALEMIA Diagnosis Discharge Diagnosis (1) Colon distention: Status: Acute Code(s): K63.89 - Other specified diseases of intestine (2) Colon cancer: Status: Acute Code(s): C18.9 - Malignant neoplasm of colon, unspecified Qualifiers: Colon location: descending Qualified Code(s): C18.6 - Malignant neoplasm of descending colon (3) Severe protein-calorie malnutrition: Status: Acute Code(s): E43 - Unspecified severe protein-calorie malnutrition (4) Hypokalemia: Status: Acute Code(s): E87.6 - Hypokalemia Medications at Discharge Home Medications telmisartan 40 mg PO DAILY 02/17/22 potassium chloride [Klor-Con M20] 40 meq PO DAILY #60 tab 02/21/22 docusate sodium [Colace] 100 mg PO BID 03/08/22 levofloxacin 500 mg PO DAILY 03/08/22 metronidazole 500 mg PO TID 6 Days #18 tab 03/08/22 prednisone 20 mg PO DAILY 03/08/22 Hospital Course Operations None Procedures None Summary of Care Provided Minutes Spent on Discharge: 35 Hospital Course: 51-year-old female with a recent diagnosis of moderately invasive adenocarcinoma of the colon during her recent admission(02/17/22 - 02/21/22) in which patient had presented with intestinal obstruction. In that admission patient was found to have a distal sigmoid colon stricture. After discharge, she followed up with general surgery and had plan to follow-up with surgical oncology in [place]. She presented with a 2-day history of abdominal distention, obstipation and abdominal discomfort. Patient had gone for KUB in the outpatient that showed gaseous distention of the colon. She was asked to go to the ED. She was found to be severely hypokalemic. She was admitted to the PCU and managed conservatively on n.p.o., IV fluids, replacement of electrolytes. She underwent successive decompressive colonoscopy on 03/07/22. She was started on IV antibiotics and prednisone. She underwent bowel prep. She was maintained on a full liquid diet. She was discharged on 1 week of Levaquin and Flagyl as well as prednisone. She has an outpatient surgical oncology appointment in [facility]. She was strongly recommended to keep it. She has evidence of severe protein calorie malnutrition, nutrition was consulted, patient was managed on dietary supplements. On the day of discharge, patient was seen and examined. She was found to be hypokalemic, this was replaced. Physical Exam Narrative Physical exam: General: Alert, Oriented x3, Cooperative, No apparent distress, frail HEENT: Atraumatic Oral: Moist Mucosa Neck: Supple Lungs: Clear to auscultation Cardiovascular: HS I+II, regular, no murmurs Abdomen: Distended, but improved, nontender, bowel Sounds hypoactive, Soft, Non Tender Extremities: No edema Skin: No rashes, No breakdown Neurological: Grossly intact Psych/Mental Status: Appropriate Medical Records Data Medical Nutrition Assessment Dietitian: Malnutrition Criteria Met Start: 03/06/22 14:58 Freq: Status: Active Protocol: Document 03/06/22 14:58 [facility] (Rec: 03/06/22 14:58 [facility] [id number]) Nutrition Malnutrition Evidence of Malnutrition Exists Yes Malnutrition (severe): Acute Illness/Injury Evidenced By Suboptimal Energy Intake ( Severe),Weight Loss (Severe), Physical Changes (Moderate) Clinical Problem Acute Disease or Injury Related Malnutrition Etiology severe malnutrition related to inadequate intake d/t GI dysfunction Signs/Symptoms as evidence by <50% po intake of estimated nutritional needs > 1 month, 13.5% wt loss x <2 months and muscle/fat wasting orbitals/buccal/temporal areas, clavicles, acromion process, arms. Status Active Problem Recommendation Dietitian Recommendations/Changes Rec BRENDAN to Transitional w/ gradual increase of fiber/ fluids as tolerated Rec 120 ml ensure enlive with medpass 4x/day when medically able - pt prefers strawberry flavor Weight / BMI Weight Weight: 57.924 kg Body Mass Index (BMI) 23.3 ABG / Lab / Microbiology Data Result Diagrams: 03/08/22 05:54 03/08/22 05:54 Laboratory: Laboratory Results - last 24 hr 03/08/22 05:54: WBC 4.7, RBC 3.64 L, Hgb 10.5 L, Hct 32.3 L, MCV 88.7, MCH 28.8, MCHC 32.5, RDW Std Deviation 51.3 H, RDW Coeff of Jameel 15.8 H, Plt Count 391, MPV 9.3, Immature Gran % (Auto) 0.200, Neut % (Auto) 37.7 L, Lymph % (Auto) 47.9 H, [place] % (Auto) 10.2 H, Eos % (Auto) 3.4, Baso % (Auto) 0.6, Absolute Neuts (auto) 1.8 L, Absolute Lymphs (auto) 2.25, Nucleated RBC % 0 03/08/22 05:54: Sodium 141, Potassium 3.0 L, Chloride 111 H, Carbon Dioxide 24.0, Anion Gap 6, BUN 5 L, Creatinine 0.37 L, Estim Creat Clear Calc 150.47, Est GFR (MDRD) Af Amer 234, Est GFR (MDRD) Non-Af 194, BUN/Creatinine Ratio 13.4, Glucose 101, Calcium 9.2, Total Bilirubin 0.40, AST 20, ALT 52, Alkaline Phosphatase 119 H, Total Protein 6.0 L, Albumin 2.8 L, Globulin 3.2, Albumin/Mindy bulin Ratio 0.9 D/C Instructions Discharge Diet: - (full liquid diet) Weight Bearing Status: Weight bearing as tolerated Meaningful Use Info Meaningful Use Diagnoses (Choose all that apply): None applicable Discharge Plan Admission Admit Date/Time: 03/06/22 11:20 Primary Reason for Your Visit: Acute intestinal obstruction Attending Provider: Keyana Mack Primary Care Provider: Jeffrey Marie Instructions Additional Instructions / Restrictions: Continue on a full liquid diet. You are instructed not to take in any fiber and to stay on a full liquid diet along with taking stool softeners at least twice a day. Continue to take all your medications as prescribed. Complete your antibiotics. Discharge Orders/Prescriptions Prescriptions: New metronidazole 500 mg tablet 500 mg PO TID 6 Days Qty: 18 RF: 0 Continued telmisartan 40 mg Tablet 40 mg PO DAILY RF: 0 potassium chloride [Klor-Con M20] 20 mEq Tablet,Er Particles/Crystals 40 meq PO DAILY Qty: 60 RF: 0 prednisone 20 mg tablet 20 mg PO DAILY RF: 0 docusate sodium [Colace] 100 mg capsule 100 mg PO BID RF: 0 levofloxacin 500 mg tablet 500 mg PO DAILY RF: 0 Discontinued levofloxacin 500 mg tablet 500 mg PO DAILY Qty: 7 RF: 0 Referrals / Follow Up: Jeffrey Marie DO [Primary Care Provider] - In 1 Week Disposition Disposition (needs filled in before D/C Order can be placed): Home, Self Care Charges/Coding Visit Charges Inpatient E&M: 93017 Disch Hosp
[2022-03-08] MEDS: Potassium Chloride 10mEq/100mL 10 MEQ/100 ML IV.SOLN. 100 MEQ IV BOLUS ×4 (08:12→11:45)
[2022-03-08 08:30] VITALS: BP 126/80; PULSE 92; RESP 18; TEMP 36.9; O2SAT 99
[2022-03-08] MEDS: Heparin Injection (Vial) 5,000 UNIT/ML VIAL 5000 UNIT SC (08:44)
[2022-03-08] MEDS: levoFLOXacin IV 500 MG/100 ML BAG 100 MG IV (09:22)
--- NOTE | 2022-03-08 10:00 | PCM.PROGNOTE ---
Subjective Subjective Patient underwent colonic decompression with dilation of colonic stricture secondary to colon cancer. She did well with prep to clean out her bowel status post dilation of colonic stricture Objective Data Objective Data Vital Signs: Vital Signs Temp Pulse Resp BP Pulse Ox 98.4 F 92 18 126/80 H 99 03/08/22 08:30 03/08/22 08:30 03/08/22 08:30 03/08/22 08:30 03/08/22 08:30 Oxygen Delivery Method Room Air Weight: 127 lb 11.2 oz Body Mass Index (BMI) 23.3 Intake & Output: Intake and Output for Last 24 Hours 03/06/22 03/07/22 03/08/22 23:59 23:59 23:59 Intake Total 1213.33 / 1453.33 4863.3433 / 4863.3433 2109 Balance 1213.33 / 1453.33 4863.3433 / 4863.3433 2109 Lab / Micro Data Result Diagrams: 03/08/22 05:54 03/08/22 05:54 Labs: Laboratory Results - last 24 hr 03/08/22 05:54: WBC 4.7, RBC 3.64 L, Hgb 10.5 L, Hct 32.3 L, MCV 88.7, MCH 28.8, MCHC 32.5, RDW Std Deviation 51.3 H, RDW Coeff of Jameel 15.8 H, Plt Count 391, MPV 9.3, Immature Gran % (Auto) 0.200, Neut % (Auto) 37.7 L, Lymph % (Auto) 47.9 H, [place] % (Auto) 10.2 H, Eos % (Auto) 3.4, Baso % (Auto) 0.6, Absolute Neuts (auto) 1.8 L, Absolute Lymphs (auto) 2.25, Nucleated RBC % 0 03/08/22 05:54: Sodium 141, Potassium 3.0 L, Chloride 111 H, Carbon Dioxide 24.0, Anion Gap 6, BUN 5 L, Creatinine 0.37 L, Estim Creat Clear Calc 150.47, Est GFR (MDRD) Af Amer 234, Est GFR (MDRD) Non-Af 194, BUN/Creatinine Ratio 13.4, Glucose 101, Calcium 9.2, Total Bilirubin 0.40, AST 20, ALT 52, Alkaline Phosphatase 119 H, Total Protein 6.0 L, Albumin 2.8 L, Globulin 3.2, Albumin/Globulin Ratio 0.9 Physical Exam Const alert General Appearance: cooperative Orientation / Consciousness: oriented to person HEENT hearing grossly normal bilaterally Head and Scalp: normal to inspection Face and Sinus: face symmetric Nose: external nose normal Mouth: oral and palatal mucosa normal Eyes conjunctivae normal General Eye: normal appearance of both eyes Neck full ROM General: normal visual inspection Lymph Lymphatic: no lymphadenopathy noted Chest inspection of chest normal and palpation of chest normal Chest: symmetrical chest wall rise Resp normal respiratory effort Effort and Inspection: able to speak in complete sentences Cardio regular rate GI non-distended Percussion: normal to percussion Rectal Exam: deferred Neuro Speech: speech normal Gait (Neuro): normal gait Assessment & Plan Assessment/Plan (1) Hypokalemia: PLAN: Hypokalemia secondary to malnutrition, diarrhea. I will check her magnesium level prior to discharge. Patient is getting her potassium repleted. (2) Severe protein-calorie malnutrition: PLAN: Severe protein, nutrition secondary to 5-week history of poor nutrition. Patient initially presented back in January with colonic obstruction. She is status post dilation to times of colonic stricture. She should take a protein supplement 4-5 times a day and hopefully increase her nutrition prior to surgery. (3) Colon cancer: QUALIFIERS: Colon location: descending Qualified Code(s): C18.6 - Malignant neoplasm of descending colon PLAN: Patient has a scheduled consultation in March 16 at [facility] in [facility]. She will follow-up with surgeon at that time. (4) Rectal stricture: PLAN: She is having good decompression of the colon status post dilation of colonic stricture secondary to colon cancer. Abdominal pain is a lot better. Her and her were given the 2 reports from her colonoscopies and given instructions to take antibiotic prior to seeing the surgeon in approximately 8 days. All questions were answered. Charges/Coding Visit Charges Inpatient E&M: 36867 Subs Hosp L3
== END 2022-03-08 13:10 | disposition home or self-care (01) | DRG 374 ==
LOC: ED 11:19 → PCU 12:04
PROVIDERS: Admitting Provider Internal Medicine; Emergency Provider Emergency Medicine; PCP Family Medicine; Visit Provider Internal Medicine
DX: C18.6 Malignant neoplasm of descending colon (principal); E43 Unspecified severe protein-calorie malnutrition; E87.6 Hypokalemia; I10 Essential (primary) hypertension; K59.04 Chronic idiopathic constipation; K62.4 Stenosis of anus and rectum; Z79.899 Other long term (current) drug therapy; Z90.49 Acquired absence of other specified parts of digestive tract; K63.89 Other specified diseases of intestine; Z68.23 Body mass index [BMI] 23.0-23.9, adult; Z87.19 Personal history of other diseases of the digestive system
CPT/HCPCS: 36415; 80048; 80053; 83735; 85025; 97802; 99251; 99285; J7030; J7040; G0463

== ENCOUNTER → 2022-03-06 | Outpatient (CLI) | payer SELFPAY ==
--- NOTE | 2022-03-06 09:27 | RAD_ITS ---
EXAM: XR ABDOMEN, 1 VIEW CLINICAL INDICATION: constipation colon cancer TECHNIQUE: Frontal supine view of the abdomen/pelvis. This report was created using [employer] report generation technology. COMPARISON: Feb 18 2022 11:01am FINDINGS: LOWER THORAX: No acute pathology. GASTROINTESTINAL TRACT: Gaseous distention of the colon. CT can better evaluate. ORGANS: Unremarkable as visualized. No organomegaly. No abnormal calcifications. BONES/JOINTS: Degenerative findings of the hips. SOFT TISSUES: No acute pathology. RAD/Abdomen Single View IMPRESSION: Gaseous distention of the colon. CT can better evaluate. Electronically Signed: Manjeet Villarreal MD at 16:35 EDT ,
[2022-03-07 08:38] VITALS: BP 145/91; PULSE 84; RESP 16; TEMP 37.3; O2SAT 99
[2022-03-07 08:40] VITALS: BP 139/92; BP 145/91; PULSE 88; RESP 16; O2SAT 100
--- NOTE | 2022-03-07 08:43 | OP.COLON_ITS ---
Patient Name: Gisela Goldberg Procedure Date: 03/07/2022 7:45 AM Date of : 1970 Age: 51 Procedure: Colonoscopy Indications: Abnormal abdominal x-ray of the GI tract, Abnormal CT of the GI tract, Colonic obstruction Providers: Malcom Pathak DO Referring MD: Malcom Pathak DO Medicines: Monitored Anesthesia Care Patient Profile: Last Colonoscopy: within the past month. Complications: No immediate complications. Procedure: Pre-Anesthesia Assessment: - Prior to the procedure, a History and Physical was performed, and patient medications and allergies were reviewed. The risks and benefits of the procedure and the sedation options and risks were discussed with the patient. All questions were answered and informed consent was obtained. Patient identification and proposed procedure were verified by the physician in the pre-procedure area. Mental Status Examination: alert and oriented. Airway Examination: normal oropharyngeal airway and neck mobility. Respiratory Examination: clear to auscultation. CV Examination: normal. Prophylactic Antibiotics: The patient does not require prophylactic antibiotics. Prior Anticoagulants: The patient has taken no previous anticoagulant or antiplatelet agents. After reviewing the risks and benefits, the patient was deemed in satisfactory condition to undergo the procedure. The anesthesia plan was to use moderate sedation / analgesia (conscious sedation). Immediately prior to administration of medications, the patient was re-assessed for adequacy to receive sedatives. The heart rate, respiratory rate, oxygen saturations, blood pressure, adequacy of pulmonary ventilation, and response to care were monitored throughout the procedure. The physical status of the patient was re-assessed after the procedure. After I obtained informed consent, the scope was passed under direct vision. Throughout the procedure, the patient's blood pressure, pulse, and oxygen saturations were monitored continuously. The Colonoscope was introduced through the anus and advanced to the cecum, identified by appendiceal orifice and ileocecal valve. The colonoscopy was performed without difficulty. The patient tolerated the procedure well. The quality of the bowel preparation was poor. Scope In: 8:11:50 AM Scope Out: 8:31:29 AM Total Procedure Duration Time 0 hours 19 minutes 39 seconds Findings: The perianal and digital rectal examinations were normal. A malignant-appearing, intrinsic severe stenosis measuring 3 cm (in length) x 3 mm (inner diameter) was found in the recto-sigmoid colon and was traversed after dilation. A TTS dilator was passed through the scope. Dilation with a 15 mm colonic balloon dilator was performed. The dilation site was examined following endoscope reinsertion and showed moderate improvement in luminal narrowing. Estimated blood loss was minimal. Extensive amounts of liquid semi-liquid semi-solid stool was found in the entire colon. Lavage of the area was performed, resulting in incomplete clearance with continued poor visualization. Impression: - Preparation of the colon was poor. - Stricture in the recto-sigmoid colon. Dilated. - Stool in the entire examined colon. - No specimens collected. Recommendation: - [facility] care. - Flagyl (metronidazole) 750 mg IV loading dose followed by 500 mg IV q 8 hr for 1 week. - Levaquin (levofloxacin) 500 mg IV daily for 1 week. - No recommendation at this time regarding repeat colonoscopy. - Continue present medications. Procedure Code(s): --- Professional --- 01033, Colonoscopy, flexible; with transendoscopic balloon dilation CPT copyright 2017 [employer]. All rights reserved. The codes documented in this report are preliminary and upon customer support associate review may be revised to meet current compliance requirements. Malcom Pathak DO 03/07/2022 8:43:12 AM This report has been signed electronically. Number of Addenda: 1 Note Initiated On: 03/07/2022 7:45 AM Addendum Number: 1 Addendum Date: 07/10/2022 6:08:55 AM MAC was used as sedation for this procedure. Malcom Pathak DO 07/10/2022 6:08:58 AM This report has been signed electronically.
--- NOTE | 2022-03-07 08:43 | OP.CCLET_ITS ---
07/10/2022 Jeffrey Marie Re : Colonoscopy procedure for Gisela Goldberg Dear Cynthia This procedure was performed on Monday, March 07, 2022. My impressions and recommendations are as follows: Impressions : - Preparation of the colon was poor. - Stricture in the recto-sigmoid colon. Dilated. - Stool in the entire examined colon. - No specimens collected. Recommendations : - Return patient to [facility] for [facility] care. - Flagyl (metronidazole) 750 mg IV loading dose followed by 500 mg IV q 8 hr for 1 week. - Levaquin (levofloxacin) 500 mg IV daily for 1 week. - No recommendation at this time regarding repeat colonoscopy. - Continue present medications. My findings are described in the full procedure note, which is enclosed. If I can be of further assistance, please feel free to contact me at . Sincerely, Malcom Pathak, 03/07/2022 8:43:12 AM This report has been signed electronically.
[2022-03-07 08:45] VITALS: BP 140/93; BP 145/91; PULSE 87; RESP 16; O2SAT 99
[2022-03-07 08:50] VITALS: BP 136/97; BP 145/91; PULSE 86; RESP 15; O2SAT 98
[2022-03-07 08:54] VITALS: BP 138/95; BP 145/91; PULSE 88; RESP 16; TEMP 37.2; O2SAT 98
== END | disposition home or self-care (01) ==
PROVIDERS: PCP Family Medicine; Referring Provider Internal Medicine Gastroenterology; Visit Provider Internal Medicine Gastroenterology
PROC: 0DJD8ZZ Inspection of Lower Intestinal Tract, Via Natural or Artificial Opening Endoscopic (ICD-10-PCS; CPT 45378; principal; 2022-03-07 08:00)
DX: K62.4 Stenosis of anus and rectum (principal)
CPT/HCPCS: 74018